=== PATIENT | male | born 1935 | race Caucasian/White ===

== ENCOUNTER → 2018-10-01 15:26 | Outpatient (CLI) | payer MEDICARE, SELFPAY ==
[2017-04-29 19:12] VITALS: BMI 32.2
== END ==
PROVIDERS: Family Provider Student in an Organized Health Care Education/Training Program; PCP Student in an Organized Health Care Education/Training Program; Referring Provider Otolaryngology; Visit Provider Otolaryngology
DX: J32.9 Chronic sinusitis, unspecified (principal)
CPT/HCPCS: 87070; 87205

== ENCOUNTER → 2019-01-21 | Outpatient (CLI) | payer MEDICARE, SELFPAY ==
[2018-12-16 14:39] VITALS: BMI 30.4
--- NOTE | 2019-01-21 14:47 | PFTCOMP_ITS ---
COMPLETE PULMONARY FUNCTION TEST INTERPRETATION Brief HPI: Patient is an 83 year old male, currently under the care of myself, who presents to [facility] for complete pulmonary function tests secondary to diagnosis of cough. Respiratory therapist reports good effort and reproducible results. Interpretation: Forced expiration spirometry shows no large airways obstructive ventilatory defect with an FEV1 of 94% predicted. There is some bronchodilator response, but this does not reach clinical significance by strict ATS criteria. Spirograms are of good quality and plateau normally. The respiratory flow volume loop shows a normal pattern. Lung volumes by body plethysmography show a normal total lung capacity at 4.98 L, 87% predicted. All other lung volumes are within normal limits. Diffusion capacity by carbon monoxide is normal at 82% predicted. The airway resistance is elevated. No previous pulmonary function tests were available for review. Impression: This point function tests are grossly within normal limits. Consider bronchop rovocation study if asthma is a consideration.
== END | disposition home or self-care (01) ==
LOC: PSN 09:50
PROVIDERS: Family Provider Student in an Organized Health Care Education/Training Program; PCP Student in an Organized Health Care Education/Training Program; Referring Provider Internal Medicine Critical Care Medicine; Visit Provider Internal Medicine Critical Care Medicine
DX: J30.2 Other seasonal allergic rhinitis (principal); R05 Cough
CPT/HCPCS: 94060; 94726; 94729

== ENCOUNTER 2019-02-19 12:14 | Day surgery (SDC) | payer MEDICARE, SELFPAY ==
[2019-02-02 10:51] VITALS: BMI 29.4
--- NOTE | 2019-02-18 12:53 | EKG12_ITS ---
Test Reason : PRE OP Blood Pressure : / mmHG Vent. Rate : 068 BPM Atrial Rate : 068 BPM P-R Int : 218 ms QRS Dur : 094 ms QT Int : 370 ms P-R-T Axes : 066 026 043 degrees QTc Int : 393 ms Sinus rhythm with sinus arrhythmia with 1st degree A-V block Otherwise normal ECG Confirmed by ORIANA SIMON, ALEJANDRA ([id number]), communications editor JOLLY BUNCH ([id number]) on 02/19/2019 8:15:16 AM Referred By: Saravanan Ribeiro Confirmed By:DAIN GASTELMU MD
[2019-02-18 13:28] LABS: Hemoglobin 11.7 g/dL (13.0-16.5); Mean Corp Hgb Conc 33.4 g/dL (32-36); Mean Corpuscular Hgb 33.2 pg (27.0-32.0); Mean Corpuscular Volume 99.4 fL (80-94); Mean Platelet Vol. 10.8 fl (6.2-12.0); RBC Distribution Width CV 14.2 % (11.6-14.6); RBC Distribution Width SD 51.5 fl (35.1-43.9); Red Blood Count 3.52 M/mm3 (4.6-6.2)
[2019-02-18 13:37] LABS: Platelet Count 101 K/mm3 (150-450)
[2019-02-18 13:38] LABS: Scan Indicated on CBC? Y/N NO
[2019-02-18 14:03] LABS: Anion Gap 8 (5-15); BUN 18 mg/dL (7-18); BUN/Creat Ratio 13.8 RATIO (10-20); Calcium,Total 8.7 mg/dL (8.5-10.1); Chloride 100 mmol/L (98-107); EST Glomerular Filtration Rate 56 mL/min (>60); Est Glom Filt Rate - Afr Amer 68 mL/min (>60); Glucose 224 mg/dL (74-106); Potassium 4.7 mmol/L (3.5-5.1); Sodium Level 135 mmol/L (136-145)
[2019-02-18 16:07] LABS: AST(SGOT) 29 U/L (15-37); Alanine Aminotransfer ALT/SGPT 39 U/L (16-61); Albumin, Serum 3.5 g/dL (3.2-5.0); Alkaline Phosphatase 100 U/L (45-117); Bilirubin, Direct 0.19 mg/dL (0.00-0.30); Globulin 2.9 g/dL (2.2-4.2); Protein, Total 6.4 g/dL (6.4-8.2)
[2019-02-18 16:20] LABS: Hemoglobin A1c 9.1 % (4.2-6.3)
[2019-02-19] VITALS (13 sets, daily range): BP systolic 95–154; BP diastolic 50–96; PULSE 66–82; RESP 16; TEMP 36.1–36.7; O2SAT 93–97; BMI 29.1
[2019-02-19] MEDS: Lactated Ringers 1,000 ML 75 ML IV (13:32)
[2019-02-19 13:37] LABS: Prothrombin Time (Protime)PT. 13.2 SECONDS (11.7-14.9)
[2019-02-19 13:38] LABS: Partial Thromboplast Time 25.5 Seconds (24.1-36.2)
[2019-02-19] MEDS: Cefazolin 2 GM in 0.9% Normal Saline 100 ML IV (14:01)
--- NOTE | 2019-02-19 14:10 | RAD_ITS ---
STUDY: X-RAY - LEFT ANKLE REASON FOR EXAM: Male, 83 years old. Reduction TECHNIQUE: 6 fluoroscopic images of the ankle. COMPARISON: None. FINDINGS: Fluoroscopic guidance was provided during reduction of a left ankle fracture. Correlation with the operative report is recommended. RAD/Ankle min 3 Views IMPRESSION: As above. Electronically Signed: Saravanan Navarrete, at 15:54 EDT Tel , Service support ,
[2019-02-19 14:41] LABS: Bedside Glucose 212 mg/dL (70-110)
--- NOTE | 2019-02-19 15:22 | PCM.OPRPT ---
Report of Operation Date of Procedure: 02/19/19 Pre-Operative Diagnosis: Trimalleolar ankle fracture, left Post-Operative Diagnosis: Trimalleolar ankle fracture, left Surgery/Procedure Performed:: Application multiplanar external fixator left lower extremity Description of Surgical Findings:: Stable fracture reduction equipment hire manager: Sotero Rodriguez Type of Anesthesia:: Spinal Anesthesiologist: Joshua Fabian Special Medications: 2 g Ancef Estimated Blood Loss (mL): 50 mL Fluids Replaced: Crystalloid Description of Procedure: On the date of the procedure patient's left lower extremity was marked in the preoperative area. Patient was brought back to the operating room with her transferred to the table in the supine position. Patient was set up for a spinal. After obtaining a spinal we placed him again in the supine position. Bump placed underneath the left hip. Blankets were placed underneath the left leg. Tourniquet was placed in left upper thigh. After patient was adequately sedated anesthesia assumed control C-spine airway and remained controlled throughout the remainder the procedure. All bony prominences were identified well-padded in the left lower external he was prepped in a sterile fashion. He did have a previous serous blister this was unroofed and no breaks in the skin were noted. After the patient was adequately prepped and the surgeon scrubbed for the left lower extremity was draped in a sterile fashion. Timeout was called and everyone agreed upon the side, the site, the procedure to be performed, patient identity and by skin. Initial skin incisions were marked out for the pin sites prison up the tibia. 3.5 mm drill bit was used to make 2 drill holes through the drill guide. 2 pins were placed these pins were 5 oh long threaded pins. Then got a lateral view to verify the length of the pins. Once we are happy with the length of our pins in depth of her pins we directed our attention to the calcaneus. A small incision was made medially over the calcaneal tuberosity. The calcaneal pin was placed medial to lateral. We then directed our attention to the foot. A 5.0 mm pin was placed at the base of the first meta tarsal. Once that was completed we placed the connectors in the bars in order to appropriately construct our multiplanar construct. Traction and varus reduction forces were placed on the ankle in order to adequately reduce the ankle. Once ankle was adequately reduced my library services assistant tightened all the bolts down. Traction was allowed off and the final x-rays were obtained verifying adequate alignment of the ankle fractures and ankle joint. These were obtained and AP, lateral and oblique views. Once was completed final tightening was done on the screws. Xeroform dressing was placed over the medial blister and pin sites. Sterile dressing was placed. Patient was awakened by anesthesia and transferred the PACU for recovery. Postoperative plan: Patient will take aspirin 325 mg daily until the ex-fix is removed. We will have the patient return to the office in 1 week to evaluate pin sites and obtain follow-up x-rays to make sure her fracture alignment is maintained. Based on maintenance of fracture alignment and soft tissues we will make adequate decisions for continued external fixator versus definitive internal fixation in the future. Grafts/Implants Used: Synthes external fixator - Complications No intraoperative complications - Admit VTE Documentation VTE Present on Admission: No VTE Mechan Device Prophylaxis: SCD's VTE Pharm Prophylaxis ordered?: Yes
--- NOTE | 2019-02-19 15:50 | RAD_ITS ---
STUDY: X-RAY - PELVIS AND RIGHT HIP REASON FOR EXAM: Male, 83 years old. Fall. Pain. TECHNIQUE: 3 views of the pelvis and right hip. COMPARISON: None. FINDINGS: There is a non-specific bowel gas pattern. Normal visualized soft tissue structures. Normal bilateral iliac wings, sacroiliac joints and visualized sacrum. Normal bilateral superior and inferior pubic rami. Normal pubic symphysis. Normal bilateral ischial tuberosities. Normal visualized femoral head. Normal acetabulum. There is mild articular joint space narrowing of the hip. RAD/HIP, UNI W/ Pelvis 2-3 Views IMPRESSION: No fracture or dislocation in the pelvis or right hip. Mild degenerative changes. Electronically Signed: Saravanan Navarrete, at 16:18 EDT Tel , Service support ,
[2019-02-19 17:01] LABS: Bedside Glucose 188 mg/dL (70-110)
== END 2019-02-19 20:28 | disposition home or self-care (01) ==
LOC: SDC 12:14 → AC 12:16
PROVIDERS: Family Provider Student in an Organized Health Care Education/Training Program; PCP Student in an Organized Health Care Education/Training Program; Referring Provider Specialist; Visit Provider Specialist
PROC: (CPT 20692; principal; 2019-02-19 13:50)
DX: S82.852A Displaced trimalleolar fracture of left lower leg, initial encounter for closed fracture (principal); E11.40 Type 2 diabetes mellitus with diabetic neuropathy, unspecified; M79.7 Fibromyalgia; M10.9 Gout, unspecified; J45.909 Unspecified asthma, uncomplicated; K21.9 Gastro-esophageal reflux disease without esophagitis; Z85.6 Personal history of leukemia; D69.6 Thrombocytopenia, unspecified; E78.00 Pure hypercholesterolemia, unspecified; Z79.84 Long term (current) use of oral hypoglycemic drugs; Z79.891 Long term (current) use of opiate analgesic; Z79.899 Other long term (current) drug therapy; X50.1XXA Overexertion from prolonged static or awkward postures, initial encounter; Y93.01 Activity, walking, marching and hiking; Y92.007 Garden or yard of unspecified non-institutional (private) residence as the place of occurrence of the external cause; Y99.8 Other external cause status
CPT/HCPCS: 20692; 36415; 73502; 73610; 76000; 80048; 80076; 82962; 83036; 85027; 85610; 85730; 93005; C1713; J7120

== ENCOUNTER → 2019-03-04 06:30 | Outpatient (CLI) | payer MEDICARE, SELFPAY ==
[2019-02-02 10:51] VITALS: BMI 29.4
[2019-02-19 13:15] VITALS: BMI 29.1
--- NOTE | 2019-03-04 12:11 | BRONCHALL_ITS ---
Bronchoprovocation Challenge - Bronchoprovocation Challenge Bronchoprovocation Challenge: BRONCHOPROVOCATION STUDY INTERPRETATION Brief HPI: Patient is an 83 year old male, currently under the care of myself, who presents to [facility] for a bronchoprovocation study secondary to diagnosis of cough. Respiratory therapist reports good effort and reproducible results. Interpretation: Initial spirometry showed no large airways obstructive ventilatory defect. The patient was then given increasingly concentrated doses of methacholine in a stepwise fashion, using a modified ATS protocol. The patient?s maximum reduction in FEV1 was 9 percent predicted. Impression: Negative Bronchoprovocation study. This is NOT consistent with the diagnosis of asthma.
== END ==
PROVIDERS: Family Provider Student in an Organized Health Care Education/Training Program; PCP Student in an Organized Health Care Education/Training Program; Referring Provider Internal Medicine Critical Care Medicine; Visit Provider Internal Medicine Critical Care Medicine
DX: R05 Cough (principal)
CPT/HCPCS: 94070; 95070; J3490; J7674

== ENCOUNTER 2019-11-24 09:36 | Observation (INO) | payer MEDICARE, SELFPAY ==
[2019-03-24 06:07] VITALS: BMI 29.1
[2019-11-24] VITALS (15 sets, daily range): BP systolic 106–177; BP diastolic 58–89; PULSE 63–70; RESP 18–23; TEMP 36.4–36.9; O2SAT 94–99; BMI 30.4; BMI 29.5
--- NOTE | 2019-11-24 09:45 | EKG12_ITS ---
Test Reason : CP Blood Pressure : / mmHG Vent. Rate : 069 BPM Atrial Rate : 069 BPM P-R Int : 196 ms QRS Dur : 098 ms QT Int : 374 ms P-R-T Axes : -02 020 030 degrees QTc Int : 400 ms Normal sinus rhythm Normal ECG Confirmed by INES MCGEE ([id number]), video effects editor JOLLY BUNCH ([id number]) on 11/29/2019 10:54:56 AM Referred By: Confirmed By:INES MCGEE
--- NOTE | 2019-11-24 09:46 | ED.VIS.GEN ---
History of Present Illness Chief Complaint: Chest Pain Informant: Patient Onset: Today Current Severity: Mild Maximum Severity: Mild Narrative: Patient presents secondary to chest pain. Upon awaking around 7 AM this morning he noted some left upper chest pain and dry throat. He does have some shortness of breath. He denies cough. Patient states pain goes into his back between his shoulder blades. Pain is worse with activity or with movement of his left arm. Pain improves with rest. He does have a history of aortic stenosis but denies any coronary artery disease. He has no cardiac stents. - Past Medical History (1) Hypertension Status: Chronic (2) BPH (benign prostatic hyperplasia) Status: Chronic (3) Chronic leukemia Status: Chronic (4) History of gout Status: Chronic (5) History of hyperlipidemia Status: Chronic (6) Diabetes Status: Chronic Past Medical History - Allergies and Home Meds Allergies/Adverse Reactions: Allergies Tgljbpg-Gph-Gwl Reductase Inhibitor Allergy (Verified 03/24/19 07:32) Pain in joints prednisone Adverse Reaction (Verified 03/24/19 07:32) Nausea/Vom/Diarrhea Prior records reviewed: Yes Lives: Spouse/ Significant Other Smoking Status: Never smoker - Family History Maternal Family History: Family History (Last Reviewed 11/24/19 @ 11:[address] Romeo Garcia DO) Mother Cancer Father Colon cancer Sister Cancer Brother Heart disease Family History: Reports: - Additional Family History: No heart disease Review of Systems General: Denies: Chills, Fever Eyes: Denies: Visual changes - bilaterally ENT: Denies: Bilateral ear pain Cardiovascular: Reports: Chest pain. Denies: Palpitations, Heart racing Respiratory: Reports: Dyspnea. Denies: Cough, Sputum Gastrointestinal: Denies: Abdominal pain, Nausea, Vomiting, Diarrhea Genitourinary: Denies: Dysuria Musculoskeletal: Reports: Swelling. Denies: Extremity Pain Skin: Denies: Rash Neurological: Denies: Headache Psych: Denies: Depression, Anxiety Hematologic: Denies: Easy bruising, Easy bleeding Allergy: Denies: Uticaria Physical Exam Vital Signs/Narrative: Vital Signs Temp Pulse Resp BP Pulse Ox 11/24/19 09:37 98.4 F 69 21 H 177/77 H 96 11/24/19 09:36 98.4 F 67 23 H 177/77 H 94 Inital Vital Signs reviewed: Yes General: Well nourished, Well developed Head: Normocephalic ENT: Moist mucous membranes Neck: Supple Cardiovascular: Regular rate, Regular rhythm, Murmur Respiratory: No distress, CTA bilaterally Abdomen: Soft, Nontender Extremities: - - 2-3+ left ankle edema secondary to prior fracture. Patient states chronic and unchanged. Skin: - - Old appearing ecchymosis of the left shoulder and left axilla. Neurological: Alert, Oriented x3 Psychological: Normal affect Diagnostic/Tx/Re-eval 11/24/19 10:00 Chest 1 View (Portable) [RAD] Stat Mild degree of increased markings at the right lung base with blunting of the right costophrenic angle. Laboratory Results 11/24/19 11/24/19 11/24/19 09:39 09:39 09:39 WBC 10.3 RBC 4.10 L Hgb 13.0 Hct 39.5 L MCV 96.3 H MCH 31.7 MCHC 32.9 RDW Std Deviation 57.6 H RDW Coeff of Samreen 16.7 H Plt Count 101 L MPV 10.6 Neut % (Auto) Not Reportable D-Dimer Quant (PE/DVT) 0.71 H* Sodium 137 Potassium 4.8 Chloride 104 Carbon Dioxide 28.0 Anion Gap 5 BUN 19 H Creatinine 1.19 Estim Creat Clear Calc 43.97 Est GFR (MDRD) Af Amer 75 Est GFR (MDRD) Non-Af 62 BUN/Creatinine Ratio 16.0 Glucose 157 H Calcium 9.1 Troponin I < 0.015 - EKG Initial EKG Interpretation: Sinus Rhythm - Sinus at 69 with no acute ischemia. - Medical Decision Making Patient was given aspirin on arrival. On repeat evaluation he is resting comfortably. Test results are discussed with patient. D-dimer is slightly elevated, however is normal when adjusted for age. I recommended observation for cycling of cardiac enzymes and possible stress test. PCP did advise me that patient has moderate aortic stenosis and EF was 68% in March 2019. Patient will be discussed with hospitalist. ED Disposition - Plan for ED Patient: Disposition: Acute Care [facility] Diagnosis: Chest pain
[2019-11-24] MEDS: Aspirin 81 MG TAB.CHEW 324 MG PO (09:52)
[2019-11-24 09:53] LABS: Hematocrit 39.5 % (40-54); Mean Corp Hgb Conc 32.9 g/dL (32-36); Mean Corpuscular Hgb 31.7 pg (27.0-32.0); Mean Corpuscular Volume 96.3 fL (80-94); Mean Platelet Vol. 10.6 fl (6.2-12.0); POSITIVE COUNT YES; POSITIVE MORPHOLOGY YES; Platelet Count 101 K/mm3 (150-450); RBC Distribution Width CV 16.7 % (11.6-14.6); RBC Distribution Width SD 57.6 fl (35.1-43.9); White Blood Count 10.3 K/mm3 (4.4-11.0)
[2019-11-24 09:56] LABS: Differential Indicated MANUAL DIFF
--- NOTE | 2019-11-24 10:00 | RAD_ITS ---
STUDY: X-RAY CHEST REASON FOR EXAM: Male, 84 years old. UPPER LEFT SIDE CHEST AND SHOULDER PAIN, RADIATES TO BACK, STARTED THIS MORNING TECHNIQUE: Single AP portable view of the chest. COMPARISON: Comparison is made with prior examination dated May 01, 2017. FINDINGS: EKG electrodes are seen. With again, there is evidence of an azygous lobe. There now is evidence of a mild degree of increased markings at the right lung base with blunting of the right costophrenic angle. This may represent atelectasis and/or early infiltrate. Normal size heart. Normal mediastinum and dianelys. Normal visualized pulmonary arteries. There is atherosclerotic calcification of the aortic arch with tortuosity. There are diffuse degenerative changes of the visualized thoracic spine. Normal visualized ribs, clavicles, and shoulders. There is no demonstrated abnormality of the visualized soft tissue structures of the upper abdomen. RAD/Chest 1 View (Portable) IMPRESSION: Mild degree of increased markings at the right lung base with blunting of the right costophrenic angle. Electronically Signed: Donnie Moreira, at 10:18 EDT , Service support ,
[2019-11-24 10:06] LABS: Anion Gap 5 (5-15); BUN 19 mg/dL (7-18); Calcium,Total 9.1 mg/dL (8.5-10.1); Chloride 104 mmol/L (98-107); Creatinine, Serum 1.19 mg/dL (0.70-1.30); EST Glomerular Filtration Rate 62 mL/min (>60); Est Glom Filt Rate - Afr Amer 75 mL/min (>60); Estimated Creatinine Clearance 43.97 ml/min; Glucose 157 mg/dL (74-106); Potassium 4.8 mmol/L (3.5-5.1); Sodium Level 137 mmol/L (136-145)
[2019-11-24 10:09] LABS: D-Dimer Quantitative (DVT/PE) 0.71 FEU/ug/m (0.27-0.49)
--- NOTE | 2019-11-24 10:55 | NURSING ---
DR FREEMAN FOR DR GRAY
--- NOTE | 2019-11-24 11:00 | NURSING ---
PCU OBS BETSY FREEMAN
--- NOTE | 2019-11-24 11:48 | HP.PCM_ITS ---
Problem List (1) Hypertension Status: Chronic (2) Diabetes Status: Chronic (3) Chest pain Status: Acute (4) Seasonal allergies Status: Chronic (5) Cough Status: Chronic (6) Radiculopathy of leg Status: Chronic Comment: Left d/t spinal stenosis (7) Spinal stenosis Status: Chronic (8) History of shingles Status: Chronic (9) History of hyperlipidemia Status: Chronic (10) History of gout Status: Chronic (11) BPH (benign prostatic hyperplasia) Status: Chronic (12) Chronic leukemia Status: Chronic Qualifiers: Leukemia Active/Remission status: without remission Qualified Code(s): C95.10 - Chronic leukemia of unspecified cell type not having achieved remission (13) History of non anemic vitamin B12 deficiency Status: Chronic History of Present Illness Date of Admission: 11/24/19 Chief Complaint: chest pain The patient is a 84 year old M who was in his normal state of health and then today had a left-sided chest pain went through to his back and down his left arm. Denied any other associated symptoms. Patient presented to the emergency room for evaluation. Work-up in the emergency room was unremarkable. The hospitalist service was contacted for admission. Patient denies ever having had chest pain like this previously. [] Past Medical History Past Medical History (Chronic Problems): Chronic Problems (Last Reviewed 03/24/19 @ 07:33 by Karen Adair) Hypertension (Chronic) Diabetes (Chronic) Seasonal allergies (Chronic) Cough (Chronic) Radiculopathy of leg (Chronic) Left d/t spinal stenosis Spinal stenosis (Chronic) History of shingles (Chronic) History of hyperlipidemia (Chronic) History of gout (Chronic) BPH (benign prostatic hyperplasia) (Chronic) Chronic leukemia (Chronic) History of non anemic vitamin B12 deficiency (Chronic) Medical History: Medical History (Last Reviewed 11/24/19 @ 11:[address] Romeo Garcia, DO) Elevated LFTs (Acute) R79.89 Severe sepsis (Acute) A41.9, R65.20 Radiculopathy of leg (Chronic) M54.10 Left d/t spinal stenosis Spinal stenosis (Chronic) M48.00 History of shingles (Chronic) Z86.19 History of hyperlipidemia (Chronic) Z86.39 History of gout (Chronic) Z87.39 BPH (benign prostatic hyperplasia) (Chronic) Chronic leukemia (Chronic) C95.10 History of non anemic vitamin B12 deficiency (Chronic) Z86.39 Allergies Gzlpmzp-Kdt-Dbh Reductase Inhibitor Allergy (Verified 03/24/19 07:32) Pain in joints prednisone Adverse Reaction (Verified 03/24/19 07:32) Nausea/Vom/Diarrhea Home Medications: Ambulatory Orders Medication Instructions Recorded Allopurinol [Zyloprim] 100 mg PO BID 04/29/17 B Complex W-C No.20/Folic Acid 1 mg PO DAILY 04/29/17 [Nephrocaps Softgel] Cholecalciferol (Vitamin D3) 5,000 unit PO DAILY 04/29/17 [Vitamin D3] Cyanocobalamin [Vitamin B12] 1,000 mcg IM Q30D 04/29/17 Duloxetine HCl 60 mg PO DAILY 04/29/17 Gabapentin [Neurontin] 600 mg PO TID 04/29/17 Gemfibrozil [Lopid] 600 mg PO QHS 04/29/17 Hydrocodone Bitart/Apap 5-325 1 tab PO DAILY PRN 04/29/17 [[place] 5/325] Ibuprofen 400 mg PO TID 04/29/17 Ketoconazole 120 ml TP DAILY 04/29/17 Metformin HCl 500 mg PO BID 04/29/17 Multivitamin [Daily Multiple 1 ea PO DAILY 04/29/17 Vitamin] Omeprazole [Prilosec] 20 mg PO QHS 04/29/17 cycloBENZAPRine HCl [Flexeril] 10 mg PO DAILY PRN 04/29/17 Dextran 70/Hypromellose/Pf 1 ea OP PRN PRN 02/18/19 [Artificial Tears Drops] Ibrutinib [Imbruvica] 420 mg PO LUNCH 02/18/19 Lives: Spouse/ Significant Other Smoking Status: Never smoker - *Family History Maternal Family History: Family History (Last Reviewed 11/24/19 @ 11:[address] Romeo Garcia, DO) Mother Cancer Father Colon cancer Sister Cancer Brother Heart disease History Items: - Review of Systems Constitutional: Denies: Anorexia, Fever, Night Sweats Eyes: Denies: Blurred vision, Double vision HEENT: Denies: Head Aches, Sinus Congestion, Sinus Drainage Cardiovascular: Reports: Chest Pain, Edema - Chronic swelling in left ankle due to ankle fracture no change currently.. Denies: Palpitations Respiratory: Denies: Cough, Shortness of breath at rest, Sputum production Gastrointestinal: Reports: Nausea. Denies: Abdominal Pain, Vomiting Genitourinary: Denies: Dysuria Musculoskeletal: Denies: Joint Pain, Joint Tenderness Skin: Denies: Dryness, Jaundice Hematologic/ Lymphatic: Denies: Easy Bruising, Easy Bleeding, Hx of blood clot Comment: All review of systems were negative except as mentioned above in the history of present illness and the other review of systems. VTE Information - Inpt Only VTE Present on Admission: No VTE Mechan Device Prophylaxis: None VTE Pharm Prophylaxis ordered?: No Reason prophylaxis not ordered:: Treatment Not Indicated Patient Problems: Active and Suspected Problems (Last Reviewed 03/24/19 @ 07:33 by Karen Adair) Chest pain (Acute) - Physical Exam Vitals/I&O's: Vital Signs Temp Pulse Resp BP Pulse Ox 36.9 C 63 18 154/74 H 99 11/24/19 11:24 11/24/19 11:24 11/24/19 11:24 11/24/19 11:24 11/24/19 11:24 Oxygen Delivery Method Room Air Weight: 85.4 kg Body Mass Index (BMI) 29.5 Finger Stick Blood Glucose 188 General: Alert, No apparent distress HEENT: Atraumatic, Normocephalic Oral: Moist Mucosa, No Gingival or Mucosal Lesions/ Ulcerations Neck: No Nodes, Trachea Midline Lungs: Clear to auscultation, Normal air movement, No rhonchi, No wheeze, No rales Cardiovascular: Regular rate, Regular Rhythm, Normal S1, Normal S2, No murmurs Abdomen: Bowel Sounds Present, Soft, Non Tender, Non-Distended, No Hepato- splenomegaly Extremities: No Calf Tenderness, Edema - Slight edema around the left ankle. Skin: No rashes, No breakdown, - Musculoskeletal: No Tenderness to Palpation of Joints or Extremities, No Muscle Wasting Psych/Mental Status: Normal Affect, Appropriate Laboratory Results 11/24/19 09:39: WBC 10.3, RBC 4.10 L, Hgb 13.0, Hct 39.5 L, MCV 96.3 H, MCH 31.7, MCHC 32.9, RDW Std Deviation 57.6 H, RDW Coeff of Samreen 16.7 H, Plt Count 101 L, MPV 10.6, Neut % (Auto) Not Reportable, Absolute Neuts (auto) Pending 11/24/19 09:39: D-Dimer Quant (PE/DVT) 0.71 H* 11/24/19 09:39: Sodium 137, Potassium 4.8, Chloride 104, Carbon Dioxide 28.0, Anion Gap 5, BUN 19 H, Creatinine 1.19, Estim Creat Clear Calc 43.97, Est GFR (MDRD) Af Amer 75, Est GFR (MDRD) Non-Af 62, BUN/Creatinine Ratio 16.0, Glucose 157 H, Calcium 9.1, Troponin I < 0.015 Current Medications Sodium Chloride () 500 mls @ 15 mls/hr IV PRN PRN PRN Reason: Blood Transfusion Sodium Chloride () 250 mls @ 15 mls/hr IV .[id number] PRN PRN Reason: Saline Flush Sodium Chloride () 250 mls @ 15 mls/hr IV .[id number] PRN PRN Reason: Additional IVPB Infusion Sodium Chloride () 10 - 40 ml IV UD PRN PRN Reason: SALINE FLUSH Assessment/Plan All Active Problems (Last Reviewed 03/24/19 @ 07:33 by Karen Adair) Chest pain (Acute) 1. Chest pain: Heart score of 4, AFSANEH score of 2. Patient received aspirin in the emergency room and will continue with. Patient has a history of ischemic ankle fracture and he does not feel that he could be able to walk at a very brisk pace so will order a chemical stress test. Patient will have a stress echocardiogram performed on the . EKG showed normal sinus rhythm and follow-up EKG showed no STEMI. 2. Diabetes mellitus type 2: Patient on metformin. Sliding scale insulin. The patient does need a left heart catheterization, would discontinue the metformin. 3. CLL: Chronic process. Complicates overall picture. Follow-up at the [facility]. 4. VTE prophylaxis: Low risk as he is observation status. 5. Advanced care planning: Patient wishes to be full CODE STATUS. OBSV E&M: [id number] Initial observation care L2
--- NOTE | 2019-11-24 11:53 | EKG12_ITS ---
Test Reason : CP Blood Pressure : / mmHG Vent. Rate : 068 BPM Atrial Rate : 068 BPM P-R Int : 238 ms QRS Dur : 100 ms QT Int : 384 ms P-R-T Axes : 005 032 058 degrees QTc Int : 408 ms Sinus rhythm with 1st degree A-V block Otherwise normal ECG When compared with ECG of 24-NOV-2019 11:29, MANUAL COMPARISON REQUIRED, DATA IS UNCONFIRMED Confirmed by ORIANA SIMON, ALEJANDRA ([id number]), editor publications JOLLY BUNCH ([id number]) on 11/29/2019 11:44:11 AM Referred By: PETE Confirmed By:DAIN GASTELUM MD
[2019-11-24 12:06] LABS: Basophil 1 % (0-1); Eosinophil 2 % (0-5); Lymphocyte 12 % (19-41); Metamyelocyte 1 % (0-1); Monocyte 7 % (0-10); Myelocyte 1 (0-0); Neutrophil-Segmented 72 % (47-70); Promyelocyte 4 (0-0); Total Cells Counted 100 (MANUAL DIFF)
[2019-11-24 12:07] LABS: Platelet Estimate SLT (ADEQ); Red Cell Morphology NORM C+C NORMAL (NORM C&C)
[2019-11-24 12:09] LABS: Absolute Neutrophil Count 7.4 X10^3/uL (2.0-7.7)
[2019-11-24] MEDS: Nitroglycerin (INPATIENT USE) 0.4 MG TAB.SUBL SUBLINGUAL ×5 (12:15→21:23)
[2019-11-24 12:36] LABS: Bedside Glucose 120 mg/dL (70-110)
--- NOTE | 2019-11-24 12:52 | NURSING ---
This RN called and updated the pt's , Becca.
[2019-11-24] MEDS: IBRUTINIB 140 MG CAPSULE 420 MG PO (14:42)
[2019-11-24] MEDS: Gabapentin 600 MG Tablet PO (16:51)
[2019-11-24] MEDS: Allopurinol 100 MG Tablet PO (16:51)
[2019-11-24] MEDS: metFORMIN HCl 500 MG Tablet PO (16:51)
[2019-11-24] MEDS: Insulin Lispro 100 UNIT/ML INSULN.PEN SC (16:57)
[2019-11-24 17:11] LABS: Bedside Glucose 185 mg/dL (70-110)
--- NOTE | 2019-11-24 20:15 | EKG12_ITS ---
Test Reason : CP Blood Pressure : / mmHG Vent. Rate : 065 BPM Atrial Rate : 065 BPM P-R Int : 256 ms QRS Dur : 104 ms QT Int : 390 ms P-R-T Axes : 073 046 043 degrees QTc Int : 405 ms Sinus rhythm with 1st degree A-V block Otherwise normal ECG When compared with ECG of 24-NOV-2019 11:27, MANUAL COMPARISON REQUIRED, DATA IS UNCONFIRMED Confirmed by ORIANA SIMON, ALEJANDRA ([id number]), news videotape editor JOLLY BUNCH ([id number]) on 11/29/2019 11:44:52 AM Referred By: NENA Confirmed By:DAIN GASTELUM MD
[2019-11-24] MEDS: Pantoprazole Sodium 20 MG Tablet PO (21:23)
[2019-11-24] MEDS: Gemfibrozil 600 MG Tablet PO (21:23)
[2019-11-25] VITALS (7 sets, daily range): BP systolic 146–150; BP diastolic 65–76; PULSE 69–74; RESP 16; TEMP 36.5–36.9; O2SAT 96–98
[2019-11-25] MEDS: Aspirin E.C. 81 MG Tablet PO (05:48)
--- NOTE | 2019-11-25 05:55 | EKG12_ITS ---
Test Reason : AM EKG Blood Pressure : / mmHG Vent. Rate : 069 BPM Atrial Rate : 069 BPM P-R Int : 248 ms QRS Dur : 098 ms QT Int : 384 ms P-R-T Axes : 046 041 031 degrees QTc Int : 411 ms Sinus rhythm with 1st degree A-V block Otherwise normal ECG When compared with ECG of 24-NOV-2019 20:41, MANUAL COMPARISON REQUIRED, DATA IS UNCONFIRMED Confirmed by ORIANA SIMON, ALEJANDRA ([id number]), editor managing director JOLLY BUNCH ([id number]) on 11/29/2019 11:42:56 AM Referred By: PETE Confirmed By:DAIN GASTELUM MD
[2019-11-25 06:16] LABS: Bedside Glucose 163 mg/dL (70-110)
[2019-11-25 06:40] LABS: Cholesterol 183 mg/dL (200); High Density Lipoprotein 35 mg/dL; Triglycerides 143 mg/dL; Very Low Density Lipoprotein 29 mg/dL (5-40)
[2019-11-25] MEDS: HYDROcodone Bitartrate/Apap 5/325 Tablet PO (07:11)
[2019-11-25] MEDS: Acetaminophen 325 MG Tablet 650 MG PO (07:11)
[2019-11-25 07:15] LABS: Bedside Glucose 145 mg/dL (70-110)
[2019-11-25 09:59] LABS: Pathologist Review Reviewed
[2019-11-25] MEDS: Insulin Lispro 100 UNIT/ML INSULN.PEN SC (11:11)
[2019-11-25] MEDS: Glycerin/Hypromellose/PEG400 15 ml Bottle 1 DRP EACH EYE (11:12)
[2019-11-25] MEDS: Gabapentin 600 MG Tablet PO (11:14)
[2019-11-25] MEDS: Allopurinol 100 MG Tablet PO (11:14)
[2019-11-25] MEDS: Multivitamins,Therapeutic Tablet 1 TABLET PO (11:14)
[2019-11-25] MEDS: DULoxetine Hcl 60 MG Capsule PO (11:14)
[2019-11-25] MEDS: Folic Acid/Vitamin B Comp W-C 1 Capsule 1 CAP PO (11:14)
[2019-11-25] MEDS: metFORMIN HCl 500 MG Tablet PO (11:14)
[2019-11-25] MEDS: IBRUTINIB 140 MG CAPSULE 420 MG PO (11:15)
[2019-11-25 12:10] LABS: Bedside Glucose 192 mg/dL (70-110)
--- NOTE | 2019-11-25 12:57 | STRESSREP ---
Stress Test Report Date: 11/25/2019 Procedure: Pharmacologic stress nuclear imaging study Indications: Chest pain Consent: Per the patient Procedure: The patient underwent pharmacologic (Regadenoson) evaluation with a peak heart rate of 85 beats per minute (62 %predicted maximal heart rate) and a peak blood pressure of 148/84 mmHg. The baseline ECG demonstrated normal sinus rhythm. EKG during lexiscan infusion revealed no significant ischemic changes. EKG post infusion revealed no significant ischemic changes [There were no cardiac dysrhythmias pretest, during pharmacologic infusion, or recovery]. [There was no complaint of chest discomfort during pharmacologic infusion or recovery]. The examination was discontinued secondary to completion of protocol. Impression: 1. Lexiscan stress test test is negative for Lexiscan infusion induced EKG changes of ischemia. 2. Lexiscan stress test test is negative for Lexiscan infusion induced chest pain. 3. Results of the nuclear portion of the test is as below Myocardial perfusion imaging study: Technique: The patient was injected with 12 millicuries of technetium 99m Cardiolite and subsequently rest SPECT Cardiolite nuclear imaging was obtained in the horizontal long, vertical long, and short axis views. The patient underwent pharmacologic (Regadenoson) evaluation. Please see above for details. The patient was injected with 36 millicuries of technetium 99m Cardiolite and subsequently stress SPECT Cardiolite nuclear imaging was obtained in the horizontal long, vertical long, and short axis views. A gated Cardiolite study at peak stress was obtained. Interpretation: Rest and stress SPECT Cardiolite nuclear imaging status post realignment, normalization, and attenuation correction demonstrate overall normal myocardial radioisotope uptake. Gated images reveal no significant regional wall motion abnormalities. The reported LVEF is greater than 70 %. Impression: 1. There is no evidence of significant ischemia or infarction. 2. Estimated ejection fraction is greater than 70%. This note was generated with [employer] software. It may contain incorrect words, spelling, and punctuation that were not noted in checking the note before signing.
--- NOTE | 2019-11-25 14:54 | PCM.DC ---
- Discharge Diagnoses Current Active Problems: Current Active and Chronic Problems (Last Reviewed 11/24/19 @ 11:[address] Romeo Garcia DO) Chest pain (Acute) You will use the following diet at home:: No restrictions Call your doctor if you observe: Fever of 101 or Higher, Shortness of breath Allergies/Adverse Reactions: Allergies Piihgry-Six-Bfy Reductase Inhibitor Allergy (Verified 03/24/19 07:32) Pain in joints prednisone Adverse Reaction (Verified 03/24/19 07:32) Nausea/Vom/Diarrhea Medications to take at Discharge Allopurinol [Zyloprim] 100 mg PO BID 04/29/17 B Complex W-C No.20/Folic Acid [Nephrocaps Softgel] 1 mg PO DAILY 04/29/17 Cholecalciferol (Vitamin D3) [Vitamin D3] 5,000 unit PO DAILY 04/29/17 Cyanocobalamin [Vitamin B12] 1,000 mcg IM Q30D 04/29/17 Duloxetine HCl 60 mg PO DAILY 04/29/17 Gabapentin [Neurontin] 600 mg PO TID 04/29/17 Gemfibrozil [Lopid] 600 mg PO QHS 04/29/17 Hydrocodone Bitart/Apap 5-325 [[place] 5/325] 1 tab PO DAILY PRN 04/29/17 Ibuprofen 400 mg PO TID 04/29/17 Metformin HCl 500 mg PO BID 04/29/17 Multivitamin [Daily Multiple Vitamin] 1 ea PO DAILY 04/29/17 Omeprazole [Prilosec] 20 mg PO QHS 04/29/17 cycloBENZAPRine HCl [Flexeril] 10 mg PO DAILY PRN 04/29/17 Dextran 70/Hypromellose/Pf [Artificial Tears Drops] 1 ea OP PRN PRN 02/18/19 Ibrutinib [Imbruvica] 420 mg PO LUNCH 02/18/19 Primary Care Physician: Daniel Camejo DO [Primary Care Provider] - Within 2 Weeks Test Results: Test results from this visit will be discussed in further detail at your follow-up appointment, if applicable. Please Follow Up With: Daniel Camejo DO Proposed Discharge Date: 11/25/19
--- NOTE | 2019-11-25 14:55 | PCM.DC.SUM ---
Discharge Date and Diagnosis - Problem List Patient Problems: Active and Suspected Problems (Last Reviewed 11/24/19 @ 11:[address] Romeo Garcia DO) Chest pain (Acute) Date of Admission: 11/24/19 Date of Discharge: 11/25/19 - Primary Discharge Diagnosis Acute Problems: Active Problems (Last Reviewed 11/24/19 @ 11:[address] Romeo Garcia DO) Chest pain (Acute) - Secondary Discharge Diagnosis Chronic Problems: Chronic Problems (Last Reviewed 11/24/19 @ 11:[address] 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 There is no evidence of significant ischemia or infarction. 2. Estimated ejection fraction is greater than 70%. Summary of Care Provided: The patient is a 84 year old M presents with left-sided chest pain. Chest pain was reproducible. Patient underwent a stress test that was negative for inducible ischemia. Chest pain is felt to be musculoskeletal. Patient be discharged home in stable condition. [] Patient Problems: Active and Suspected Problems (Last Reviewed 11/24/19 @ 11:[address] Romeo Garcia DO) Chest pain (Acute) - Physical Exam Vitals/I&O's: Vital Signs Temp Pulse Resp BP Pulse Ox 36.5 C L 71 16 147/65 H 98 11/25/19 11:07 11/25/19 14:44 11/25/19 11:07 11/25/19 11:07 11/25/19 11:07 Oxygen Flow Rate (L/min) 2 Oxygen Delivery Method Room Air Weight: 85.4 kg Body Mass Index (BMI) 29.5 Finger Stick Blood Glucose 188 Intake and Output for Last 24 Hours 11/23/19 11/24/19 11/25/19 23:59 23:59 23:59 Intake Total 540 / 540 Balance 540 / 540 General: Alert, No apparent distress HEENT: Atraumatic, Normocephalic Oral: Moist Mucosa, No Gingival or Mucosal Lesions/ Ulcerations Lungs: Clear to auscultation, Normal air movement, No rhonchi, No wheeze Musculoskeletal: - - reproducible Left upper chest and left upper back tenderness. Psych/Mental Status: Normal Affect, Agitated Laboratory Results 11/24/19 09:39: Diff Path Review Reviewed 11/24/19 16:10: Troponin I < 0.015 11/24/19 16:48: POC Glucose 185 H 11/24/19 21:29: POC Glucose 163 H 11/25/19 05:53: Triglycerides 143, Cholesterol 183, LDL Cholesterol 119, VLDL Cholesterol 29, HDL Cholesterol 35 L 11/25/19 06:36: POC Glucose 145 H 11/25/19 11:09: POC Glucose 192 H Current Medications Acetaminophen (Tylenol) 650 mg PO Q6H PRN PRN PRN Reason: Pain Score 1-10/Temp > 100.7 F Last Admin: 11/25/19 07:11 Dose: 650 mg Documented by: Hydrocodone Bitart/Acetaminophen (Edgar 5mg-325mg) 1 tablet PO DAILY PRN PRN Reason: Pain Score 1-10/10 Last Admin: 11/25/19 07:11 Dose: 1 tablet Documented by: [facility] Last Admin: 11/25/19 11:14 Dose: 100 mg Documented by: Aspirin (Ecotrin) 81 mg PO DAILY@0800 [facility] Last Admin: 11/25/19 05:48 Dose: 81 mg Documented by: Cholecalciferol (Vitamin D (25mcg)) [facility] Last Admin: 11/25/19 11:14 Dose: 5,000 unit Documented by: Cyanocobalamin (Vitamin B12) 1,000 mcg IM Q30D [facility] Cyclobenzaprine HCl (Flexeril) 10 mg PO DAILY PRN PRN Reason: Pain Score 1-10/10 Dextrose (D50w Syringe) 0 gm IV X1 PRN; Protocol PRN Reason: Hypoglycemia Duloxetine HCl (Cymbalta) 60 mg PO DAILY [facility] Last Admin: 11/25/19 11:14 Dose: 60 mg Documented by: Gabapentin (Neurontin) 600 mg PO TIDCM [facility] Last Admin: 11/25/19 12:10 Dose: Not Given Documented by: Gemfibrozil (Lopid) 600 mg PO QHS [facility] Last Admin: 11/24/19 21:23 Dose: 600 mg Documented by: Glucagon () 1 mg IM .X1 PRN PRN Reason: Hypoglycemia Insulin Human Lispro (Humalog Kwikpen (Bkc)) [facility]; Protocol Last Admin: 11/25/19 11:11 Dose: 2 unit Documented by: Metformin HCl (Glucophage) [facility] Last Admin: 11/25/19 11:14 Dose: 500 mg Documented by: Multivit/Ca Carb/B Cmplx/FA/Prenat (Nephrocaps, Renaphro) [facility] capsule [facility] Last Admin: 11/25/19 11:14 Dose: 1 capsule Documented by: Multivitamins (Multivitamin) 1 tablet PO DAILY@0800 [facility] Last Admin: 11/25/19 11:14 Dose: 1 tablet Documented by: Nitroglycerin (Nitrostat) 0.4 mg SUBLINGUAL Q5M PRN PRN Reason: CHEST PAIN Last Admin: 11/24/19 21:23 Dose: 0.4 mg Documented by: Ondansetron HCl (Zofran) 4 mg IV Q8H PRN PRN PRN Reason: NAUSEA/VOMITING Pantoprazole Sodium (Protonix) 20 mg PO QHS [facility] Last Admin: 11/24/19 21:23 Dose: 20 mg Documented by: Discharge Diet: No Restrictions Call your doctor if you observe: Fever of 101 or Higher, Shortness of breath Home Medications: Medications to take at Discharge Allopurinol [Zyloprim] 100 mg PO BID 04/29/17 B Complex W-C No.20/Folic Acid [Nephrocaps Softgel] 1 mg PO DAILY 04/29/17 Cholecalciferol (Vitamin D3) [Vitamin D3] 5,000 unit PO DAILY 04/29/17 Cyanocobalamin [Vitamin B12] 1,000 mcg IM Q30D 04/29/17 Duloxetine HCl 60 mg PO DAILY 04/29/17 Gabapentin [Neurontin] 600 mg PO TID 04/29/17 Gemfibrozil [Lopid] 600 mg PO QHS 04/29/17 Hydrocodone Bitart/Apap 5-325 [[place] 5/325] 1 tab PO DAILY PRN 04/29/17 Ibuprofen 400 mg PO TID 04/29/17 Metformin HCl 500 mg PO BID 04/29/17 Multivitamin [Daily Multiple Vitamin] 1 ea PO DAILY 04/29/17 Omeprazole [Prilosec] 20 mg PO QHS 04/29/17 cycloBENZAPRine HCl [Flexeril] 10 mg PO DAILY PRN 04/29/17 Dextran 70/Hypromellose/Pf [Artificial Tears Drops] 1 ea OP PRN PRN 02/18/19 Ibrutinib [Imbruvica] 420 mg PO LUNCH 02/18/19 Primary Care Physician: Daniel Camejo DO [Primary Care Provider] - Within 2 Weeks Please Follow Up With: Daniel Camejo DO Minutes spent on discharge:: 25 Patient Condition:: Good Medical Necessity - Tobacco Use Smoking Status: Never smoker Meaningful Use Info Meaningful Use Diagnoses (Choose all that apply): None applicable OBSV E&M: 53298 Observation care discharge
--- NOTE | 2019-11-25 15:13 | CASEMGMT ---
This RN MICHELLE to room with HERRERA form at this time, explanation done-pt voices understanding, and signs HERRERA form at this time. Original to chart and copy to pt at this time. Pt voices no further questions/concerns/needs at this time. SStaten RAH MARTINEZ
== END 2019-11-25 14:54 | disposition home or self-care (01) ==
LOC: ED 10:51 → PCU 11-25 06:52
PROVIDERS: Emergency Provider Emergency Medicine; PCP Student in an Organized Health Care Education/Training Program
DX: R07.89 Other chest pain (principal); R06.02 Shortness of breath; I10 Essential (primary) hypertension; E78.5 Hyperlipidemia, unspecified; N40.0 Benign prostatic hyperplasia without lower urinary tract symptoms; C95.90 Leukemia, unspecified not having achieved remission; E11.9 Type 2 diabetes mellitus without complications; Z79.899 Other long term (current) drug therapy; Z79.84 Long term (current) use of oral hypoglycemic drugs
CPT/HCPCS: 36415; 71045; 78452; 80048; 80061; 82962; 84484; 85025; 85379; 93005; 93017; 99218; 99284; A9500; A4216; G0378; J2785

== ENCOUNTER 2019-12-07 11:54 | Emergency (ER) | payer MEDICARE, OTHER, SELFPAY ==
[2019-11-24 11:39] VITALS: BMI 29.5
[2019-12-07 11:55] VITALS: BP 130/79; PULSE 69; RESP 18; TEMP 36.9; O2SAT 95; BMI 30.5
--- NOTE | 2019-12-07 12:17 | RAD_ITS ---
STUDY: X-RAY CHEST REASON FOR EXAM: Male, 84 years old. Cough and shortness of breath. TECHNIQUE: Single AP portable view of the chest. COMPARISON: Comparison is made with prior examination of November 24, 2019. FINDINGS: EKG electrodes are seen. Azygos lobe. Since prior study, there has been progressive increased markings at the lung bases more prominent on the right side. Follow-up is recommended. There is no demonstrated pleural abnormality. Normal size heart. Normal mediastinum and dianelys. Normal visualized pulmonary arteries. There is atherosclerotic calcification of the aortic arch with tortuosity. There are diffuse degenerative changes of the visualized thoracic spine. Normal visualized ribs, clavicles, and shoulders. There is no demonstrated abnormality of the visualized soft tissue structures of the upper abdomen. RAD/Chest 1 View (Portable) IMPRESSION: Progressive increased markings at the lung bases suggestive of progressive infiltrates. Follow-up is recommended. Electronically Signed: Donnie Moreira, at 13:05 EDT , Service support ,
--- NOTE | 2019-12-07 12:17 | EKG12_ITS ---
Test Reason : SOB Blood Pressure : / mmHG Vent. Rate : 071 BPM Atrial Rate : 070 BPM P-R Int : 000 ms QRS Dur : 094 ms QT Int : 370 ms P-R-T Axes : 000 022 044 degrees QTc Int : 402 ms NSR with PAC's Confirmed by INES MCGEE ([id number]), associate editor MEGAN ARGUETA ([id number]) on 12/09/2019 7:38:42 AM Referred By: GENEVA Confirmed By:INES MCGEE
[2019-12-07 12:46] VITALS: PULSE 71; RESP 16
[2019-12-07 12:55] LABS: Hematocrit 35.3 % (40-54); Hemoglobin 11.7 g/dL (13.0-16.5); Mean Corp Hgb Conc 33.1 g/dL (32-36); Mean Corpuscular Hgb 32.2 pg (27.0-32.0); Mean Corpuscular Volume 97.2 fL (80-94); Mean Platelet Vol. 10.7 fl (6.2-12.0); POSITIVE COUNT YES; POSITIVE MORPHOLOGY YES; Platelet Count 142 K/mm3 (150-450); RBC Distribution Width CV 16.7 % (11.6-14.6); RBC Distribution Width SD 58.7 fl (35.1-43.9); Red Blood Count 3.63 M/mm3 (4.6-6.2); White Blood Count 9.5 K/mm3 (4.4-11.0)
[2019-12-07 12:56] LABS: Differential Indicated MANUAL DIFF
[2019-12-07 13:09] LABS: D-Dimer Quantitative (DVT/PE) 0.71 FEU/ug/m (0.27-0.49)
--- NOTE | 2019-12-07 13:09 | ED.RN ---
D-DIMER OF 0.[address] IRAHETA. VERBALIZES UNDERSTANDING
[2019-12-07 13:15] LABS: Anion Gap 7 (5-15); BUN 19 mg/dL (7-18); BUN/Creat Ratio 15.3 RATIO (10-20); Calcium,Total 9.4 mg/dL (8.5-10.1); Chloride 99 mmol/L (98-107); Creatinine, Serum 1.24 mg/dL (0.70-1.30); EST Glomerular Filtration Rate 59 mL/min (>60); Est Glom Filt Rate - Afr Amer 72 mL/min (>60); Glucose 141 mg/dL (74-106); Potassium 4.7 mmol/L (3.5-5.1); Sodium Level 134 mmol/L (136-145)
[2019-12-07 13:18] LABS: Eosinophil 6 % (0-5); Lymphocyte 16 % (19-41); Metamyelocyte 7 % (0-1); Monocyte 4 % (0-10); Neutrophil-Band 2 % (0-5); Neutrophil-Segmented 65 % (47-70); Total Cells Counted 100 (MANUAL DIFF)
[2019-12-07 13:19] LABS: Platelet Estimate ADEQUATE (ADEQ); Red Cell Morphology NORM C+C NORMAL (NORM C&C)
[2019-12-07 13:20] LABS: Absolute Lymphocyte Count 1.52 X10^3/uL (0.83-4.51); Absolute Neutrophil Count 6.4 X10^3/uL (2.0-7.7); Lymphocyte # 1.52 X10^3/ul (4.0); Neutrophil # 6.39 X10^3/uL (2.7-7.7)
[2019-12-07 13:31] LABS: BNP,B-Type NATRIURETIC PEPTIDE 16.2 pg/mL (0-100)
--- NOTE | 2019-12-07 14:15 | ED.DEP ---
ED Disposition - Plan for ED Patient: Instructions: Pneumonia Prescriptions: Levofloxacin [Levaquin] 750 mg PO DAILY #7 tab Transmission Status: Pending to [facility] Referrals: Daniel Camejo DO [Primary Care Provider] - 3-5 Days
--- NOTE | 2019-12-07 14:16 | ED.DCSUM_ITS ---
- ER Visit Summary Date of Service: 12/07/19 Chief Complaint: [Cough and shortness of breath] History of Present Illness: The patient is a 84 M [presents to the emergency department complaint of cough and shortness of breath that he started with 2 weeks ago. Patient denies any fevers. He denies any chest pain. He complains of orthopnea at night and had a hard time sleeping last night unless he was sitting up. He has no known COVID-19 exposures. Patient has history of diabetes, hypertension, high cholesterol.] Physical Examination: [HEENT-PERRLA, EOMI. Cranial nerves II through XII grossly intact. TMs clear. Mucous membranes moist. No adenopathy. Cardiovascular-regular rate and rhythm without murmur or ectopy Lungs-clear to auscultation, chest wall stable without crepitus or subcu emphysema Abdomen-normoactive bowel sounds, soft, nontender, no rebound or rigidity, no peritoneal signs. Extremities-intact ?4, normal range of motion, normal pulses, atraumatic] Test Results: [CBC with differential obtained showed a white count of 9.5, hemog lobin 11.7, hematocrit 35, plates 142. Chemistries unremarkable. Troponin is less than 0.15. D-dimer was normal when corrected for age 8.71. BNP was 16. Chest x-ray showed bibasilar increased markings cannot rule out infiltrates. COVID-19 test ordered and pending.] Emergency Department Course and Treatment: [] Patient was started on Levaquin p.o. Treatment Plan: [Patient will be treated with Levaquin and albuterol MDI. We will let the patient know his COVID-19 results. Advised to quarantine.] Disposition: [Discharged to home in stable condition. Patient advised to return if increasing shortness of breath or condition should worsen anyway.] Impression: [Pneumonia] This note was generated with [employer] dictation software. It may contain incorrect words, spelling, and punctuation that were not noted in review of the chart prior to signing ED Disposition - Plan for ED Patient: Instructions: Pneumonia Prescriptions: Levofloxacin [Levaquin] 750 mg PO DAILY #7 tab Transmission Status: Pending to [facility] Referrals: Daniel Camejo DO [Primary Care Provider] - 3-5 Days
[2019-12-07] MEDS: levoFLOXacin 750 MG Tablet PO (14:34)
[2019-12-07 14:35] VITALS: BP 120/64; PULSE 71; RESP 14; O2SAT 96
[2019-12-08 11:34] LABS: Pathologist Review Reviewed
== END 2019-12-07 14:39 | disposition home or self-care (01) ==
LOC: ED 13:48
PROVIDERS: Emergency Provider Emergency Medicine; PCP Student in an Organized Health Care Education/Training Program
DX: J18.9 Pneumonia, unspecified organism (principal); R06.02 Shortness of breath; E78.00 Pure hypercholesterolemia, unspecified; I10 Essential (primary) hypertension; E11.9 Type 2 diabetes mellitus without complications
CPT/HCPCS: 71045; 80048; 83880; 84484; 85025; 85379; 87040; 87635; 93005; 94640; 99285; G2023; U0003

== ENCOUNTER → 2020-02-22 | Outpatient (CLI) | payer MEDICARE, SELFPAY | END | disposition home or self-care (01) | LOC: MTDU 17:37 | PROVIDERS: PCP Student in an Organized Health Care Education/Training Program | DX: Z20.828 Contact with and (suspected) exposure to other viral communicable diseases (principal) | CPT/HCPCS: 87635; 94799; U0003 ==

== ENCOUNTER 2020-04-14 10:14 | Emergency (ER) | payer OTHER, MEDICARE, SELFPAY ==
--- NOTE | 2020-04-14 10:17 | EKG12_ITS ---
Test Reason : CP Blood Pressure : / mmHG Vent. Rate : 077 BPM Atrial Rate : 071 BPM P-R Int : 000 ms QRS Dur : 098 ms QT Int : 362 ms P-R-T Axes : 000 048 037 degrees QTc Int : 409 ms Sinus Rhythm Nonspecific ST abnormality Abnormal ECG Confirmed by ORIANA SIMON, ALEJANDRA ([id number]), avid editor MEGAN ARGUETA ([id number]) on 04/27/2020 9:41:43 A M Referred By: NAVARRO Confirmed By:DAIN GASTELUM MD
--- NOTE | 2020-04-14 10:17 | RAD_ITS ---
STUDY: X-RAY CHEST REASON FOR EXAM: Male, 84 years old. CHEST PAIN TECHNIQUE: Single AP portable view of the chest. COMPARISON: Comparison is made with prior study 12/07/2019. FINDINGS: EKG electrodes are seen. Hyperinflation. The lungs are clear. Azygos lobe. This is a normal variant. There is no demonstrated pleural abnormality. Normal size heart. Normal mediastinum and dianelys. Normal visualized pulmonary arteries. There is atherosclerotic calcification of the aortic arch with tortuosity. There are diffuse degenerative changes of the visualized thoracic spine. Normal visualized ribs, clavicles, and shoulders. There is no demonstrated abnormality of the visualized soft tissue structures of the upper abdomen. RAD/Chest 1 View (Portable) IMPRESSION: Hyperinflation. The lungs are clear. Electronically Signed: Donnie Moreira, at 11:28 EDT , Service support ,
[2020-04-14 10:20] VITALS: BP 178/72; PULSE 83; RESP 16; TEMP 36.4; O2SAT 96; BMI 29.0
[2020-04-14 10:38] VITALS: O2SAT 98
[2020-04-14 10:41] LABS: Absolute Lymphocyte Count 1.08 X10^3/uL (0.83-4.51); Absolute Neutrophil Count 9.6 X10^3/uL (2.0-7.7); Basophil# 0.08 X10^3/uL; Basophil% 0.7 % (0-1); Eosinophil# 0.39 X10^3/uL; Eosinophils% 3.3 % (0-5); Hematocrit 35.7 % (40-54); Hemoglobin 11.9 g/dL (13.0-16.5); Lymphocyte # 1.08 X10^3/ul (4.0); Lymphocyte % 9.2 % (19-41); Mean Corp Hgb Conc 33.3 g/dL (32-36); Mean Corpuscular Hgb 32.3 pg (27.0-32.0); Mean Platelet Vol. 10.1 fl (6.2-12.0); Monocyte# 0.51 X10^3/uL; Monocyte% 4.3 % (0-10); NRBC Flagged by Analyzer 0 % (0-5); Neutrophil # 9.56 X10^3/uL (2.7-7.7); Platelet Count 116 K/mm3 (150-450); RBC Distribution Width CV 15.5 % (11.6-14.6); RBC Distribution Width SD 54.4 fl (35.1-43.9); Red Blood Count 3.68 M/mm3 (4.6-6.2); White Blood Count 11.8 K/mm3 (4.4-11.0)
[2020-04-14] MEDS: Aspirin 81 MG TAB.CHEW 324 MG PO (10:47)
[2020-04-14 11:01] LABS: Anion Gap 6 (5-15); BUN 16 mg/dL (7-18); BUN/Creat Ratio 12.1 RATIO (10-20); Calcium,Total 8.5 mg/dL (8.5-10.1); Chloride 99 mmol/L (98-107); Creatinine, Serum 1.32 mg/dL (0.70-1.30); EST Glomerular Filtration Rate 55 mL/min (>60); Est Glom Filt Rate - Afr Amer 67 mL/min (>60); Estimated Creatinine Clearance 39.64 ml/min; Glucose 291 mg/dL (74-106); Potassium 4.9 mmol/L (3.5-5.1); Sodium Level 131 mmol/L (136-145)
--- NOTE | 2020-04-14 11:11 | ED.VISSUMM ---
- ER Visit Summary Date of Service: 04/14/20 Chief Complaint: Chest pain History of Present Illness: The patient is a 84 M who goes to the [facility]. He has a history of chronic leukemia. He is not sure of the type. He reports it is the good one. Reports that 2 days ago he was out digging up a fence post and had the onset of pain in the left side of his chest. He is left-hand dominant. He reports is continuous sharp pain that is reproduced by movement of his left arm or digging. It 7-10 at worst and 6 out of 10 currently. It is relieved by bending his left arm. He denies any associated nausea, vomiting, diaphoresis, shortness of breath. He denies any other injuries or complaints. Physical Examination: Vitals: Stable. Afebrile. General: Well-nourished and well-developed. Head: Normocephalic atraumatic. Neck: Supple, no lymphadenopathy. No JVD. Nontender. Cardiovascular: Regular rate and rhythm. 2 out of 6 systolic murmur. Respiratory: No respiratory distress. Clear to auscultation bilaterally. Moderate tenderness to palpation just medial to the left greater trochanter that does reproduce his pain. Abdominal: Soft, nontender, nondistended, normal bowel sounds. No guarding, rebound, or peritoneal signs. Back: Nontender. Extremities: Nontender, no edema. Skin: Normal color, no rash. Neurologic: Alert and oriented ?3. Cranial nerves II through XII are intact. Normal strength and sensation. Psych: Normal affect. Test Results: EKG is sinus at 77 with artifact and nonspecific ST changes. Troponin is negative despite 2 days of constant pain. Chem-7 shows a sodium 131, creatinine 1.32, glucose of 291. CBC shows a white count 11.8 with 8170 neutrophils, 9 lymphocytes, and 1.5% immature granulocytes. H&H is 11.9 and 35.7. Platelets are 116. Chest x-ray shows no acute disease. Emergency Department Course and Treatment: Patient refused pain medications. He was given an aspirin. I reviewed the patient's chart. He had a stress test in October that was negative. His pain is very atypical and is reproducible with movement and palpation. I do not feel that any further cardiac evaluation is warranted today. Treatment Plan: Patient will be discharged instructions to use moist heat to the area. He is already on pain medications at home. Follow-up with primary care physician in 3 to 5 days if not improving. Return to the emergency department for any worsening symptoms. Disposition: To home in improved and stable condition. Impression: 1. Musculoskeletal chest pain. This note was generated with [employer] dictation software. It may contain incorrect words, spelling, and punctuation that were not noted in review of the chart prior to signing ED Disposition - Plan for ED Patient: Instructions: ED Strain Chest Wall Referrals: Daniel Camejo, [Primary Care Provider] - 3-5 Days if not improving
[2020-04-14 11:32] VITALS: BP 136/63; PULSE 72; RESP 20; O2SAT 96
[2020-04-14 12:11] VITALS: BP 138/61; PULSE 70; RESP 18; O2SAT 95
== END 2020-04-14 12:12 | disposition home or self-care (01) ==
PROVIDERS: Emergency Provider Emergency Medicine; PCP Student in an Organized Health Care Education/Training Program
DX: R07.89 Other chest pain (principal); I10 Essential (primary) hypertension; Z79.899 Other long term (current) drug therapy
CPT/HCPCS: 71045; 80048; 84484; 85025; 93005; 94760; 99285; A4216

== ENCOUNTER → 2020-06-14 10:40 | Outpatient (CLI) | payer OTHER, MEDICARE, SELFPAY ==
--- NOTE | 2020-06-14 10:47 | CT_ITS ---
STUDY: CT CHEST WITHOUT CONTRAST REASON FOR EXAM: Male, 84 years old. F/U NODULES RADIATION DOSAGE (If Supplied By Facility): CTDIvol = ( 14.67 ) mGy, DLP = ( 494.09 ) mGycm TECHNIQUE: Transaxial imaging was performed without the administration of intravenous contrast material. Multiplanar coronal and sagittal images were reformatted. Individualized dose optimization techniques were used for this CT. COMPARISON: Comparison is made with prior study dated 04/29/2017. FINDINGS: Azygos lobe. Stable linear scarring at the lung bases slightly more prominent at the right lung base. Since prior study, the previously seen bibasilar infiltrates have resolved. There is no demonstrated pleural abnormality. There are calcifications of the coronary arteries. Calcification of the mitral valve annulus. There are multiple small lymph nodes within the mediastinum, which are normal in size and morphology most compatible with reactive lymph hyperplasia. Normal hilar regions. Normal unenhanced pulmonary arteries. There is atherosclerotic calcification of the aortic arch with tortuosity and elongation of the aortic arch and descending thoracic aorta. Normal osseous structures. Small gallstones. CT/Chest without Contrast IMPRESSION: Findings suggest a mild scarring at the lung bases. The previously seen bibasilar infiltrates have resolved. Electronically Signed: Donnie Moreira, at 13:50 EST , Service support ,
== END ==
PROVIDERS: PCP Student in an Organized Health Care Education/Training Program
DX: R91.1 Solitary pulmonary nodule (principal)
CPT/HCPCS: 71250

== ENCOUNTER 2020-12-11 11:22 | Emergency (ER) | payer OTHER, MEDICARE, SELFPAY ==
[2020-12-11 11:24] VITALS: BP 154/74; PULSE 64; RESP 20; TEMP 36.6; O2SAT 97; BMI 28.1
[2020-12-11 11:34] VITALS: O2SAT 93
--- NOTE | 2020-12-11 11:43 | RAD_ITS ---
STUDY: X-RAY CHEST REASON FOR EXAM: Male, 85 years old. Cough TECHNIQUE: Single AP portable view of the chest. COMPARISON: Comparison is made with prior study dated 04/14/2020. FINDINGS: EKG electrodes are seen. Increased markings at the right lung base with blunting of the right costophrenic angle. Early right basilar infiltration. Ruled out. Normal size heart. Normal mediastinum and dianelys. Normal visualized pulmonary arteries. There is atherosclerotic calcification of the aortic arch with tortuosity. There are diffuse degenerative changes of the visualized thoracic spine. Normal visualized ribs, clavicles, and shoulders. There is no demonstrated abnormality of the visualized soft tissue structures of the upper abdomen. RAD/Chest 1 View (Portable) IMPRESSION: Findings suggestive of a focal right basilar infiltrate with blunting of the right costophrenic angle. Electronically Signed: Donnie Moreira MD at 12:55 EDT , Service support ,
--- NOTE | 2020-12-11 11:44 | EX.ED.DYSGE1 ---
HPI History of Present Illness Chief Complaint: Shortness of Breath Informant: patient and spouse/S.O. Narrative Narrative: 85-year-old male tells me he came to the emergency department because he did not get any sleep last night because nothing was working right. He tells me that he could not get his air conditioner to be consistent from room to room. He is a very poor historian. When asked specifically if there was a medical reason for coming to the emergency department and not an HVAC issue he states yes and then does not tell me. He tells me that last week he had a pain in his left inguinal region. He went to an urgent care and he tells me they did a chest x-ray and told me of the start of pneumonia and placed him on the medications he brought in a bag. Those apparently are azithromycin and amoxicillin. I asked him if he was having any respiratory issues or how they got from a pain in his left inguinal region to pneumonia and he says I do not know. His then tells me that he is cough is better than what it was last but is still present and is still bringing up mucus. She tells me that he gets this almost every September and usually ends up being hospitalized for 3 or 4 days. This year however he did not get it in September he got it in November. [facility] Medical History (Updated 12/11/20 @ 13:[address] Presley Washburn, ) BPH (benign prostatic hyperplasia) Chronic leukemia History of gout History of hyperlipidemia History of non anemic vitamin B12 deficiency History of shingles Radiculopathy of leg Spinal stenosis Home Medications B complex with C 20-folic acid 1 mg PO DAILY 04/29/17 [History Last Taken 04/29/17] allopurinol 100 mg PO BID 04/29/17 [History Last Taken 04/29/17] cholecalciferol (vitamin D3) 5,000 unit PO DAILY 04/29/17 [History Last Taken 04/29/17] cyanocobalamin (vitamin B-12) 1,000 mcg IM Q30D 04/29/17 [History Last Taken Unknown] gabapentin 600 mg PO TID 04/29/17 [History Last Taken 04/29/17] gemfibrozil 600 mg PO QHS 04/29/17 [History Last Taken 04/29/17] hydrocodone-acetaminophen 1 tab PO DAILY PRN 10/31/17 [History Last Taken Unknown] ibuprofen 400 mg PO TID 04/29/17 [History Last Taken Unknown] metformin 500 mg PO BID 04/29/17 [History Last Taken 04/29/17] multivitamin 1 ea PO DAILY 04/29/17 [History Last Taken 04/29/17] omeprazole 20 mg PO QHS 04/29/17 [History Last Taken 04/29/17] dextran 70-hypromellose (PF) 1 ea OP PRN PRN 02/18/19 [History Last Taken Unknown] ibrutinib 420 mg PO LUNCH 02/18/19 [History Last Taken Unknown] montelukast 10 mg PO QHS 04/14/20 [History Last Taken Unknown] albuterol sulfate [Ventolin HFA] 2 puff INHALATION Q4H PRN PRN #1 inhaler 12/11/20 [Rx Last Taken Unknown] levofloxacin 750 mg PO DAILY #5 tab 12/11/20 [Rx Last Taken Unknown] Allergy/AdvReac Type Severity Reaction Status Date / Time Gnmjlfl-Yba-Wss Reductase Allergy Pain in Verified 12/11/20 11:26 Inhibitor joints prednisone AdvReac Nausea/Vom/ Verified 12/11/20 11:26 Diarrhea Family History Mother Cancer skin Father Colon cancer Sister Cancer Brother Heart disease Social History Smoking Status: Never smoker ROS ROS ED Constitutional Constitutional ED: Denies chills or weight loss Eyes Eyes: Denies change in vision or diplopia ENT ENT ED: Denies ear pain, rhinorrhea or sore throat Cardiovascular Cardiovascular: Denies chest pain, orthopnea, palpitations or racing heartbeat Respiratory/Chest Respiratory/Chest: Reports cough, dyspnea and sputum; Denies orthopnea Gastrointestinal Gastrointestinal: Denies abdominal pain, diarrhea, nausea or vomiting Genitourinary Genitourinary ED: Denies dysuria, hematuria or urinary frequency Musculoskeletal Musculoskeletal: Denies arthralgias or myalgias Integumentary Denies abscess or rash Neurologic Neurologic: Denies headache(s) or weakness Psychiatric Psychiatric: Denies anxiety, depression, suicidal ideation or suicidal thoughts Endocrine Endocrinology: Denies polydipsia, polyphagia or polyuria Allergic/Immunologic Allergic/Immunologic ED: Denies mouth swelling, tongue swelling or urticaria EXAM Physical Exam Const Vital Signs: 12/11/20 11:24 12/11/20 11:51 12/11/20 12:17 Temperature 98 F Temperature Source Temporal Pulse Rate 64 66 Respiratory Rate 20 H 17 Respiratory Effort Normal Respiratory Depth Normal Respiratory Pattern Normal Normal Blood Pressure 154/74 H Blood Pressure Mean 100 Pulse Ox 97 Oxygen Delivery Method Room Air Positive well nourished and well developed General Appearance ED: well developed HEENT Reports normocephalic, head/scalp atraumatic and moist mucous membranes Eyes PERRL and EOMs intact bilaterally Neck no lymphadenopathy, supple and no JVD Resp normal respiratory effort and clear to auscultation bilaterally Cardio regular rate, regular rhythm and no murmurs GI normal to inspection, nondistended, normoactive bowel sounds and non-tender Palpation: soft Back/Spine no CVA tenderness and normal ROM Extremity normal to inspection General Extremety ED: Negative for edema General Extremity: Negative for edema Neuro oriented x3 and CN's II-XII intact bilaterally Sensorium / Orientation: alert Motor Exam: strength 5/5 throughout Psych mental status grossly normal Mood & Affect: Negative for depressed or tearful Skin no rashes or lesions noted and no wounds MDM MDM MDM Narrative Medical decision making narrative: My interpretation of the chest x-ray is right lower lobe infiltrate. He does not have a fever. His vital signs are normal. His white count is 10.6. I do not believe the patient requires admission. I think we need to change his antibiotics to Levaquin which she is done past. I will also write for albuterol MDI. He reports side effects of prednisone and does not wish to have those. Patient to monitor himself at home return if worsening Lab Data Attestation: I reviewed the patient's lab results. Labs: Laboratory Results - last 24 hr 12/11/20 12/11/20 13:30 13:30 WBC 10.6 RBC 4.19 L Hgb 13.3 Hct 39.8 L MCV 95.0 H MCH 31.7 MCHC 33.4 RDW Std Deviation 54.5 H RDW Coeff of Samreen 15.8 H Plt Count 223 MPV 10.1 Neut % (Auto) Not Reportable Sodium 132 L Potassium 4.6 Chloride 98 Carbon Dioxide 24.0 Anion Gap 10 BUN 13 Creatinine 1.10 Estim Creat Clear Calc 46.74 Est GFR (MDRD) Af Amer 82 Est GFR (MDRD) Non-Af 68 BUN/Creatinine Ratio 11.8 Glucose 168 H Calcium 9.4 Radiography Diagnostic Testing: Radiology Impression Chest X-Ray 12/11/20 11:43 IMPRESSION: Findings suggestive of a focal right basilar infiltrate with blunting of the right costophrenic angle. Electronically Signed: Donnie Moreira MD at 12:55 EDT , Service support , Discharge Plan Triage Chief Complaint: Shortness of Breath ED Provider: Presley Washburn Dx/Rx/DC Orders Clinical Impression: Pneumonia Instructions: ED Pneumonia (Adult) Prescriptions: New levofloxacin 750 mg tablet 750 mg PO DAILY Qty: 5 RF: 0 albuterol sulfate [Ventolin HFA] 1 INHALER inhaler 2 puff inhalation Q4H PRN PRN (Reason: Wheezing) Qty: 1 RF: 0 No Action multivitamin 1 EACH tablet 1 ea PO DAILY RF: 0 metformin 500 MG tablet 500 mg PO BID RF: 0 hydrocodone-acetaminophen 1 TABLET tablet 1 tab PO DAILY PRN (Reason: Pain) RF: 0 allopurinol 100 MG tablet 100 mg PO BID RF: 0 cyanocobalamin (vitamin B-12) 1,000 MCG/ML solution 1,000 mcg IM Q30D RF: 0 ibuprofen 400 MG tablet 400 mg PO TID RF: 0 gabapentin 300 MG capsule 600 mg PO TID RF: 0 omeprazole 20 MG capsule 20 mg PO QHS RF: 0 B complex with C 20-folic acid 1 MG capsule 1 mg PO DAILY RF: 0 cholecalciferol (vitamin D3) 5,000 UNIT capsule 5,000 unit PO DAILY RF: 0 gemfibrozil 600 MG tablet 600 mg PO QHS RF: 0 dextran 70-hypromellose (PF) 1 EACH dropperette 1 ea OP PRN PRN (Reason: Dry Eye) RF: 0 ibrutinib 140 MG capsule 420 mg PO LUNCH RF: 0 montelukast 10 MG tablet 10 mg PO QHS RF: 0 Primary Care Provider: Daniel Camejo Referrals: Daniel Camejo DO [Primary Care Provider] - Disposition Disposition: Home, self care
[2020-12-11] MEDS: Ipratropium/Albuterol Sulfate 3 ML AMPUL.NEB INHALATION (11:48)
[2020-12-11 11:51] VITALS: PULSE 66; RESP 17
[2020-12-11 13:43] LABS: Hematocrit 39.8 % (40-54); Hemoglobin 13.3 g/dL (13.0-16.5); Mean Corp Hgb Conc 33.4 g/dL (32-36); Mean Corpuscular Hgb 31.7 pg (27.0-32.0); Mean Platelet Vol. 10.1 fl (6.2-12.0); POSITIVE COUNT YES; POSITIVE MORPHOLOGY YES; Platelet Count 223 K/mm3 (150-450); RBC Distribution Width CV 15.8 % (11.6-14.6); RBC Distribution Width SD 54.5 fl (35.1-43.9); Red Blood Count 4.19 M/mm3 (4.6-6.2); White Blood Count 10.6 K/mm3 (4.4-11.0)
[2020-12-11 13:44] LABS: Differential Indicated MANUAL DIFF
[2020-12-11 13:53] LABS: Anion Gap 10 (5-15); BUN 13 mg/dL (7-18); BUN/Creat Ratio 11.8 RATIO (10-20); Calcium,Total 9.4 mg/dL (8.5-10.1); Chloride 98 mmol/L (98-107); EST Glomerular Filtration Rate 68 mL/min (>60); Est Glom Filt Rate - Afr Amer 82 mL/min (>60); Estimated Creatinine Clearance 46.74 ml/min; Glucose 168 mg/dL (74-106); Potassium 4.6 mmol/L (3.5-5.1); Sodium Level 132 mmol/L (136-145)
[2020-12-11 14:08] VITALS: BP 136/76; PULSE 73; RESP 18; O2SAT 95
[2020-12-11 14:20] LABS: Eosinophil 1 % (0-5); Lymphocyte 15 % (19-41); Metamyelocyte 1 % (0-1); Monocyte 2 % (0-10); Myelocyte 1 % (0-0); Neutrophil-Band 4 % (0-5); Neutrophil-Segmented 76 % (47-70); Total Cells Counted 100 (MANUAL DIFF)
[2020-12-11 14:21] LABS: Platelet Estimate ADEQUATE (ADEQ); Red Cell Morphology NORM C+C NORMAL (NORM C&C)
[2020-12-11 15:38] LABS: Absolute Lymphocyte Count 1.59 X10^3/uL (0.83-4.51); Absolute Neutrophil Count 8.5 X10^3/uL (2.0-7.7)
[2020-12-12 12:51] LABS: Pathologist Review Reviewed
== END 2020-12-11 14:09 | disposition home or self-care (01) ==
PROVIDERS: Emergency Provider Emergency Medicine; PCP Student in an Organized Health Care Education/Training Program
DX: J18.9 Pneumonia, unspecified organism (principal); C95.10 Chronic leukemia of unspecified cell type not having achieved remission; E78.5 Hyperlipidemia, unspecified; Z79.899 Other long term (current) drug therapy
CPT/HCPCS: 71045; 80048; 85025; 94640; 99283; A4216

== ENCOUNTER 2021-06-17 09:50 | Inpatient (IN) | payer MEDICARE, SELFPAY ==
[2021-06-17] VITALS (17 sets, daily range): BP systolic 100–161; BP diastolic 56–80; PULSE 75–96; RESP 16–28; TEMP 36–37.2; O2SAT 90–97; BMI 26.6; BMI 27.7
--- NOTE | 2021-06-17 10:10 | EKG12_ITS ---
Test Reason : SOB Blood Pressure : / mmHG Vent. Rate : 081 BPM Atrial Rate : 081 BPM P-R Int : 200 ms QRS Dur : 094 ms QT Int : 380 ms P-R-T Axes : 119 025 018 degrees QTc Int : 441 ms Normal sinus rhythm Normal ECG Confirmed by ARY SIMON, JUNE ([id number]), communications editor MEGAN ARGUETA ([id number]) on 06/18/2021 11:25:47 AM Referred By: LASHAY Confirmed By:JUNE MCALLISTER MD
--- NOTE | 2021-06-17 10:10 | RAD_ITS ---
STUDY: X-RAY CHEST REASON FOR EXAM: Male, 85 years old. Worsening shortness of breath TECHNIQUE: Single AP portable view of the chest. COMPARISON: 12/11/2020 FINDINGS: EKG leads overlie the chest. Incidental note again made of a right azygos fissure Lungs are expanded with development of opacification in the right lower lobe suggesting early infiltrate or atelectasis. No demonstrated effusion. Follow-up recommended to ensure resolution. Normal size heart. Normal mediastinum and dianelys. Normal visualized pulmonary arteries. There is atherosclerotic calcification of the aortic arch with tortuosity. There are diffuse degenerative changes of the visualized thoracic spine. Normal visualized ribs, clavicles, and shoulders. There is no demonstrated abnormality of the visualized soft tissue structures of the upper abdomen. RAD/Chest 1 View (Portable) IMPRESSION: Subtle opacification in the right lower lobe likely early infiltrate or atelectasis. Follow-up recommended to ensure resolution Electronically Signed: En Trevino MD at 11:00 EST , Service support ,
--- NOTE | 2021-06-17 10:11 | ED.VIS.DYS ---
HPI History of Present Illness Chief Complaint: Shortness of Breath Detail of Chief Complaint: Shortness of breath Informant: patient Narrative Narrative: Patient presents to the emergency department with complaint of dyspnea that really has gotten worse since yesterday. Patient states that he has been feeling bad for about a week. He is not sure if he has Covid although he is a poor historian and his who brought him in and was not allowed to come back with him. He does complain of a cough that is productive of sputum at times. He feels tight in his chest. He is not on home oxygen. He does have history of high cholesterol as well as gout and history of leukemia. Patient denies recent travel or surgery. Patient has had his Covid vaccine and booster. [facility] Medical History (Updated 06/17/21 @ 12:[address] Alex Tejeda, ) BPH (benign prostatic hyperplasia) Chronic leukemia History of gout History of hyperlipidemia History of non anemic vitamin B12 deficiency History of shingles Radiculopathy of leg Spinal stenosis Home Medications B complex with C 20-folic acid 1 mg PO DAILY 04/29/17 [History Last Taken 04/29/17] allopurinol 100 mg PO BID 04/29/17 [History Last Taken 04/29/17] cholecalciferol (vitamin D3) 5,000 unit PO DAILY 04/29/17 [History Last Taken 04/29/17] cyanocobalamin (vitamin B-12) 1,000 mcg IM Q30D 04/29/17 [History Last Taken Unknown] gabapentin 600 mg PO TID 04/29/17 [History Last Taken 04/29/17] gemfibrozil 600 mg PO QHS 04/29/17 [History Last Taken 04/29/17] hydrocodone-acetaminophen 1 tab PO DAILY PRN 04/29/17 [History Last Taken Unknown] ibuprofen 400 mg PO TID 04/29/17 [History Last Taken Unknown] metformin 500 mg PO BID 04/29/17 [History Last Taken 04/29/17] multivitamin 1 ea PO DAILY 04/29/17 [History Last Taken 04/29/17] omeprazole 20 mg PO QHS 04/29/17 [History Last Taken 04/29/17] dextran 70-hypromellose (PF) 1 ea OP PRN PRN 02/18/19 [History Last Taken Unknown] ibrutinib 420 mg PO LUNCH 02/18/19 [History Last Taken Unknown] montelukast 10 mg PO QHS 04/14/20 [History Last Taken Unknown] albuterol sulfate [Ventolin HFA] 2 puff INHALATION Q4H PRN PRN #1 inhaler 12/11/20 [Rx Last Taken Unknown] levofloxacin 750 mg PO DAILY #5 tab 12/11/20 [Rx Last Taken Unknown] Allergy/AdvReac Type Severity Reaction Status Date / Time Hbngtdp-NJM-WnJ Reductase Allergy Pain in Verified 06/17/21 10:04 Inhibitor joints [Guaekwv-Iwn-Shi Reductase Inhibitor] prednisone AdvReac Nausea/Vom/ Verified 06/17/21 10:04 Diarrhea Family History Mother Cancer skin Father Colon cancer Sister Cancer Brother Heart disease Social History Smoking Status: Never smoker ROS ROS ED Constitutional Constitutional ED: Reports systems reviewed and no addt'l complaints, except as documented; Denies body ache(s), change in weight or chills Eyes Eyes: Denies acute decrease in peripheral vision, change in vision, double vision or loss of vision ENT ENT ED: Reports none; Denies ear pain, lip swelling, loss taste/smell, neck pain, otalgia or sore throat Cardiovascular Cardiovascular: Reports none; Denies abdominal pain, chest pain with activity, leg edema, lightheadedness, palpitations, rapid heart rate or syncope Respiratory/Chest Respiratory/Chest: Reports none, cough, dyspnea and sputum; Denies change in mental status, dry cough, hemoptysis, shortness of breath at rest or shortness of breath with exertion Gastrointestinal Gastrointestinal: Reports none; Denies abdominal pain, change in stool character, diarrhea, hematemesis, hematochezia, melena, rectal bleeding or vomiting Genitourinary Genitourinary ED: Reports none; Denies abdominal discomfort, anuria, dysuria, genital pain or polyuria Musculoskeletal Musculoskeletal: Reports none; Denies arthralgias, back pain, difficulty walking, extremity pain, muscle weakness or myalgias Integumentary Reports none; Denies abscess or rash Neurologic Neurologic: Reports none; Denies abnormal gait, confusion, focal weakness, frequent falls, headache(s), loss of vision, numbness, paresthesias, radicular pain, vertigo or weakness Psychiatric Psychiatric: Reports systems reviewed and no addt'l complaints, except as documented and none; Denies behavioral changes, confusion, difficulty concentrating, hallucinations, suicidal ideation, tactile hallucinations or visual hallucinations Endocrine Endocrinology: Denies none, cold intolerance, excessive sweating, fatigue or heat intolerance Hematologic/Lymphatic Hematologic/Lymphatic: Reports none; Denies anemia, easy bleeding or easy bruising Allergic/Immunologic Allergic/Immunologic ED: Denies as per HPI, none, lip swelling, mouth swelling, throat swelling, tongue swelling or hives EXAM Physical Exam Const Vital Signs: 06/17/21 09:52 06/17/21 10:02 06/17/21 10:04 Temperature 98.8 F Temperature Source Temporal Pulse Rate 80 75 Respiratory Rate 26 H 28 H Respiratory Effort Short of Breath Respiratory Depth Shallow Respiratory Pattern Tachypnea Blood Pressure 160/68 H 161/66 H Blood Pressure Mean 98 97 Pulse Ox 91 93 Oxygen Delivery Method Room Air Nasal Cannula Nasal Cannula Oxygen Flow Rate (L/min) 2 2 06/17/21 10:41 06/17/21 11:21 06/17/21 11:50 Temperature 98.9 F Temperature Source Oral Pulse Rate 86 96 96 Respiratory Rate 21 H 23 H 24 H Respiratory Effort Respiratory Depth Respiratory Pattern Tachypnea Blood Pressure 121/58 H 127/63 H Blood Pressure Mean 79 84 Pulse Ox 92 95 Oxygen Delivery Method Nasal Cannula Nasal Cannula Oxygen Flow Rate (L/min) 2 Positive well nourished and well developed General Appearance ED: well developed and NAD HEENT Reports TM's clear and moist mucous membranes normocephalic and atraumatic; Negative for trauma or tenderness Tympanic Membrane ED: Yes TM's clear Eyes PERRL and EOMs intact bilaterally General Eye ED: Negative for pale conjunctiva or scleral icterus Neck no lymphadenopathy, supple and no JVD General: Negative for tenderness Chest Wall inspection of chest normal and palpation of chest normal Chest: Negative for tenderness Resp normal respiratory effort Resp Narrative: Mild tachypnea, no accessory muscle use or retractions Effort and Inspection: Negative for respiratory distress or pain with movement Auscultation: rhonchi and wheezes; Negative for diminished lung sounds Cardio regular rate, regular rhythm, S1 normal heart sound, S2 normal heart sound and no murmurs Peripheral Pulses: pulses 2+ throughout GI normal to inspection, nondistended, normoactive bowel sounds, soft to palpation, non-tender, non-distended and no masses Back/Spine no CVA tenderness and no thoracic nor lumbar tenderness Extremity normal to inspection General Extremety ED: Negative for edema General Extremity: Negative for edema Neuro oriented x3, CN's II-XII intact bilaterally, no sensory deficits noted and gait normal Sensorium / Orientation: awake, alert, oriented to person, oriented to place and oriented to time Motor Exam: strength 5/5 throughout and strength abnormal Psych mental status grossly normal Skin no rashes or lesions noted and no wounds MDM MDM MDM Narrative Medical decision making narrative: IV line established on arrival. Patient was given albuterol inhaler. Patient was hypoxic with an O2 sat of 87%. He required DuoNeb aerosol as his dyspnea worsened. CTA was negative for PE but did show bilateral infiltrates consistent with Covid. Case will be discussed with hospitalist evaluate patient for admission. Patient was started on dexamethasone. Lab Data Attestation: I reviewed the patient's lab results. Labs: Laboratory Results - last 24 hr 06/17/21 06/17/21 06/17/21 10:15 10:15 10:15 WBC 6.2 RBC 3.79 L Hgb 11.8 L Hct 34.9 L MCV 92.1 MCH 31.1 MCHC 33.8 RDW Std Deviation 53.0 H RDW Coeff of Samreen 15.6 H Plt Count 87 L MPV 10.1 Immature Gran % (Auto) 3.400 H Neut % (Auto) 76.9 H Lymph % (Auto) 8.9 L Elmore % (Auto) 9.2 Eos % (Auto) 0.8 Baso % (Auto) 0.8 Absolute Neuts (auto) 4.7 Absolute Lymphs (auto) 0.55 L Nucleated RBC % 0 Platelet Estimate MOD DEC D-Dimer Quant (PE/DVT) 1.59 H* Sodium 131 L Potassium 3.9 Chloride 97 L Carbon Dioxide 24.0 Anion Gap 10 BUN 14 Creatinine 1.13 Estim Creat Clear Calc 45.50 Est GFR (MDRD) Af Amer 79 Est GFR (MDRD) Non-Af 66 BUN/Creatinine Ratio 12.4 Glucose 170 H Lactic Acid Calcium 8.6 Troponin I High Sens 9 06/17/21 10:15 WBC RBC Hgb Hct MCV MCH MCHC RDW Std Deviation RDW Coeff of Samreen Plt Count MPV Immature Gran % (Auto) Neut % (Auto) Lymph % (Auto) Elmore % (Auto) Eos % (Auto) Baso % (Auto) Absolute Neuts (auto) Absolute Lymphs (auto) Nucleated RBC % Platelet Estimate D-Dimer Quant (PE/DVT) Sodium Potassium Chloride Carbon Dioxide Anion Gap BUN Creatinine Estim Creat Clear Calc Est GFR (MDRD) Af Amer Est GFR (MDRD) Non-Af BUN/Creatinine Ratio Glucose Lactic Acid 1.0 Calcium Troponin I High Sens Radiography Diagnostic Testing: Clinical Impression(s) from Imaging Studies Chest X-Ray 06/17/21 10:10 IMPRESSION: Subtle opacification in the right lower lobe likely early infiltrate or atelectasis. Follow-up recommended to ensure resolution Electronically Signed: En Trevino MD at 11:00 EST , Service support , Chest CTA 06/17/21 10:36 IMPRESSION: No demonstrated PE, or thoracic aortic aneurysm or dissection Diffuse interstitial and airspace opacifications in the inferior halves of both lung cruz with small effusions. Follow-up recommended to assure resolution. Chronic bronchitis Calcified coronary vessels Degenerative bony changes Electronically Signed: En Trevino MD at 11:45 EST , Service support , 1 view chest x-ray obtained interpreted by myself as right lower lobe infiltrate. Radiology in agreement. EKG Initial EKG: Attestation: I personally reviewed and interpreted this EKG as follows: Comments: Sinus rhythm with a ventricular rate of 81 bpm with no acute ST segment changes Discharge Plan Triage Chief Complaint: Shortness of Breath ED Provider: Alex Tejeda Dx/Rx/DC Orders Clinical Impression: COVID-19, Hypoxemia, Reactive airway disease Prescriptions: No Action multivitamin 1 EACH tablet 1 ea PO DAILY RF: 0 metformin 500 MG tablet 500 mg PO BID RF: 0 hydrocodone-acetaminophen 1 TABLET tablet 1 tab PO DAILY PRN (Reason: Pain) RF: 0 allopurinol 100 MG tablet 100 mg PO BID RF: 0 cyanocobalamin (vitamin B-12) 1,000 MCG/ML solution 1,000 mcg IM Q30D RF: 0 ibuprofen 400 MG tablet 400 mg PO TID RF: 0 gabapentin 300 MG capsule 600 mg PO TID RF: 0 omeprazole 20 MG capsule 20 mg PO QHS RF: 0 B complex with C 20-folic acid 1 MG capsule 1 mg PO DAILY RF: 0 cholecalciferol (vitamin D3) 5,000 UNIT capsule 5,000 unit PO DAILY RF: 0 gemfibrozil 600 MG tablet 600 mg PO QHS RF: 0 dextran 70-hypromellose (PF) 1 EACH dropperette 1 ea OP PRN PRN (Reason: Dry Eye) RF: 0 ibrutinib 140 MG capsule 420 mg PO LUNCH RF: 0 montelukast 10 MG tablet 10 mg PO QHS RF: 0 levofloxacin 750 mg tablet 750 mg PO DAILY Qty: 5 RF: 0 albuterol sulfate [Ventolin HFA] 1 INHALER inhaler 2 puff inhalation Q4H PRN PRN (Reason: Wheezing) Qty: 1 RF: 0 Primary Care Provider: Daniel Camejo Referrals: Daniel Camejo DO [Primary Care Provider] - Disposition Disposition: Acute Care Hospital [facility]
[2021-06-17 10:25] LABS: Absolute Lymphocyte Count 0.55 X10^3/uL (0.83-4.51); Absolute Neutrophil Count 4.7 X10^3/uL (2.0-7.7); Basophil# 0.05 X10^3/uL; Basophil% 0.8 % (0-1); Eosinophil# 0.05 X10^3/uL; Eosinophils% 0.8 % (0-5); Hematocrit 34.9 % (40-54); Hemoglobin 11.8 g/dL (13.0-16.5); Lymphocyte # 0.55 X10^3/ul (0.83-4.51); Lymphocyte % 8.9 % (19-41); Mean Corp Hgb Conc 33.8 g/dL (32-36); Mean Corpuscular Hgb 31.1 pg (27.0-32.0); Mean Corpuscular Volume 92.1 fL (80-94); Mean Platelet Vol. 10.1 fl (6.2-12.0); Monocyte# 0.57 X10^3/uL; Monocyte% 9.2 % (0-10); NRBC Flagged by Analyzer 0 % (0-5); Neutrophil # 4.74 X10^3/uL (2.7-7.7); Neutrophil % 76.9 % (47-70); POSITIVE COUNT YES; POSITIVE DIFFERENTIAL YES; Platelet Count 87 K/mm3 (150-450); RBC Distribution Width CV 15.6 % (11.6-14.6); Red Blood Count 3.79 M/mm3 (4.6-6.2); White Blood Count 6.2 K/mm3 (4.4-11.0)
[2021-06-17 10:26] LABS: Differential Indicated SCAN CRITERIA MET
--- NOTE | 2021-06-17 10:31 | ED.RN ---
called to clarify covid testing. pt has + covid test at [facility] friday
[2021-06-17 10:34] LABS: D-Dimer Quantitative (DVT/PE) 1.59 FEU/ug/m (0.27-0.49)
--- NOTE | 2021-06-17 10:36 | CT_ITS ---
STUDY: CTA CHEST REASON FOR EXAM: Male, 85 years old. Elevated d-dimer, chest pain RADIATION DOSAGE (If Supplied By Facility): CTDIvol = ( 10.86 ) mGy, DLP = ( 400.46 ) mGycm TECHNIQUE: The examination was performed with the intravenous administration of IV 100mL Isovue-370. Post-processing of the angiographic images was performed, with multiplanar reformation and 3D reconstruction. Individualized dose optimization techniques were used for this CT. COMPARISON: 06/14/2020 FINDINGS: Normal enhancement of the main pulmonary artery and right and left pulmonary arteries. Normal enhancement of the bilateral peripheral pulmonary arteries. There is no demonstrated pulmonary embolism. There is atherosclerotic calcification of the aortic arch with tortuosity. There is no demonstrated aortic dissection. Normal heart and pericardium. There are calcifications of the coronary arteries. Normal mediastinum. Normal hilar regions. There is peribronchial thickening. The lungs are well expanded. Incidental note is made of an azygos fissure, there are scattered interstitial and airspace opacifications throughout both lower lung cruz with small pleural effusions. This pattern of opacification likely represents Covid pneumonia. Normal chest wall structures. There are degenerative changes of thoracic spine. Normal visualized upper abdomen. CT/CTA Chest W/WO Contrast IMPRESSION: No demonstrated PE, or thoracic aortic aneurysm or dissection Diffuse interstitial and airspace opacifications in the inferior halves of both lung cruz with small effusions. Follow-up recommended to assure resolution. Chronic bronchitis Calcified coronary vessels Degenerative bony changes Electronically Signed: En Trevino MD at 11:45 EST , Service support ,
[2021-06-17] MEDS: 0.9% Normal Saline 1,000 ML 150 ML IV (10:39)
[2021-06-17 10:41] LABS: Anion Gap 10 (5-15); BUN 14 mg/dL (7-18); BUN/Creat Ratio 12.4 RATIO (10-20); Calcium,Total 8.6 mg/dL (8.5-10.1); Chloride 97 mmol/L (98-107); Creatinine, Serum 1.13 mg/dL (0.70-1.30); EST Glomerular Filtration Rate 66 mL/min (>60); Est Glom Filt Rate - Afr Amer 79 mL/min (>60); Glucose 170 mg/dL (74-106); Potassium 3.9 mmol/L (3.5-5.1); Sodium Level 131 mmol/L (136-145); Troponin-I HS 9 pg/mL (3.0-78.0)
[2021-06-17] MEDS: dexAMETHasone 4 MG Tablet 6 MG PO (10:41)
--- NOTE | 2021-06-17 11:10 | CPS ---
Pt. refused MDI spacer
[2021-06-17] MEDS: Ipratropium/Albuterol Sulfate 3 ML AMPUL.NEB INHALATION (11:21)
[2021-06-17 11:29] LABS: Platelet Estimate MOD DEC (ADEQ)
--- NOTE | 2021-06-17 12:46 | HP.PCM.HOS_ITS ---
HPI - General General Date of Admission: 06/17/21 Date of Service: 06/17/21 Chief Complaint: Shortness of breath HPI Narrative ELENA GANDARA, is a 85 M with past medical history significant for CLL currently on ibrutinib, who is fully vaccinated including receiving the booster in March 2021 presented with shortness of breath. Patient symptoms started on 06/14/2021 and tested positive for Covid on 06/15/2021. Presented to the emergency department with increasing shortness of breath as well as wheezing. Patient also did complain of decreased appetite as well as increasing fatigue. CTA of the chest obtained as a result of elevated D-dimer demonstrated diffuse interstitial and airspace opacification in the inferior half of both lungs with small effusions. Patient was admitted to regular nursing floor after he was placed on supplemental oxygen. [facility] Medical History BPH (benign prostatic hyperplasia) Chronic leukemia History of gout History of hyperlipidemia History of non anemic vitamin B12 deficiency History of shingles Radiculopathy of leg Spinal stenosis Home Medications allopurinol 100 mg PO BID 04/29/17 [History Last Taken 04/29/17] cholecalciferol (vitamin D3) 5,000 unit PO DAILY 04/29/17 [History Last Taken 04/29/17] cyanocobalamin (vitamin B-12) 1,000 mcg IM Q30D 04/29/17 [History Last Taken Unknown] gabapentin 300 mg PO TID 04/29/17 [History Last Taken 04/29/17] gemfibrozil 600 mg PO QHS 04/29/17 [History Last Taken 04/29/17] metformin 1,000 mg PO BID 04/29/17 [History Last Taken 04/29/17] omeprazole 20 mg PO QHS 04/29/17 [History Last Taken 04/29/17] dextran 70-hypromellose (PF) 1 ea OP PRN PRN 02/18/19 [History Last Taken Unknown] ibrutinib 420 mg PO LUNCH 02/18/19 [History Last Taken Unknown] montelukast 10 mg PO QHS 04/14/20 [History Last Taken Unknown] albuterol sulfate [Ventolin HFA] 2 puff INHALATION Q4H PRN PRN #1 inhaler 12/11/20 [Rx Last Taken Unknown] B complex with C 20-folic acid [Renal Caps] 1 cap PO DAILY 06/17/21 [History Last Taken Unknown] B complex-vitamin C-folic acid [Renal Multivit Formula Forte] 1 tab PO DAILY 06/17/21 [History Last Taken Unknown] cyclosporine [Restasis] 1 drp EACH EYE Q12H 06/17/21 [History Last Taken Unknown] duloxetine 60 mg PO DAILY 06/17/21 [History Last Taken Unknown] hydroxyzine HCl 25 mg PO TID PRN 06/17/21 [History Last Taken Unknown] multivitamin 1 tab PO DAILY 06/17/21 [History Last Taken Unknown] oxycodone-acetaminophen 1 tab PO BID PRN 06/17/21 [History Last Taken Unknown] terazosin 1 mg PO DAILY 06/17/21 [History Last Taken Unknown] Allergy/AdvReac Type Severity Reaction Status Date / Time Qdrtndt-MHH-JrK Reductase Allergy Pain in Verified 06/17/21 10:04 Inhibitor joints [Lqfxbci-Cgj-Blw Reductase Inhibitor] prednisone AdvReac Nausea/Vom/ Verified 06/17/21 10:04 Diarrhea Family History Mother Cancer skin Father Colon cancer Sister Cancer Brother Heart disease Social History Smoking Status: Never smoker ROS ROS Narrative GENERAL: anorexia HEENT: denies headache, sinus congestion RESPIRATORY: cough, shortness of breath, CARDIAC: denies chest pain, palpitations, GASTROINTESTINAL: denies abdominal pain, GENITOURINARY: denies dysuria, urgency, EXTREMITY: denies swelling MUSCULOSKELETAL: denies current joint pain NEUROLOGIC: denies focal numbness, HEMATOLOGIC: denies easy bruising INTEGUMENT: denies rashes PSYCHIATRIC: denies suicidal or homicidal ideation Vital Signs Vital Signs Vital Signs: 06/17/21 09:52 06/17/21 10:02 06/17/21 10:04 Temperature 98.8 F Temperature Source Temporal Pulse Rate 80 75 Respiratory Rate 26 H 28 H Respiratory Effort Short of Breath Respiratory Depth Shallow Respiratory Pattern Tachypnea Blood Pressure 160/68 H 161/66 H Blood Pressure Mean 98 97 Pulse Ox 91 93 Oxygen Delivery Method Room Air Nasal Cannula Nasal Cannula Oxygen Flow Rate (L/min) 2 2 06/17/21 10:41 06/17/21 11:21 06/17/21 11:50 Temperature 98.9 F Temperature Source Oral Pulse Rate 86 96 96 Respiratory Rate 21 H 23 H 24 H Respiratory Effort Respiratory Depth Respiratory Pattern Tachypnea Blood Pressure 121/58 H 127/63 H Blood Pressure Mean 79 84 Pulse Ox 92 95 Oxygen Delivery Method Nasal Cannula Nasal Cannula Oxygen Flow Rate (L/min) 2 06/17/21 12:14 06/17/21 12:22 Temperature 96.8 F L Temperature Source Oral Pulse Rate 96 90 Respiratory Rate 16 22 H Respiratory Effort Respiratory Depth Respiratory Pattern Blood Pressure 100/80 119/56 L Blood Pressure Mean 86 77 Pulse Ox 97 95 Oxygen Delivery Method Room Air Nasal Cannula Oxygen Flow Rate (L/min) Weight Weight: 77.111 kg Body Mass Index (BMI) 26.6 Physical Exam Narrative GENERAL: cooperative HEENT: Atraumatic; EYES; Anicteric, Normal Conjunctiva NECK; supple, normal thyroid, RESPIRATORY: Diminished to auscultation CARDIOVASCULAR: Regular S1 S2, GI: soft, normoactive bowel sounds, : No Renal angle tenderness; EXTREMITIES: No edema, no clubbing, MUSCULOSKELETAL: no muscle waisting NEURO: Awake; no lateralizing signs. SKIN: No Rash PSYCH; Flat affect Results Lab / Micro Data Result Diagrams: 06/17/21 10:15 06/17/21 10:15 Labs: Laboratory Results - last 24 hr 06/17/21 10:15: WBC 6.2, RBC 3.79 L, Hgb 11.8 L, Hct 34.9 L, MCV 92.1, MCH 31.1, MCHC 33.8, RDW Std Deviation 53.0 H, RDW Coeff of Samreen 15.6 H, Plt Count 87 L, MPV 10.1, Immature Gran % (Auto) 3.400 H, Neut % (Auto) 76.9 H, Lymph % (Auto) 8.9 L, [place] % (Auto) 9.2, Eos % (Auto) 0.8, Baso % (Auto) 0.8, Absolute Neuts (auto) 4.7, Absolute Lymphs (auto) 0.55 L, Nucleated RBC % 0, Platelet Estimate MOD DEC 06/17/21 10:15: D-Dimer Quant (PE/DVT) 1.59 H* 06/17/21 10:15: Sodium 131 L, Potassium 3.9, Chloride 97 L, Carbon Dioxide 24.0, Anion Gap 10, BUN 14, Creatinine 1.13, Estim Creat Clear Calc 45.50, Est GFR (MDRD) Af Amer 79, Est GFR (MDRD) Non-Af 66, BUN/Creatinine Ratio 12.4, Glucose 170 H, Calcium 8.6, Troponin I High Sens 9 06/17/21 10:15: Lactic Acid 1.0 Radiology Impression Chest X-Ray 06/17/21 10:10 IMPRESSION: Subtle opacification in the right lower lobe likely early infiltrate or atelectasis. Follow-up recommended to ensure resolution Electronically Signed: En Trevino MD at 11:00 EST , Service support , Chest CTA 06/17/21 10:36 IMPRESSION: No demonstrated PE, or thoracic aortic aneurysm or dissection Diffuse interstitial and airspace opacifications in the inferior halves of both lung cruz with small effusions. Follow-up recommended to assure resolution. Chronic bronchitis Calcified coronary vessels Degenerative bony changes Electronically Signed: En Trevino MD at 11:45 EST , Service support , Assessment & Plan Assessment/Plan (1) COVID-19: (2) Hypoxemia: PLAN: Patient is an 85-year-old gentleman presented with shortness of breath 1. Acute hypoxic respiratory failure ?Patient admitted to regular nursing floor started on Decadron as well as remd esivir in addition to supplemental oxygen. 2. CLL ?Patient is ibrutinib recommended continue 3. Diabetes mellitus type II -patient's oral hypoglycemics held. Placed on long acting insulin, Accu-Cheks a.c. and at bedtime and covered with sliding scale insulin 4. GERD ?Patient is on PPI did continue 5. Hypertension - Blood pressure controlled, home medications continued with dose adjustment as needed 6. Dyslipidemia ?Patient is on gemfibrozil this was held on admission 7. Chronic pain syndrome ?Patient is on gabapentin duloxetine as well as oxycodone/acetaminophen did continue with home regimen 8. Gout ?On allopurinol did continue 9. 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 Requested for urine electrolytes and serum osmolality 10. DVT prophylaxis ?Lovenox 40 mg SC twice daily Advance planning; did discuss with the patient and family regarding advanced directives as well as CODE STATUS. Did explain the various scenarios involved ( FULL CODE, DNR CCA, DNR CCA with no intubation, and DNR CC and what each meant) patient elected to full code with CPR and intubation if needed. Order was placed. Time spent on discussion 18 minutes. Charges/Coding Visit Charges Inpatient E&M: 70520 Init Hosp L3 Procedures Hospitalists Procedures: 32534 Advncd Care Plan 30 Min
[2021-06-17] MEDS: Enoxaparin 40 MG/0.4 ML Syringe SC ×2 (15:31→21:30)
[2021-06-17] MEDS: Cholecalciferol (VIT D3) 25 MCG TABLET (1,000 UNITS) 125 MCG PO (15:32)
[2021-06-17] MEDS: Gabapentin 300 MG Capsule PO ×3 (15:32→21:30)
[2021-06-17] MEDS: DULoxetine Hcl 60 MG Capsule PO (15:32)
[2021-06-17] MEDS: Folic Acid/Vitamin B Comp W-C 1 Capsule 1 CAP PO (15:32)
[2021-06-17] MEDS: Allopurinol 100 MG Tablet PO ×2 (15:32→21:30)
[2021-06-17] MEDS: Multivitamins,Therapeutic Tablet 1 TABLET PO (15:32)
--- NOTE | 2021-06-17 16:01 | NURSING ---
While ambulating to bathroom
--- NOTE | 2021-06-17 16:07 | NURSING ---
Pt's , Ebony called with update. Pt is unsure of dates of his COVID vaccines & booster. aware & is going to look for paperwork & call back if she finds the info.
--- NOTE | 2021-06-17 16:15 | NURSING ---
Pt called back in with vaccine dates
--- NOTE | 2021-06-17 16:18 | NURSING ---
Pt received COVID vaccines on Jul 27 & Aug 17, 2020 & received COVID booster 03/19/21 - per
[2021-06-17] MEDS: Insulin Lispro 100 UNIT/ML INSULN.PEN SC ×2 (16:41→21:28)
[2021-06-17 16:51] LABS: Bedside Glucose 272 mg/dL (70-110)
--- NOTE | 2021-06-17 17:09 | NURSING ---
DR CHRISTENSEN MADE AWARE OF PT WITH RHONCHI/WHEEZES, MOIST COUGH. RT NOTIFIED FOR AEROSOL TX.
[2021-06-17] MEDS: Albuterol 2.5 MG/3 ML VIAL.NEB. INHALATION (17:12)
[2021-06-17] MEDS: 0.9% Saline Lock 10 ML Syringe IV (17:21)
[2021-06-17] MEDS: Furosemide 100 MG/10 ML Vial 60 MG IV (17:21)
[2021-06-17] MEDS: IBRUTINIB 140 MG CAPSULE 420 MG PO (17:22)
[2021-06-17] MEDS: Pantoprazole Sodium 20 MG Tablet PO (21:30)
[2021-06-17] MEDS: Montelukast 10 MG Tablet PO (21:31)
[2021-06-17 21:55] LABS: Bedside Glucose 378 mg/dL (70-110)
[2021-06-18] VITALS (7 sets, daily range): BP systolic 106–151; BP diastolic 57–85; PULSE 65–71; RESP 16–24; TEMP 36.3–36.7; O2SAT 95–97
[2021-06-18 06:51] LABS: Absolute Lymphocyte Count 0.59 X10^3/uL (0.83-4.51); Absolute Neutrophil Count 5.7 X10^3/uL (2.0-7.7); Basophil# 0.04 X10^3/uL; Basophil% 0.6 % (0-1); Hematocrit 33.3 % (40-54); Hemoglobin 11.8 g/dL (13.0-16.5); Lymphocyte # 0.59 X10^3/ul (0.83-4.51); Lymphocyte % 8.5 % (19-41); Mean Corp Hgb Conc 35.4 g/dL (32-36); Mean Corpuscular Hgb 31.9 pg (27.0-32.0); Mean Platelet Vol. 10.7 fl (6.2-12.0); Monocyte# 0.37 X10^3/uL; Monocyte% 5.4 % (0-10); NRBC Flagged by Analyzer 0 % (0-5); Neutrophil # 5.65 X10^3/uL (2.7-7.7); Neutrophil % 81.7 % (47-70); POSITIVE COUNT YES; POSITIVE DIFFERENTIAL YES; Platelet Count 98 K/mm3 (150-450); RBC Distribution Width CV 15.4 % (11.6-14.6); White Blood Count 6.9 K/mm3 (4.4-11.0)
[2021-06-18] MEDS: Insulin Lispro 100 UNIT/ML INSULN.PEN SC ×4 (06:52→22:38)
[2021-06-18 07:10] LABS: ALB/GLOB Ratio 0.7 RATIO (0.9-2.4); AST(SGOT) 26 U/L (15-37); Alanine Aminotransfer ALT/SGPT 19 U/L (16-61); Albumin, Serum 2.6 g/dL (3.2-5.0); Alkaline Phosphatase 125 U/L (45-117); Anion Gap 11 (5-15); BUN 18 mg/dL (7-18); BUN/Creat Ratio 14.8 RATIO (10-20); Calcium,Total 8.2 mg/dL (8.5-10.1); Chloride 98 mmol/L (98-107); Creatinine, Serum 1.22 mg/dL (0.70-1.30); EST Glomerular Filtration Rate 60 mL/min (>60); Est Glom Filt Rate - Afr Amer 73 mL/min (>60); Estimated Creatinine Clearance 42.14 ml/min; Globulin 3.6 g/dL (2.2-4.2); Glucose 155 mg/dL (74-106); Magnesium 1.4 mg/dL (1.6-2.6); Potassium 3.9 mmol/L (3.5-5.1); Protein, Total 6.2 g/dL (6.4-8.2); Sodium Level 132 mmol/L (136-145)
[2021-06-18 07:18] LABS: Differential Indicated SCAN CRITERIA MET
--- NOTE | 2021-06-18 10:24 | PCM.CONS.GEN ---
HPI Consult Data Date of Consult: 06/18/21 HPI Narrative HPI Narrative: ELENA GANDARA, is a 85 M who presents generalized malaise and chest congestion. Patient was found to be COVID-19 positive prior to coming to the hospital on 15 June. Patient does have underlying CLL on a biological agent. Patient is currently on 2 L nasal cannula. Patient started on low-dose dexamethasone as well as remdesivir and DVT prophylaxis. Chest film and CT scan of the chest I personally reviewed. Chest x-ray shows a patchy right base infiltrate. Patient has been vaccinated as well as booster of COVID-19 vaccination. [facility], [facility] Medical History (Updated 06/17/21 @ 13:51 by Ayana Ulloa) Ankle fracture, left BPH (benign prostatic hyperplasia) Bronchitis Chronic leukemia Diabetes GERD (gastroesophageal reflux disease) History of gout History of hyperlipidemia History of non anemic vitamin B12 deficiency History of shingles Radiculopathy of leg Spinal stenosis Home Medications allopurinol 100 mg PO BID 04/29/17 [History Last Taken 06/16/21] cholecalciferol (vitamin D3) 5,000 unit PO DAILY 04/29/17 [History Last Taken 04/29/17] cyanocobalamin (vitamin B-12) 1,000 mcg IM Q30D 04/29/17 [History Last Taken Unknown] gabapentin 300 mg PO TID 04/29/17 [History Last Taken 04/29/17] gemfibrozil 600 mg PO QHS 04/29/17 [History Last Taken 04/29/17] metformin 1,000 mg PO BID 04/29/17 [History Last Taken 04/29/17] omeprazole 20 mg PO QHS 04/29/17 [History Last Taken 04/29/17] ibrutinib 420 mg PO LUNCH 02/18/19 [History Last Taken 06/16/21] montelukast 10 mg PO QHS 04/14/20 [History Last Taken Unknown] albuterol sulfate [Ventolin HFA] 2 puff INHALATION Q4H PRN PRN #1 inhaler 12/11/20 [Rx Last Taken Unknown] B complex with C 20-folic acid [Renal Caps] 1 cap PO DAILY 06/17/21 [History Last Taken Unknown] B complex-vitamin C-folic acid [Renal Multivit Formula Forte] 1 tab PO DAILY 06/17/21 [History Last Taken Unknown] alogliptin [Nesina] 12.5 mg PO DAILY 06/17/21 [History Last Taken 06/16/21] cyclosporine [Restasis] 1 drp EACH EYE Q12H 06/17/21 [History Last Taken Unknown] duloxetine 60 mg PO DAILY 06/17/21 [History Last Taken Unknown] hydroxyzine HCl 25 mg PO TID PRN 06/17/21 [History Last Taken Unknown] multivitamin 1 tab PO DAILY 06/17/21 [History Last Taken Unknown] oxycodone-acetaminophen 1 tab PO BID PRN 06/17/21 [History Last Taken Unknown] terazosin 1 mg PO DAILY 06/17/21 [History Last Taken Unknown] Allergy/AdvReac Type Severity Reaction Status Date / Time Hcinjwm-KKF-HlI Reductase Allergy Pain in Verified 06/17/21 10:04 Inhibitor joints [Yqifuun-Dgs-Lga Reductase Inhibitor] prednisone AdvReac Nausea/Vom/ Verified 06/17/21 10:04 Diarrhea Family History Mother Cancer skin Father Colon cancer Sister Cancer Brother Heart disease Social History Smoking Status: Never smoker Lab / Micro Data Result Diagrams: 06/18/21 05:26 06/18/21 05:26 Labs: Laboratory Results - last 24 hr 06/17/21 10:15: WBC 6.2, RBC 3.79 L, Hgb 11.8 L, Hct 34.9 L, MCV 92.1, MCH 31.1, MCHC 33.8, RDW Std Deviation 53.0 H, RDW Coeff of Samreen 15.6 H, Plt Count 87 L, MPV 10.1, Immature Gran % (Auto) 3.400 H, Neut % (Auto) 76.9 H, Lymph % (Auto) 8.9 L, [place] % (Auto) 9.2, Eos % (Auto) 0.8, Baso % (Auto) 0.8, Absolute Neuts (auto) 4.7, Absolute Lymphs (auto) 0.55 L, Nucleated RBC % 0, Platelet Estimate MOD DEC 06/17/21 10:15: D-Dimer Quant (PE/DVT) 1.59 H* 06/17/21 10:15: Sodium 131 L, Potassium 3.9, Chloride 97 L, Carbon Dioxide 24.0, Anion Gap 10, BUN 14, Creatinine 1.13, Estim Creat Clear Calc 45.50, Est GFR (MDRD) Af Amer 79, Est GFR (MDRD) Non-Af 66, BUN/Creatinine Ratio 12.4, Glucose 170 H, Calcium 8.6, Troponin I High Sens 9 06/17/21 10:15: Lactic Acid 1.0 06/17/21 16:34: POC Glucose 272 H 06/17/21 21:26: POC Glucose 378 H 06/18/21 05:26: WBC 6.9, RBC 3.70 L, Hgb 11.8 L, Hct 33.3 L, MCV 90.0, MCH 31.9, MCHC 35.4, RDW Std Deviation 50.0 H, RDW Coeff of Samreen 15.4 H, Plt Count 98 L, MPV 10.7, Immature Gran % (Auto) 3.800 H, Neut % (Auto) 81.7 H, Lymph % (Auto) 8.5 L, [place] % (Auto) 5.4, Eos % (Auto) 0.0, Baso % (Auto) 0.6, Absolute Neuts (auto) 5.7, Absolute Lymphs (auto) 0.59 L, Nucleated RBC % 0, Differential Comment COMMENT 06/18/21 05:26: Sodium 132 L, Potassium 3.9, Chloride 98, Carbon Dioxide 23.0, Anion Gap 11, BUN 18, Creatinine 1.22, Estim Creat Clear Calc 42.14, Est GFR (MDRD) Af Amer 73, Est GFR (MDRD) Non-Af 60, BUN/Creatinine Ratio 14.8, Glucose 155 H, Calcium 8.2 L, Magnesium 1.4 L, Total Bilirubin 0.50, AST 26, ALT 19, Alkaline Phosphatase 125 H, Total Protein 6.2 L, Albumin 2.6 L, Globulin 3.6, Albumin/Globulin Ratio 0.7 L Radiology Impression Chest X-Ray 06/17/21 10:10 IMPRESSION: Subtle opacification in the right lower lobe likely early infiltrate or atelectasis. Follow-up recommended to ensure resolution Electronically Signed: En Trevino MD at 11:00 EST , Service support , Chest CTA 06/17/21 10:36 IMPRESSION: No demonstrated PE, or thoracic aortic aneurysm or dissection Diffuse interstitial and airspace opacifications in the inferior halves of both lung cruz with small effusions. Follow-up recommended to assure resolution. Chronic bronchitis Calcified coronary vessels Degenerative bony changes Electronically Signed: En Trevino MD at 11:45 EST , Service support , COVID-19 pneumonia in elderly man with underlying CLL. I agree with current treatment of low-dose dexamethasone plus remdesivir along with DVT prophylaxis. Continue supportive care.
[2021-06-18] MEDS: Enoxaparin 40 MG/0.4 ML Syringe SC ×2 (10:54→22:39)
[2021-06-18] MEDS: Doxazosin 1 MG Tablet PO (10:55)
[2021-06-18] MEDS: DULoxetine Hcl 60 MG Capsule PO (10:55)
[2021-06-18] MEDS: dexAMETHasone 4 MG Tablet 6 MG PO (10:55)
[2021-06-18] MEDS: Folic Acid/Vitamin B Comp W-C 1 Capsule 1 CAP PO (10:56)
[2021-06-18] MEDS: Multivitamins,Therapeutic Tablet 1 TABLET PO (10:56)
[2021-06-18] MEDS: Cholecalciferol (VIT D3) 25 MCG TABLET (1,000 UNITS) 125 MCG PO (10:57)
[2021-06-18] MEDS: Allopurinol 100 MG Tablet PO ×2 (10:57→22:36)
[2021-06-18] MEDS: IBRUTINIB 140 MG CAPSULE 420 MG PO (11:03)
[2021-06-18] MEDS: Gabapentin 300 MG Capsule PO ×2 (11:05→16:29)
[2021-06-18 11:15] LABS: Bedside Glucose 267 mg/dL (70-110)
--- NOTE | 2021-06-18 12:08 | CASEMGMT ---
RAH MARTINEZ Assessment: Face to Face with pt for initial transition planning/care coordination assessment. RAH MARTINEZ introduced self and role at [facility], pt voices understanding and consents to assessment. Pt is A/O x4 and answers all questions appropriately at this time. Pt lying in bed with O2 on in no distress. Care providers, pharmacy, and demographics verified/updated. Admitting Dx: COVID 19 PCP:Bashir Specialists:Pt has physician at [facility], states the provider changes frequently. Pt has a hand ii thermal cutter and oncologist at [facility]. Preferred Pharmacy: [facility] Retail Insurance: [employer] Prescription Benefit: yes, pt states he gets most of his meds from the [place]. LW/HPOA: Pt has a LW/DPOA on file at [facility]. Pt DPOA is Ebony Everett. LNOK: Ebony Everett, ; Shannon Gilletteley, dtr Living Arrangements: Pt lives with and dtr in a story and a half house with 1 step to enter. Pt reports he is I in ADL's and denies concerns at home. Transportation: Pt transports him to medical appts or he uses the [place] van for [facility] appts. DME/HHC/SNF: Pt has a BGM with sufficient supplies at home. He gets these supplies from the [place]. He tests his blood sugar twice daily. Pt also has a cane and grab bars in the home. Pt denies having any HHC or SNF stays. Pt was first tested for COVID at [facility]. Pt has family who can provide him with groceries and supplies. He is able to quarantine from his and dtr by using separate bedrooms and bathrooms. Discussed local in network DME companies should pt need home O2, pt has no preference. Pt states no concerns with going home at time of dc. Pt states no further concerns/needs. CM to follow. Advised pt to ask CM if any further question/concerns/needs arise, voices understanding. Pt Goal: Home Plan: Home
[2021-06-18 12:36] LABS: Bedside Glucose 155 mg/dL (70-110)
[2021-06-18] MEDS: 0.9% Saline Lock 10 ML Syringe IV (13:52)
--- NOTE | 2021-06-18 16:17 | PN.HOSP_ITS ---
Subjective Subjective Follow-up on acute hypoxic respiratory failure/acute COVID-19 pneumonia: Patient was seen and examined. Remains on 2 L of oxygen. Denies any new complaints. Objective Data Objective Data Vital Signs: Vital Signs Temp Pulse Resp BP Pulse Ox 97.8 F 71 16 136/62 H 97 06/18/21 10:42 06/18/21 10:42 06/18/21 10:42 06/18/21 10:42 06/18/21 14:20 Oxygen Flow Rate (L/min) 2 Oxygen Delivery Method Nasal Cannula Weight: 80.314 kg Body Mass Index (BMI) 27.7 Intake & Output: Intake and Output for Last 24 Hours 06/16/21 06/17/21 06/18/21 23:59 23:59 23:59 Intake Total 2027.5 / 2027.5 354 / 354 Output Total 1375 / 1375 550 / 550 Balance 652.5 / 652.5 -196 / -196 Lab / Micro Data Result Diagrams: 06/18/21 05:26 06/18/21 05:26 Labs: Laboratory Results - last 24 hr 06/17/21 16:34: POC Glucose 272 H 06/17/21 21:26: POC Glucose 378 H 06/18/21 05:26: WBC 6.9, RBC 3.70 L, Hgb 11.8 L, Hct 33.3 L, MCV 90.0, MCH 31.9, MCHC 35.4, RDW Std Deviation 50.0 H, RDW Coeff of Samreen 15.4 H, Plt Count 98 L, MPV 10.7, Immature Gran % (Auto) 3.800 H, Neut % (Auto) 81.7 H, Lymph % (Auto) 8.5 L, [place] % (Auto) 5.4, Eos % (Auto) 0.0, Baso % (Auto) 0.6, Absolute Neuts (auto) 5.7, Absolute Lymphs (auto) 0.59 L, Nucleated RBC % 0, Differential Comment COMMENT 06/18/21 05:26: Sodium 132 L, Potassium 3.9, Chloride 98, Carbon Dioxide 23.0, Anion Gap 11, BUN 18, Creatinine 1.22, Estim Creat Clear Calc 42.14, Est GFR (MDRD) Af Amer 73, Est GFR (MDRD) Non-Af 60, BUN/Creatinine Ratio 14.8, Glucose 155 H, Calcium 8.2 L, Magnesium 1.4 L, Total Bilirubin 0.50, AST 26, ALT 19, Alkaline Phosphatase 125 H, Total Protein 6.2 L, Albumin 2.6 L, Globulin 3.6, Albumin/Globulin Ratio 0.7 L 06/18/21 06:49: POC Glucose 155 H 06/18/21 10:41: POC Glucose 267 H Physical Exam Narrative Physical exam: General: Alert, Oriented x3, Cooperative, No apparent distress, Well developed, on 2 L oxygen HEENT: Atraumatic Oral: Moist Mucosa Neck: Supple Lungs: Diminished to auscultation Cardiovascular: HS I+II, regular, no murmurs Abdomen: Bowel Sounds Present, Soft, Non Tender Extremities: No edema Assessment & Plan Assessment/Plan (1) COVID-19: (2) Hypoxemia: PLAN: 1. Acute hypoxic respiratory failure secondary to acute COVID-19 pneumonia Chest x-ray shows opacification in right lower lobe likely early infiltrate or atelectasis CTA of the chest shows diffuse interstitial and airspace opacities seen in both lungs Patient is immunocompromised Continue on dexamethasone and remdesivir ID consulted 2. Hypomagnesemia, replaced, recheck in a.m. 3. Type II DM, blood sugars fairly uncontrolled Home Metformin on hold Increase Lantus to 15 units nightly, insulin sliding scale 4. Rest of his chronic medical conditions including hypertension, GERD, CLL, chronic pain syndrome, gout remained stable Rest of his home meds reviewed Charges/Coding Visit Charges Inpatient E&M: 50343 Subs Hosp L2
[2021-06-18 17:16] LABS: Bedside Glucose 194 mg/dL (70-110)
[2021-06-18] MEDS: Pantoprazole Sodium 20 MG Tablet PO (22:36)
[2021-06-18] MEDS: Magnesium Chloride 64 MG Delay Rel.Tablet 128 MG PO (22:36)
[2021-06-18] MEDS: Montelukast 10 MG Tablet PO (22:37)
[2021-06-18 22:50] LABS: Bedside Glucose 229 mg/dL (70-110)
[2021-06-19 04:50] VITALS: BP 157/85; PULSE 61; RESP 16; TEMP 36.4; O2SAT 94
[2021-06-19] MEDS: Insulin Lispro 100 UNIT/ML INSULN.PEN SC ×2 (05:58→11:31)
[2021-06-19 06:35] LABS: Bedside Glucose 154 mg/dL (70-110)
[2021-06-19 06:51] LABS: Absolute Lymphocyte Count 0.52 X10^3/uL (0.83-4.51); Absolute Neutrophil Count 6.2 X10^3/uL (2.0-7.7); Basophil# 0.09 X10^3/uL; Basophil% 1.2 % (0-1); Hematocrit 33.8 % (40-54); Hemoglobin 11.5 g/dL (13.0-16.5); Lymphocyte # 0.52 X10^3/ul (0.83-4.51); Lymphocyte % 6.9 % (19-41); Mean Corpuscular Hgb 30.9 pg (27.0-32.0); Mean Corpuscular Volume 90.9 fL (80-94); Mean Platelet Vol. 10.6 fl (6.2-12.0); Monocyte# 0.44 X10^3/uL; Monocyte% 5.8 % (0-10); NRBC Flagged by Analyzer 0 % (0-5); Neutrophil # 6.18 X10^3/uL (2.7-7.7); Neutrophil % 81.6 % (47-70); POSITIVE COUNT YES; POSITIVE DIFFERENTIAL YES; Platelet Count 98 K/mm3 (150-450); RBC Distribution Width CV 15.2 % (11.6-14.6); RBC Distribution Width SD 50.4 fl (35.1-43.9); Red Blood Count 3.72 M/mm3 (4.6-6.2); White Blood Count 7.6 K/mm3 (4.4-11.0)
[2021-06-19 06:54] LABS: Differential Indicated SCAN CRITERIA MET
[2021-06-19 07:13] LABS: Differential Comment SCANNED; Platelet Estimate SLT DEC (ADEQ)
[2021-06-19 07:31] LABS: ALB/GLOB Ratio 0.8 RATIO (0.9-2.4); AST(SGOT) 27 U/L (15-37); Alanine Aminotransfer ALT/SGPT 23 U/L (16-61); Albumin, Serum 2.5 g/dL (3.2-5.0); Alkaline Phosphatase 110 U/L (45-117); Anion Gap 10 (5-15); BUN 20 mg/dL (7-18); BUN/Creat Ratio 20.1 RATIO (10-20); Calcium,Total 8.1 mg/dL (8.5-10.1); Chloride 97 mmol/L (98-107); EST Glomerular Filtration Rate 76 mL/min (>60); Est Glom Filt Rate - Afr Amer 92 mL/min (>60); Estimated Creatinine Clearance 51.41 ml/min; Globulin 3.2 g/dL (2.2-4.2); Glucose 146 mg/dL (74-106); Magnesium 1.8 mg/dL (1.6-2.6); Protein, Total 5.7 g/dL (6.4-8.2); Sodium Level 130 mmol/L (136-145)
[2021-06-19 10:00] VITALS: O2SAT 94
[2021-06-19 10:14] VITALS: BP 118/67; PULSE 74; RESP 18; TEMP 36.6; O2SAT 93
[2021-06-19] MEDS: 0.9% Saline Lock 10 ML Syringe IV (10:15)
[2021-06-19] MEDS: Doxazosin 1 MG Tablet PO (10:16)
[2021-06-19] MEDS: Magnesium Chloride 64 MG Delay Rel.Tablet 128 MG PO (10:16)
[2021-06-19] MEDS: Enoxaparin 40 MG/0.4 ML Syringe SC (10:16)
[2021-06-19] MEDS: Gabapentin 300 MG Capsule PO ×2 (10:16→11:34)
[2021-06-19] MEDS: dexAMETHasone 4 MG Tablet 6 MG PO (10:16)
[2021-06-19] MEDS: Cholecalciferol (VIT D3) 25 MCG TABLET (1,000 UNITS) 125 MCG PO (10:16)
[2021-06-19] MEDS: Multivitamins,Therapeutic Tablet 1 TABLET PO (10:16)
[2021-06-19] MEDS: DULoxetine Hcl 60 MG Capsule PO (10:16)
[2021-06-19] MEDS: Folic Acid/Vitamin B Comp W-C 1 Capsule 1 CAP PO (10:16)
[2021-06-19] MEDS: Allopurinol 100 MG Tablet PO (10:16)
[2021-06-19] MEDS: IBRUTINIB 140 MG CAPSULE 420 MG PO (11:31)
[2021-06-19 11:46] LABS: Bedside Glucose 288 mg/dL (70-110)
[2021-06-19 12:00] VITALS: O2SAT 90; O2SAT 94
--- NOTE | 2021-06-19 12:04 | CASEMGMT ---
Patient did not qualify for home oxygen per walking SpO2 qualification test.
--- NOTE | 2021-06-19 12:25 | DS.PCM_ITS ---
Providers Date of Admission: 06/17/21 Date of Discharge: 06/19/21 Primary Care Physician: Dr. Daniel Camejo DO Consultations 06/17/21 12:25 Consult: Infectious Disease Routine Consulting Provider: Kurtis Rivero Reason for Consult: Covid-19 EMERGENT Consult: No MD Notified: Yes Date Notified: 06/18/21 Time Notified: 09:16 Method of Notification: office Reason For Visit: COVID-19 Diagnosis Discharge Diagnosis (1) COVID-19: Status: Acute Code(s): U07.1 - COVID-19 (2) Hypoxemia: Status: Acute Code(s): R09.02 - Hypoxemia Medications at Discharge Home Medications allopurinol 100 mg PO BID 04/29/17 cholecalciferol (vitamin D3) 5,000 unit PO DAILY 04/29/17 cyanocobalamin (vitamin B-12) 1,000 mcg IM Q30D 04/29/17 gabapentin 300 mg PO TID 04/29/17 gemfibrozil 600 mg PO QHS 04/29/17 metformin 1,000 mg PO BID 04/29/17 omeprazole 20 mg PO QHS 04/29/17 ibrutinib 420 mg PO LUNCH 02/18/19 montelukast 10 mg PO QHS 04/14/20 albuterol sulfate [Ventolin HFA] 2 puff INHALATION Q4H PRN PRN #1 inhaler 12/11/20 B complex-vitamin C-folic acid 1 tab PO DAILY 06/17/21 Renal Caps 1 cap PO DAILY 06/17/21 Restasis 1 drp EACH EYE Q12H 06/17/21 alogliptin [Nesina] 12.5 mg PO DAILY 06/17/21 duloxetine 60 mg PO DAILY 06/17/21 hydroxyzine HCl 25 mg PO TID PRN 06/17/21 multivitamin 1 tab PO DAILY 06/17/21 oxycodone-acetaminophen 1 tab PO BID PRN 06/17/21 terazosin 1 mg PO DAILY 06/17/21 aspirin [Aspirin Childrens] 81 mg PO DAILY 30 Days #30 tab 06/19/21 dexamethasone 6 mg PO DAILY 7 Days #11 tab 06/19/21 glimepiride [Amaryl] 4 mg PO DAILY 30 Days #60 tab 06/19/21 Hospital Course Operations None Procedures None Summary of Care Provided Minutes Spent on Discharge: 45 Hospital Course: 85-year-old male with past medical history of CLL, on ibrutinib, who is fully vaccinated, comes in with progressive shortness of breath and tested positive for acute COVID-19 infection on 06/15/21. Patient presented to the emergency room with progressive shortness of breath and wheezing. CT of the chest was negative for acute PE. CT of the chest demonstrated diffuse interstitial and airspace of extrication inferior half of both lungs with small effusion. Patient was admitted to the [facility] floor and managed on dexamethasone and remdesivir. He was seen by infectious disease. He continued to have improvement in his oxygen requirements. He did not require oxygen at discharge. He was discharged to complete 10 days of dexamethasone. He was also discharged on aspirin 81 mg daily. Patient was encouraged to use his incentive spirometer. He will follow-up with his primary care doctor within 1 to 2 weeks. Physical Exam Narrative Physical exam: General: Alert, Oriented x3, Cooperative, No apparent distress, Well developed, on 2 L oxygen HEENT: Atraumatic Oral: Moist Mucosa Neck: Supple Lungs: Diminished to auscultation Cardiovascular: HS I+II, regular, no murmurs Abdomen: Bowel Sounds Present, Soft, Non Tender Extremities: No edema Weight / BMI Weight Weight: 80.314 kg Body Mass Index (BMI) 27.7 ABG / Lab / Microbiology Data Result Diagrams: 06/19/21 05:44 06/19/21 05:47 Laboratory: Laboratory Results - last 24 hr 06/18/21 06:49: POC Glucose 155 H 06/18/21 16:32: POC Glucose 194 H 06/18/21 22:35: POC Glucose 229 H 06/19/21 05:44: WBC 7.6, RBC 3.72 L, Hgb 11.5 L, Hct 33.8 L, MCV 90.9, MCH 30.9, MCHC 34.0, RDW Std Deviation 50.4 H, RDW Coeff of Samreen 15.2 H, Plt Count 98 L, MPV 10.6, Immature Gran % (Auto) 4.500 H, Neut % (Auto) 81.6 H, Lymph % (Auto) 6.9 L, [place] % (Auto) 5.8, Eos % (Auto) 0.0, Baso % (Auto) 1.2 H, Absolute Neuts (auto) 6.2, Absolute Lymphs (auto) 0.52 L, Nucleated RBC % 0, Differential Comment SCANNED, Platelet Estimate [facility] 06/19/21 05:47: Sodium 130 L, Potassium 4.0, Chloride 97 L, Carbon Dioxide 23.0, Anion Gap 10, BUN 20 H, Creatinine 1.00, Estim Creat Clear Calc 51.41, Est GFR (MDRD) Af Amer 92, Est GFR (MDRD) Non-Af 76, BUN/Creatinine Ratio 20.1 H, Glucose 146 H, Calcium 8.1 L, Magnesium 1.8, Total Bilirubin 0.50, AST 27, ALT 23, Alkaline Phosphatase 110, Total Protein 5.7 L, Albumin 2.5 L, Globulin 3.2, Albumin/Globulin Ratio 0.8 L 06/19/21 05:57: POC Glucose 154 H 06/19/21 11:30: POC Glucose 288 H Microbiology: Microbiology 06/17/21 11:50 Blood Culture (Wb) - Left Hand Blood Culture - Preliminary No growth in 48 hours. D/C Instructions Discharge Diet: No restrictions Meaningful Use Info Meaningful Use Diagnoses (Choose all that apply): None applicable Discharge Plan Admission Admit Date/Time: 06/17/21 12:16 Primary Reason for Your Visit: Acute COVID-19 pneumonia Attending Provider: Fany Mckeon Primary Care Provider: Daniel Camejo Consulting Providers: uKrtis Rivero Instructions Additional Instructions / Restrictions: Continue to use your incentive spirometer. Continue to remain active and eat healthy. Let your doctor know if you develop fever >101.3F or have progressive worsening shortness of breath. Follow-up with your primary care doctor. Complete your Decadron as prescribed. Continue to use your inhaler as needed for shortness of breath. Continue to quarantine for 20 days total from the start of your symptoms. Your blood sugars are elevated because of the dexamethasone. Continue to measure blood sugars 3 times a day. Let your primary care doctor know if your blood sugars remain elevated for adjustment in your medications. Follow-up with your primary care doctor in 1-2 week and you will need repeat blood work. Discharge Orders/Prescriptions Prescriptions: New dexamethasone 4 mg Tablet 6 mg PO DAILY 7 Days Qty: 11 RF: 0 glimepiride [Amaryl] 4 mg tablet 4 mg PO DAILY 30 Days Qty: 60 RF: 0 aspirin [Aspirin Childrens] 81 mg tablet,chewable 81 mg PO DAILY 30 Days Qty: 30 RF: 0 Continued metformin 500 MG tablet 1,000 mg PO BID RF: 0 allopurinol 100 MG tablet 100 mg PO BID RF: 0 cyanocobalamin (vitamin B-12) 1,000 MCG/ML solution 1,000 mcg IM Q30D RF: 0 gabapentin 300 MG capsule 300 mg PO TID RF: 0 omeprazole 20 MG capsule 20 mg PO QHS RF: 0 cholecalciferol (vitamin D3) 5,000 UNIT capsule 5,000 unit PO DAILY RF: 0 gemfibrozil 600 MG tablet 600 mg PO QHS RF: 0 ibrutinib 140 MG capsule 420 mg PO LUNCH RF: 0 montelukast 10 MG tablet 10 mg PO QHS RF: 0 albuterol sulfate [Ventolin HFA] 1 INHALER inhaler 2 puff inhalation Q4H PRN PRN (Reason: Wheezing) Qty: 1 RF: 0 multivitamin Tablet 1 tab PO DAILY RF: 0 oxycodone-acetaminophen 5-325 mg Tablet 1 tab PO BID PRN (Reason: Pain) RF: 0 B complex-vitamin C-folic acid 1 mg Tablet 1 tab PO DAILY RF: 0 terazosin 1 mg Tablet 1 mg PO DAILY RF: 0 hydroxyzine HCl 25 mg Tablet 25 mg PO TID PRN (Reason: Anxiety) RF: 0 Renal Caps 1 mg Capsule 1 cap PO DAILY RF: 0 Restasis 0.05 % Dropperette 1 drp EACH EYE Q12H RF: 0 duloxetine 60 mg Capsule,Delayed Release(Dr/Ec) 60 mg PO DAILY RF: 0 alogliptin [Nesina] 12.5 mg Tablet 12.5 mg PO DAILY RF: 0 Referrals / Follow Up: Daniel Camejo DO [Primary Care Provider] - Within 2 Weeks Disposition Disposition (needs filled in before D/C Order can be placed): Home, Self Care Charges/Coding Visit Charges Inpatient E&M: 62259 Disch Hosp
[2021-06-19 14:31] VITALS: BP 138/74; PULSE 80; RESP 20; TEMP 36.6; O2SAT 94
== END 2021-06-19 15:17 | disposition home or self-care (01) | DRG 177 ==
LOC: ED 12:09 → MS3 12:37
PROVIDERS: Admitting Provider Internal Medicine; Emergency Provider Emergency Medicine; PCP Student in an Organized Health Care Education/Training Program; Visit Provider Internal Medicine
DX: U07.1 COVID-19 (principal); J12.82 Pneumonia due to coronavirus disease 2019; J96.01 Acute respiratory failure with hypoxia; C91.10 Chronic lymphocytic leukemia of B-cell type not having achieved remission; E87.1 Hypo-osmolality and hyponatremia; E83.42 Hypomagnesemia; E11.65 Type 2 diabetes mellitus with hyperglycemia; T38.0X5A Adverse effect of glucocorticoids and synthetic analogues, initial encounter; E78.00 Pure hypercholesterolemia, unspecified; K21.9 Gastro-esophageal reflux disease without esophagitis; M10.9 Gout, unspecified; G89.4 Chronic pain syndrome; Z79.84 Long term (current) use of oral hypoglycemic drugs; Z79.899 Other long term (current) drug therapy
CPT/HCPCS: 36415; 71045; 71275; 80048; 80053; 82962; 83605; 83735; 84484; 85025; 85379; 87040; 93005; 94640; 94762; 99251; 99285; J7030; J7050; Q9967; A4216; G0463; J1940

== ENCOUNTER 2021-06-21 12:07 | Emergency (ER) | payer MEDICARE, SELFPAY ==
[2021-06-21] VITALS (11 sets, daily range): BP systolic 121–182; BP diastolic 53–101; PULSE 58–97; RESP 16–25; TEMP 36.9; O2SAT 86–98; BMI 26.2
--- NOTE | 2021-06-21 12:39 | EKG12_ITS ---
Test Reason : SOB Blood Pressure : / mmHG Vent. Rate : 086 BPM Atrial Rate : 086 BPM P-R Int : 158 ms QRS Dur : 098 ms QT Int : 358 ms P-R-T Axes : 042 041 047 degrees QTc Int : 428 ms Sinus rhythm with frequent Premature ventricular complexes Otherwise normal ECG Confirmed by ARY SIMON, JUNE ([id number]), avid editor MEGAN ARGUETA ([id number]) on 06/26/2021 9:30:37 AM Referred By: JENSEN/JANNIE Confirmed By:JUNE MCALLISTER MD
[2021-06-21] MEDS: 0.9% Normal Saline 1,000 ML 125 ML IV (12:40)
--- NOTE | 2021-06-21 12:40 | EDS_ITS ---
HPI History of Present Illness Chief Complaint: Shortness of Breath Informant: patient Onset/Context/Timing Onset: Yesterday Context: gradual Timing: Continuous Quality: Positive for Dyspnea on exertion Current Severity: Mild Maximum Severity: Severe Worsened by: Exertion Relieved by: Oxygen Associated Symptoms cough Chest Pain: Positive for Intermittent and Dull; Negative for Pleuritic Narrative Narrative: Patient has Covid, he was diagnosed 6 days ago and started having symptoms 2 or 3 days prior to that. He was recently discharged from the hospital after being an inpatient for same, he is finishing up his dexamethasone at home and was given remdesivir as an inpatient. Yesterday he started feeling more dyspneic and weak. Although he initially was hypoxic, he was not sent home on any oxygen since he subsequently did not require it. [facility] Medical History Ankle fracture, left BPH (benign prostatic hyperplasia) Bronchitis Chronic leukemia Diabetes GERD (gastroesophageal reflux disease) History of gout History of hyperlipidemia History of non anemic vitamin B12 deficiency History of shingles Radiculopathy of leg Spinal stenosis Home Medications allopurinol 100 mg PO DAILY 04/29/17 [History Last Taken 06/21/21] cholecalciferol (vitamin D3) 5,000 unit PO DAILY 04/29/17 [History Last Taken 06/20/21] cyanocobalamin (vitamin B-12) 1,000 mcg IM Q30D 04/29/17 [History Last Taken Unknown] gabapentin 300 mg PO TID 04/29/17 [History Last Taken 06/21/21] metformin 1,000 mg PO BID 04/29/17 [History Last Taken 06/21/21] omeprazole 20 mg PO DAILY 04/29/17 [History Last Taken 06/21/21] ibrutinib 420 mg PO LUNCH 02/18/19 [History Last Taken 06/20/21] montelukast 10 mg PO QHS 04/14/20 [History Last Taken 06/20/21] albuterol sulfate [Ventolin HFA] 2 puff INHALATION Q4H PRN PRN #1 inhaler 12/11/20 [Rx Last Taken Unknown] Renal Caps 1 cap PO DAILY 06/17/21 [History Last Taken 06/20/21] Restasis 1 drp EACH EYE Q12H 06/17/21 [History Last Taken Unknown] alogliptin [Nesina] 12.5 mg PO DAILY 06/17/21 [History Last Taken 06/21/21] duloxetine 60 mg PO DAILY 06/17/21 [History Last Taken 06/21/21] hydroxyzine HCl 25 mg PO TID PRN 06/17/21 [History Last Taken Unknown] multivitamin 1 tab PO DAILY 06/17/21 [History Last Taken 06/20/21] oxycodone-acetaminophen 1 tab PO BID PRN 06/17/21 [History Last Taken Unknown] aspirin [Aspirin Childrens] 81 mg PO DAILY 30 Days #30 tab 06/19/21 [Rx Last Taken Unknown] glimepiride [Amaryl] 4 mg PO DAILY 30 Days #60 tab 06/19/21 [Rx Last Taken Unknown] dexamethasone 6 mg PO DAILY 06/21/21 [History Last Taken 06/21/21] terazosin 1 mg PO QHS 06/21/21 [History Last Taken 06/20/21] Allergy/AdvReac Type Severity Reaction Status Date / Time Lsuygnv-EIX-ZvO Reductase Allergy Pain in Verified 06/21/21 12:09 Inhibitor joints [Nwrcngv-Pyj-Lbj Reductase Inhibitor] prednisone AdvReac Nausea/Vom/ Verified 06/21/21 12:09 Diarrhea Family History Mother Cancer skin Father Colon cancer Sister Cancer Brother Heart disease Social History Smoking Status: Never smoker ROS ROS ED Constitutional Constitutional ED: Reports body ache(s), chills, fatigue, fever(s), headache(s) and malaise Eyes Eyes: Denies change in vision or diplopia ENT ENT ED: Denies rhinorrhea or sore throat Cardiovascular Cardiovascular: Reports pedal edema; Denies chest pain or palpitations Respiratory/Chest Respiratory/Chest: Reports cough, dyspnea and dyspnea on exertion Gastrointestinal Gastrointestinal: Denies abdominal pain, diarrhea, nausea or vomiting Genitourinary Genitourinary ED: Denies dysuria or hematuria Musculoskeletal Musculoskeletal: Denies back pain or neck pain Integumentary Denies abscess or rash Neurologic Neurologic: Reports headache(s); Denies paresthesias or weakness Psychiatric Psychiatric: Denies anxiety or suicidal thoughts EXAM Physical Exam Const Vital Signs: 06/21/21 12:08 06/21/21 12:09 06/21/21 12:47 Temperature 98.5 F 98.5 F Temperature Source Oral Oral Pulse Rate 89 89 Respiratory Rate 23 H 23 H Blood Pressure 153/53 H 153/53 H Blood Pressure Mean 86 86 Pulse Ox 86 93 95 Pulse Ox [AMBULATING on Room Air] Pulse Ox [AMBULATING with Oxygen #1] Pulse Ox [At REST with Oxygen] Oxygen Delivery Method Nasal Cannula Nasal Cannula Nasal Cannula Oxygen Flow Rate (L/min) 2 4 4 Oxygen Flow Rate (L/min) [AMBULATING with Oxygen #1] Oxygen Flow Rate (L/min) [At REST with Oxygen] 06/21/21 13:11 06/21/21 14:23 06/21/21 15:29 Temperature Temperature Source Pulse Rate 87 58 L 89 Respiratory Rate 19 H 16 22 H Blood Pressure 121/94 H 127/101 H 138/74 H Blood Pressure Mean 103 109 95 Pulse Ox 92 98 94 Pulse Ox [AMBULATING on Room Air] Pulse Ox [AMBULATING with Oxygen #1] Pulse Ox [At REST with Oxygen] Oxygen Delivery Method Nasal Cannula Room Air Nasal Cannula Oxygen Flow Rate (L/min) 4 4 Oxygen Flow Rate (L/min) [AMBULATING with Oxygen #1] Oxygen Flow Rate (L/min) [At REST with Oxygen] 06/21/21 16:24 06/21/21 17:08 06/21/21 17:35 Temperature Temperature Source Pulse Rate 97 88 Respiratory Rate 25 H 16 Blood Pressure 182/78 H 159/70 H Blood Pressure Mean 112 99 Pulse Ox 97 98 Pulse Ox [AMBULATING on Room Air] 89 Pulse Ox [AMBULATING with Oxygen #1] 95 Pulse Ox [At REST with Oxygen] 88 Oxygen Delivery Method Room Air Room Air Oxygen Flow Rate (L/min) Oxygen Flow Rate (L/min) [AMBULATING with Oxygen #1] 4 Oxygen Flow Rate (L/min) [At REST with Oxygen] 5 Positive well nourished and well developed Constitutional Narrative: Malaised-appearing, mild resp distress General Appearance ED: well developed and NAD HEENT Reports moist mucous membranes normocephalic and atraumatic Eyes PERRL and EOMs intact bilaterally Neck full ROM and supple Resp normal respiratory effort and clear to auscultation bilaterally Cardio regular rate, regular rhythm and no murmurs Rate: Negative for tachycardic GI non-tender and non-distended Auscultation: normoactive bowel sounds Palpation: soft Back/Spine no CVA tenderness General Back: other FROM Extremity normal to inspection and no calf tenderness General Extremety ED: Yes edema; Negative for pulses abnormal or tenderness General Extremity: edema bilateral lower extremity Details: moderate (chronic and unchanged per pt); Negative for pulses abnormal Neuro oriented x3, CN's II-XII intact bilaterally and no sensory deficits noted Sensorium / Orientation: awake and alert Motor Exam: strength 5/5 throughout Skin no rashes or lesions noted and no wounds MDM MDM MDM Narrative Medical decision making narrative: Chest x-ray showing worsening Covid pneumonitis. I think this explains his worsening symptoms. He recently had PE ruled out, so I do not think he requires a repeat exposure to contrast right now. He is stable on nasal cannula, however he is at 4 L and 90-93% with worsening symptoms. I fear he may continue to worsen and quickly return if we discharged him home, so I asked hospitalist to admit the patient but they refused due to not advancing any medical therapy since the patient already received remdesivir, dexamethasone, and that we can provide oxygen for him to go home with. I discussed all this with the patient, we tried albuterol via MDI several puffs, inhaled, he initially had trouble but then we used a spacer and have him try to get he needed it better, this did help his breathing and oxygenation, he was 97-98% on 3-4 L. I discussed that we will likely not be doing any more in the hospital according to the hospitalists compared with what he will be doing outside of the hospital at this time, since he does not have respiratory failure and he is getting around okay, he is cautiously amenable to that at this time. We discussed reasons to return. We are sending him home with the MDI and oxygen. Upon further evaluation of his chart, he has never had a positive Covid test here recently, nor has he had a negative one. It appears that he was clinically diagnosed with Covid based on radiography, and treated with remdesivir accordingly without being tested for it. We ran a rapid Covid based on this, because it was required in order to get him oxygen; it is positive. On reevaluation, patient took off his oxygen, got dressed on his own, and was sitting in a chair when he was reevaluated after his Covid test returned, 94% on room air, breathing well. Lab Data Attestation: I reviewed the patient's lab results. Labs: Laboratory Results - last 24 hr 06/21/21 06/21/21 06/21/21 12:10 12:10 12:10 WBC 11.0 RBC 4.40 L Hgb 13.7 Hct 39.8 L MCV 90.5 MCH 31.1 MCHC 34.4 RDW Std Deviation 50.7 H RDW Coeff of Samreen 15.3 H Plt Count 151 MPV 10.3 Neut % (Auto) Not Reportable Absolute Neuts (auto) 8.7 H Absolute Lymphs (auto) 0.66 L Total Counted 100 Neutrophils % (Manual) 59 Band Neutrophils % 20 H Lymphocytes % (Manual) 6 L Monocytes % (Manual) 9 Metamyelocytes % 3 H Myelocytes % 3 H Diff Path Review May foll Platelet Estimate ADEQUATE RBC Morphology NORM C+C Sodium 130 L Potassium 3.7 Chloride 95 L Carbon Dioxide 26.0 Anion Gap 9 BUN 20 H Creatinine 1.08 Estim Creat Clear Calc 52.57 Est GFR (MDRD) Af Amer 84 Est GFR (MDRD) Non-Af 69 BUN/Creatinine Ratio 18.5 Glucose 202 H Lactic Acid 1.9 Calcium 8.8 Total Bilirubin 1.00 AST 32 ALT 46 Alkaline Phosphatase 132 H Troponin I High Sens 10 Total Protein 6.7 Albumin 3.1 L Globulin 3.6 Albumin/Globulin Ratio 0.9 Procalcitonin 06/21/21 12:10 WBC RBC Hgb Hct MCV MCH MCHC RDW Std Deviation RDW Coeff of Samreen Plt Count MPV Neut % (Auto) Absolute Neuts (auto) Absolute Lymphs (auto) Total Counted Neutrophils % (Manual) Band Neutrophils % Lymphocytes % (Manual) Monocytes % (Manual) Metamyelocytes % Myelocytes % Diff Path Review Platelet Estimate RBC Morphology Sodium Potassium Chloride Carbon Dioxide Anion Gap BUN Creatinine Estim Creat Clear Calc Est GFR (MDRD) Af Amer Est GFR (MDRD) Non-Af BUN/Creatinine Ratio Glucose Lactic Acid Calcium Total Bilirubin AST ALT Alkaline Phosphatase Troponin I High Sens Total Protein Albumin Globulin Albumin/Globulin Ratio Procalcitonin 0.08 Radiography Diagnostic Testing: Clinical Impression(s) from Imaging Studies Chest X-Ray 06/21/21 13:00 IMPRESSION: Progressive bibasilar patchy infiltrates. Electronically Signed: Donnie Moreira MD at 13:34 EST , Service support , Rhythm Strip Rhythm Strip: Sinus Rhythm Rate: 83 Ectopy: PVC(s) EKG Initial EKG: Attestation: I personally reviewed and interpreted this EKG as follows: Interpretation: Sinus Rhythm and No Acute Injury Pattern Comments: freq PVCs Discharge Plan Triage Chief Complaint: Shortness of Breath ED Provider: Kael Woodward Dx/Rx/DC Orders Clinical Impression: Pneumonia due to COVID-19 virus, Hypoxemia, Reactive airway disease Instructions: Coronavirus Disease 2019 (COVID-19): Caring for Yourself or Others Prescriptions: No Action metformin 500 MG tablet 1,000 mg PO BID RF: 0 allopurinol 100 MG tablet 100 mg PO DAILY RF: 0 cyanocobalamin (vitamin B-12) 1,000 MCG/ML solution 1,000 mcg IM Q30D RF: 0 gabapentin 300 MG capsule 300 mg PO TID RF: 0 omeprazole 20 MG capsule 20 mg PO DAILY RF: 0 cholecalciferol (vitamin D3) 5,000 UNIT capsule 5,000 unit PO DAILY RF: 0 ibrutinib 140 MG capsule 420 mg PO LUNCH RF: 0 montelukast 10 MG tablet 10 mg PO QHS RF: 0 albuterol sulfate [Ventolin HFA] 1 INHALER inhaler 2 puff inhalation Q4H PRN PRN (Reason: Wheezing) Qty: 1 RF: 0 multivitamin Tablet 1 tab PO DAILY RF: 0 oxycodone-acetaminophen 5-325 mg Tablet 1 tab PO BID PRN (Reason: Pain) RF: 0 hydroxyzine HCl 25 mg Tablet 25 mg PO TID PRN (Reason: Anxiety) RF: 0 Renal Caps 1 mg Capsule 1 cap PO DAILY RF: 0 Restasis 0.05 % Dropperette 1 drp EACH EYE Q12H RF: 0 duloxetine 60 mg Capsule,Delayed Release(Dr/Ec) 60 mg PO DAILY RF: 0 alogliptin [Nesina] 12.5 mg Tablet 12.5 mg PO DAILY RF: 0 glimepiride [Amaryl] 4 mg tablet 4 mg PO DAILY 30 Days Qty: 60 RF: 0 aspirin [Aspirin Childrens] 81 mg tablet,chewable 81 mg PO DAILY 30 Days Qty: 30 RF: 0 dexamethasone 6 mg tablet 6 mg PO DAILY RF: 0 terazosin 1 mg Tablet 1 mg PO QHS RF: 0 Primary Care Provider: Daniel Camejo Referrals: Daniel Camejo DO [Primary Care Provider] - As Needed Activity Restrictions/Additional Instructions: Try to get a home portable pulse oximeter and closely watch your oxygen levels periodically. If you stay below 90% for more than a minute or so, and/or you are feeling like your breathing is getting worse, return to the emergency department for further evaluation. For wheezing/shortness of breath, use the inhaler you were given, 2-3 puffs inhaled separately, every 4 hours or so as needed. Disposition Disposition: Home, Self Care
[2021-06-21 12:51] LABS: Hematocrit 39.8 % (40-54); Hemoglobin 13.7 g/dL (13.0-16.5); Mean Corp Hgb Conc 34.4 g/dL (32-36); Mean Corpuscular Hgb 31.1 pg (27.0-32.0); Mean Corpuscular Volume 90.5 fL (80-94); Mean Platelet Vol. 10.3 fl (6.2-12.0); POSITIVE COUNT YES; POSITIVE DIFFERENTIAL YES; POSITIVE MORPHOLOGY YES; Platelet Count 151 K/mm3 (150-450); RBC Distribution Width CV 15.3 % (11.6-14.6); RBC Distribution Width SD 50.7 fl (35.1-43.9)
[2021-06-21 12:54] LABS: Differential Indicated MANUAL DIFF
--- NOTE | 2021-06-21 13:00 | RAD_ITS ---
STUDY: X-RAY CHEST REASON FOR EXAM: Male, 85 years old. Cough worsening sob, covid TECHNIQUE: Single AP portable view of the chest. COMPARISON: Comparison is made with prior study dated 06/17/2021. FINDINGS: EKG electrodes are seen. Progressive bibasilar pulmonary infiltrates since prior study. Azygous lobe. This is a normal variant. There is no demonstrated pleural abnormality. Normal size heart. Normal mediastinum and dianelys. Normal visualized pulmonary arteries. There is atherosclerotic calcification of the aortic arch with tortuosity. There are diffuse degenerative changes of the visualized thoracic spine. Normal visualized ribs, clavicles, and shoulders. There is no demonstrated abnormality of the visualized soft tissue structures of the upper abdomen. RAD/Chest 1 View (Portable) IMPRESSION: Progressive bibasilar patchy infiltrates. Electronically Signed: Donnie Moreira MD at 13:34 EST , Service support ,
[2021-06-21 13:02] LABS: ALB/GLOB Ratio 0.9 RATIO (0.9-2.4); AST(SGOT) 32 U/L (15-37); Alanine Aminotransfer ALT/SGPT 46 U/L (16-61); Albumin, Serum 3.1 g/dL (3.2-5.0); Alkaline Phosphatase 132 U/L (45-117); Anion Gap 9 (5-15); BUN 20 mg/dL (7-18); BUN/Creat Ratio 18.5 RATIO (10-20); Calcium,Total 8.8 mg/dL (8.5-10.1); Chloride 95 mmol/L (98-107); Creatinine, Serum 1.08 mg/dL (0.70-1.30); EST Glomerular Filtration Rate 69 mL/min (>60); Est Glom Filt Rate - Afr Amer 84 mL/min (>60); Estimated Creatinine Clearance 52.57 ml/min; Globulin 3.6 g/dL (2.2-4.2); Glucose 202 mg/dL (74-106); Potassium 3.7 mmol/L (3.5-5.1); Protein, Total 6.7 g/dL (6.4-8.2); Sodium Level 130 mmol/L (136-145); Troponin-I HS 10 pg/mL (3.0-78.0)
[2021-06-21 13:04] LABS: Lactic Acid 1.9 mmol/L (0.4-1.9)
[2021-06-21 13:05] LABS: Procalcitonin 0.08 ng/mL (0.00-0.09)
[2021-06-21 13:29] LABS: Lymphocyte 6 % (19-41); Metamyelocyte 3 % (0-1); Monocyte 9 % (0-10); Myelocyte 3 % (0-0); Neutrophil-Band 20 % (0-5); Neutrophil-Segmented 59 % (47-70); Total Cells Counted 100 (MANUAL DIFF)
[2021-06-21 13:30] LABS: Platelet Estimate ADEQUATE (ADEQ); Red Cell Morphology NORM C+C NORMAL (NORM C&C)
[2021-06-21 13:31] LABS: Absolute Lymphocyte Count 0.66 X10^3/uL (0.83-4.51); Absolute Neutrophil Count 8.7 X10^3/uL (2.0-7.7)
[2021-06-21] MEDS: Albuterol Sulfate 8 gm Inhaler (60 puffs) 4 PUFF INHALATION (15:37)
[2021-06-21] MEDS: INHALER, ASSIST DEVICES 1 EACH SPACER INHALATION (19:00)
--- NOTE | 2021-06-21 19:50 | ED.RN ---
wheelchair at dc
--- NOTE | 2021-06-25 14:28 | CASEMGMT ---
Addendum entered by Lita Patel 06/25/21 14:54: Mrs Everett states dtr set up pill container and pt has been taking Decadron as prescribed. Addendum entered by Lita Patel 06/25/21 14:48: Received TC back from Mrs Everett. She states pt is still having chest congestion but sats are maintaining 89% w/activity and 91% @ rest w/O2 in place. She states he has poor appetite but was able to get him to eat banana and cereal for breakfast and a little bit of mashed potatoes and fruit for lunch. She is encouraging fluids-he has drank 3 glasses of OJ today and some water. She states they are considering trying to get pt in for Monoclonal infusion and will discuss this further w/her daughter when she returns. She plans to call PCP's office today as well. Original Note: [facility] MARTINE[facility] ED O2 Follow-Up Phone Call. Discharge Date from ED on O2: 06/21/21 Attempted f/u phone call. No answer. Non-identifying VM received. Non-descript VM left requesting return call if there are any questions or concerns. Phone number provided. [place] JOHNSON RN, CM
[2021-06-26 10:32] LABS: Pathologist Review Reviewed
--- NOTE | 2021-06-26 13:50 | CASEMGMT ---
CM ED O2 Follow-Up Phone Call: RA[facility] MARTINEZ completed follow-up call at this time. RN CM spoke with patient's . states that patient is still weak and resting. Eating a little more today. Patient's SPO2 is around 88-89 on 4lpm. RN CM advised to turn oxygen up to 5lpm. RN CM instructed to continue to monitor oxygen levels and if patient remains under 90% on 5lpm to return to [facility] ED. voiced understanding. had no further questions or concerns at this time.
--- NOTE | 2021-06-28 17:52 | CASEMGMT ---
RN CM ED COVID Home O2 Follow-up: This RN CM contacted pt for home O2 follow-up. Pt's answered the phone and stated pt was available but unable to talk on the phone. Pt's reports pt to be wearing O2 at 5l/min with PO 89-93%. States the 89% occurs when the nasal prongs move and are only in one nostril or with activity. Pt is SOB when ambulating to the bathroom but not at rest. Pt's states they have been in contact with Dr. Camejo's office and his inhalers have been changed to nebulizers. They also have a follow-up appointment Friday or Friday with Dr. Camejo. Pt's passed the phone to their daughter Neo who expressed concerns about pt's mental status including the patient not understanding to let someone know he had to go to the bathroom but instead pulled out his penis and then peed in his chair. Pt also had an extensive conversation/argument with family about [place] and getting through border patrol. Pt's granddaughter Nathan states pt's legs are more swollen then usual and described pitting edema bilat with the side where he had previously fractured his ankle to be worse. They had him reclined in his chair today and noted the edema to have decreased. Pt's granddaughter reports to check pt's temperature routinely and denies any fevers. Also reports pt to be getting weaker. Discussed repeat evaluation in the ED and documentation that pt has received all possible COVID treatments but if pt is continuing to decline and not improve a repeat evaluation would be appropriate. Pt's granddaughter states she will relay this to her mother and grandmother with the intention of bringing pt back to the ED. This RN CM notified PRINCESS Michael RN CM
--- NOTE | 2021-06-28 18:04 | CM.ED ---
SW Note SW received phone call from Sales Agent Fire Insurance Director, Ekta Roy. She received a phone call from the family of Igor Everett. Igor was in the ED on 06/21/21. The family reports the followin) Patient is doing worse 2) Patient is not getting better 3) Patient continues to be hypoxic. He was on 4 L when he left the ED but now is at 5L but continues to destat to 89-93% 4) Patient is confused 5) Patient does not make sense 6) Patient is restless at night 7)Patient's legs are more swollen then normal with pitting edema 8) Patient was with to her MD's appointment yesterday and was wearing an attends but went to the bathroom on the seat in the MD's office. Family is concerned that patient may have pneumonia. They are planning to bring him to the ED for evaluation. Plan: To be determined Fernanda ONEAL
== END 2021-06-21 19:50 | disposition home or self-care (01) ==
PROVIDERS: Emergency Provider Emergency Medicine; PCP Student in an Organized Health Care Education/Training Program
DX: U07.1 COVID-19 (principal); J12.82 Pneumonia due to coronavirus disease 2019; J45.909 Unspecified asthma, uncomplicated; R09.02 Hypoxemia; C95.10 Chronic leukemia of unspecified cell type not having achieved remission; E78.5 Hyperlipidemia, unspecified; E11.9 Type 2 diabetes mellitus without complications; K21.9 Gastro-esophageal reflux disease without esophagitis; Z79.84 Long term (current) use of oral hypoglycemic drugs; Z79.82 Long term (current) use of aspirin; Z79.899 Other long term (current) drug therapy
CPT/HCPCS: 71045; 80053; 83605; 84145; 84484; 85025; 87426; 93005; 99285; A4216

== ENCOUNTER 2021-06-28 18:47 | Inpatient (IN) | payer MEDICARE, SELFPAY ==
[2021-06-28 18:47] VITALS: BP 133/67; PULSE 80; RESP 24; TEMP 36.6; O2SAT 87; BMI 26.8
[2021-06-28 18:52] VITALS: BP 133/67; PULSE 80; RESP 24; TEMP 36.6; O2SAT 89
[2021-06-28 19:09] LABS: Mucous, Urine 0 SEEN /hpf (<or=2+); Red Blood Cells-Urine 0 SEEN /hpf (0-5); Squamous Epithelial Cells - UA 0 SEEN /hpf (0-5); White Blood Cells 0 SEEN /hpf (0-5)
[2021-06-28 19:12] LABS: Absolute Lymphocyte Count 0.78 X10^3/uL (0.83-4.51); Absolute Neutrophil Count 19.5 X10^3/uL (2.0-7.7); Basophil% 0.5 % (0-1); Hematocrit 35.4 % (40-54); Hemoglobin 12.7 g/dL (13.0-16.5); Lymphocyte # 0.78 X10^3/ul (0.83-4.51); Lymphocyte % 3.6 % (19-41); Mean Corp Hgb Conc 35.9 g/dL (32-36); Mean Corpuscular Hgb 31.8 pg (27.0-32.0); Mean Corpuscular Volume 88.5 fL (80-94); Mean Platelet Vol. 9.8 fl (6.2-12.0); Monocyte# 0.46 X10^3/uL; Monocyte% 2.1 % (0-10); NRBC Flagged by Analyzer 0 % (0-5); Neutrophil # 19.54 X10^3/uL (2.7-7.7); Neutrophil % 90.4 % (47-70); Platelet Count 131 K/mm3 (150-450); RBC Distribution Width CV 15.1 % (11.6-14.6); RBC Distribution Width SD 48.4 fl (35.1-43.9); White Blood Count 21.6 K/mm3 (4.4-11.0)
--- NOTE | 2021-06-28 19:12 | RAD_ITS ---
INDICATION: SOB EXAMINATION/TECHNIQUE: X-RAY - XR Chest 1 View COMPARISON: 06/21/2021. FINDINGS: Increased bibasilar patchy opacities. The cardiomediastinal silhouette is stable. No pleural effusion or pneumothorax. The osseous structures are unchanged. RAD/Chest 1 View (Portable) IMPRESSION: Increased bibasilar patchy opacities concerning for worsening pneumonia. Electronically Signed: Keith Ernst MD at 19:49 EST Tel , Service support ,
[2021-06-28 19:14] LABS: Color, Urine Yellow (Yellow); Glucose, Dipstick 1000 mg/dl (Normal); Ketone-Dipstick Negative (Negative); Leukocyte Esterase-Dipstick Negative /ul (Negative); Nitrite-Dipstick Negative (Negative); Occult Blood-Urine Negative /ul (Negative); Protein-Dipstick 15 mg/dl (Negative); Urine Bilirubin Dipstick Negative (Negative); Urine Clarity Clear (Clear); Urine Urobilinogen Normal (Normal)
[2021-06-28 19:20] LABS: Bacteria RARE /hpf (None Seen)
--- NOTE | 2021-06-28 19:32 | EDS_ITS ---
HPI History of Present Illness Chief Complaint: Shortness of Breath Narrative Narrative: 85-year-old male presenting with confusion and shortness of breath. Patient had been initially hospitalized with diagnosed with COVID-19 and already done antiviral therapy and dexamethasone. Patient had a return visit to the ER for evaluation due to hypoxia and eventually was discharged home. Today he returns via EMS hypoxic and requiring 4 L of oxygen to maintain O2 saturations of 92%. Patient is alert and awake but disoriented to time. Family did call into the emergency room to state that they could not care for him anymore and that he was very confused. [facility] Medical History Ankle fracture, left BPH (benign prostatic hyperplasia) Bronchitis Chronic leukemia Diabetes GERD (gastroesophageal reflux disease) History of gout History of hyperlipidemia History of non anemic vitamin B12 deficiency History of shingles Radiculopathy of leg Spinal stenosis Home Medications allopurinol 100 mg PO DAILY 04/29/17 [History Last Taken 06/21/21] cholecalciferol (vitamin D3) 5,000 unit PO DAILY 04/29/17 [History Last Taken 06/20/21] cyanocobalamin (vitamin B-12) 1,000 mcg IM Q30D 04/29/17 [History Last Taken Unknown] gabapentin 300 mg PO TID 04/29/17 [History Last Taken 06/21/21] metformin 1,000 mg PO BID 04/29/17 [History Last Taken 06/21/21] omeprazole 20 mg PO DAILY 04/29/17 [History Last Taken 06/21/21] ibrutinib 420 mg PO LUNCH 02/18/19 [History Last Taken 06/20/21] montelukast 10 mg PO QHS 04/14/20 [History Last Taken 06/20/21] albuterol sulfate [Ventolin HFA] 2 puff INHALATION Q4H PRN PRN #1 inhaler 12/11/20 [Rx Last Taken Unknown] Renal Caps 1 cap PO DAILY 06/17/21 [History Last Taken 06/20/21] Restasis 1 drp EACH EYE Q12H 06/17/21 [History Last Taken Unknown] alogliptin [Nesina] 12.5 mg PO DAILY 06/17/21 [History Last Taken 06/21/21] duloxetine 60 mg PO DAILY 06/17/21 [History Last Taken 06/21/21] hydroxyzine HCl 25 mg PO TID PRN 06/17/21 [History Last Taken Unknown] multivitamin 1 tab PO DAILY 06/17/21 [History Last Taken 06/20/21] oxycodone-acetaminophen 1 tab PO BID PRN 06/17/21 [History Last Taken Unknown] aspirin [Aspirin Childrens] 81 mg PO DAILY 30 Days #30 tab 06/19/21 [Rx Last Taken Unknown] glimepiride [Amaryl] 4 mg PO DAILY 30 Days #60 tab 06/19/21 [Rx Last Taken Unknown] dexamethasone 6 mg PO DAILY 06/21/21 [History Last Taken 06/21/21] terazosin 1 mg PO QHS 06/21/21 [History Last Taken 06/20/21] Allergy/AdvReac Type Severity Reaction Status Date / Time Apcwlkr-XZZ-ClC Reductase Allergy Pain in Verified 06/21/21 12:09 Inhibitor joints [Axbuocm-Gxx-Vit Reductase Inhibitor] prednisone AdvReac Nausea/Vom/ Verified 06/21/21 12:09 Diarrhea Family History Mother Cancer skin Father Colon cancer Sister Cancer Brother Heart disease Social History Smoking Status: Never smoker ROS ROS ED Review of Systems ROS Unobtainable: due to mental status EXAM Physical Exam Const Vital Signs: 06/28/21 18:47 06/28/21 18:52 06/28/21 20:41 Temperature 97.8 F 97.8 F 97.8 F Temperature Source Temporal Temporal Temporal Pulse Rate 80 80 74 Respiratory Rate 24 H 24 H 23 H Blood Pressure 133/67 H 133/67 H 146/73 H Blood Pressure Mean 89 89 97 Pulse Ox 87 89 93 Oxygen Delivery Method Nasal Cannula Nasal Cannula Nasal Cannula Oxygen Flow Rate (L/min) 4 5 5 Positive unkempt Constitutional Narrative: Noted to be on 5 L nasal cannula. Patient satting 93% on my evaluation. General Appearance ED: unkempt; Negative for pallor HEENT Reports dry mucous membranes atraumatic Mouth ED: Yes dry mucous membranes Mouth: dry mucous membranes Eyes PERRL and EOMs intact bilaterally Neck no lymphadenopathy and supple Resp Auscultation: diminished lung sounds Cardio regular rate and regular rhythm GI non-tender Palpation: soft Neuro CN's II-XII intact bilaterally Sensorium / Orientation: alert and confused; Negative for oriented to time Psych Psych Narrative: Confused Appearance: unkempt Skin General Skin Exam: Negative for jaundice or pallor MDM MDM MDM Narrative Medical decision making narrative: Patient resenting with confusion and shortness of breath. He is currently on 5 L of oxygen maintaining a sat of 93%. Sepsis work-up ordered. Patient EKG which shows a sinus rhythm at 75 bpm without sign of ischemic change on my interpretation. There is a first-degree AV block. Chest x-ray my interpretation is bilateral pneumonia which is worse than previously. Patient has a leukocytosis of 21.6 thousand. There is a left shift. At this point patient was given vancomycin and Zosyn patient already pancultured. Urinalysis and urine culture are pending as well. Creatinine is normal at 1.06. The patient has a new finding of hyponatremia at 118. Lactic acid was elevated at 2.2. Urinalysis shows rare bacteria without any contamination. There is no elevated leukocyte Estrace. Patient is already treated with vancomycin and Zosyn. Will wait for culture. BNP is normal at 87.6. Given patient's worsening presentation I believe he is bacterial pneumonia and he is septic from this. Patient admitted to hospitalist. Impression: 1. Hypoxic respiratory failure 2. Hospital-acquired pneumonia 3. Leukocytosis 4. Hyponatremia 5. Sepsis Lab Data Attestation: I reviewed the patient's lab results. Labs: Laboratory Results - last 24 hr 06/28/21 06/28/21 06/28/21 19:01 19:02 19:02 WBC 21.6 H RBC 4.00 L Hgb 12.7 L Hct 35.4 L MCV 88.5 MCH 31.8 MCHC 35.9 RDW Std Deviation 48.4 H RDW Coeff of Samreen 15.1 H Plt Count 131 L MPV 9.8 Immature Gran % (Auto) 3.400 H Neut % (Auto) 90.4 H Lymph % (Auto) 3.6 L Coffee % (Auto) 2.1 Eos % (Auto) 0.0 Baso % (Auto) 0.5 Absolute Neuts (auto) 19.5 H Absolute Lymphs (auto) 0.78 L Nucleated RBC % 0 PT INR Sodium 118 L* Potassium 5.0 Chloride 83 L Carbon Dioxide 23.0 Anion Gap 12 BUN 20 H Creatinine 1.06 Estim Creat Clear Calc 50.19 Est GFR (MDRD) Af Amer 86 Est GFR (MDRD) Non-Af 71 BUN/Creatinine Ratio 18.9 Glucose 393 H Lactic Acid Calcium 9.0 Total Bilirubin 0.90 AST 16 ALT 29 Alkaline Phosphatase 112 Troponin I High Sens 10 B-Natriuretic Peptide Total Protein 6.0 L Albumin 2.3 L Globulin 3.7 Albumin/Globulin Ratio 0.6 L Urine Color Yellow Urine Clarity Clear Urine pH 7.0 Ur Specific [place] 1.010 Urine Protein 15 H Urine Glucose (UA) 1000 H Urine Ketones Negative Urine Occult Blood Negative Urine Nitrite Negative Urine Bilirubin Negative Urine Urobilinogen Normal Ur Leukocyte Esterase Negative Urine RBC 0 SEEN Urine WBC 0 SEEN Ur Squamous Epith Cells 0 SEEN Urine Bacteria RARE Urine Mucus 0 SEEN 06/28/21 06/28/21 06/28/21 19:02 19:02 20:00 WBC RBC Hgb Hct MCV MCH MCHC RDW Std Deviation RDW Coeff of Samreen Plt Count MPV Immature Gran % (Auto) Neut % (Auto) Lymph % (Auto) Coffee % (Auto) Eos % (Auto) Baso % (Auto) Absolute Neuts (auto) Absolute Lymphs (auto) Nucleated RBC % PT 13.5 INR 1.1 Sodium Potassium Chloride Carbon Dioxide Anion Gap BUN Creatinine Estim Creat Clear Calc Est GFR (MDRD) Af Amer Est GFR (MDRD) Non-Af BUN/Creatinine Ratio Glucose Lactic Acid 2.2 H* Calcium Total Bilirubin AST ALT Alkaline Phosphatase Troponin I High Sens B-Natriuretic Peptide 87.6 Total Protein Albumin Globulin Albumin/Globulin Ratio Urine Color Urine Clarity Urine pH Ur Specific [place] Urine Protein Urine Glucose (UA) Urine Ketones Urine Occult Blood Urine Nitrite Urine Bilirubin Urine Urobilinogen Ur Leukocyte Esterase Urine RBC Urine WBC Ur Squamous Epith Cells Urine Bacteria Urine Mucus ABG Data ABG results: ABG 06/28/21 21:06 Specimen Type ART Sample Site R Radial pH 7.48 H Bicarbonate Actual 22.1 Total CO2 23 Base Excess -1 O2 Saturation 93 L ABG pCO2 29.8 L ABG pO2 60 L Alex Test Positive O2 Delivery Device Cannula Liter Flow 5.0 Radiography Diagnostic Testing: Clinical Impression(s) from Imaging Studies Chest X-Ray 06/28/21 19:12 IMPRESSION: Increased bibasilar patchy opacities concerning for worsening pneumonia. Electronically Signed: Keith Ernst MD at 19:49 EST Tel , Service support , Discharge Plan Triage Chief Complaint: Shortness of Breath ED Provider: Armando Iqbal Dx/Rx/DC Orders Primary Care Provider: Daniel Camejo
[2021-06-28 19:33] LABS: BNP,B-Type NATRIURETIC PEPTIDE 87.6 pg/mL (0-100)
--- NOTE | 2021-06-28 19:35 | EKG12_ITS ---
Test Reason : DYSRHYTHMIA Blood Pressure : / mmHG Vent. Rate : 075 BPM Atrial Rate : 075 BPM P-R Int : 214 ms QRS Dur : 098 ms QT Int : 368 ms P-R-T Axes : 052 021 041 degrees QTc Int : 410 ms Sinus rhythm with 1st degree A-V block Otherwise normal ECG Confirmed by ARY SIMON, JUNE ([id number]), assistant production editor JOSSY BUNDY ([id number]) on 07/04/2021 12:04:51 PM Referred By: MEKHI Confirmed By:JUNE MCALLISTER MD
[2021-06-28 19:37] LABS: ALB/GLOB Ratio 0.6 RATIO (0.9-2.4); AST(SGOT) 16 U/L (15-37); Alanine Aminotransfer ALT/SGPT 29 U/L (16-61); Albumin, Serum 2.3 g/dL (3.2-5.0); Alkaline Phosphatase 112 U/L (45-117); Anion Gap 12 (5-15); BUN 20 mg/dL (7-18); BUN/Creat Ratio 18.9 RATIO (10-20); Chloride 83 mmol/L (98-107); Creatinine, Serum 1.06 mg/dL (0.70-1.30); EST Glomerular Filtration Rate 71 mL/min (>60); Est Glom Filt Rate - Afr Amer 86 mL/min (>60); Estimated Creatinine Clearance 50.19 ml/min; Globulin 3.7 g/dL (2.2-4.2); Glucose 393 mg/dL (74-106); Sodium Level 118 mmol/L (136-145); Troponin-I HS 10 pg/mL (3.0-78.0)
[2021-06-28 19:39] LABS: International Normalized Ratio 1.1; Prothrombin Time (Protime)PT. 13.5 SECONDS (11.7-14.9)
[2021-06-28 20:33] LABS: Lactic Acid 2.2 mmol/L (0.4-1.9)
[2021-06-28 20:41] VITALS: BP 146/73; PULSE 74; RESP 23; TEMP 36.6; O2SAT 93
[2021-06-28 21:11] LABS: Allen Test Positive; Base Excess -1 mmol/L (-2 to +2); Bicarbonate 22.1 mmol/L (22-26); Blood Gas Specimen Type ART; O2 Delivery Device Cannula; PO2 60 mmHG (75-100); SITE R Radial; SO2 93 % (95-99); Total Carbon Dioxide 23 mmol/L; pCO2 29.8 mmHg (35-45); pH 7.48 (7.35-7.45)
[2021-06-28 21:35] VITALS: BP 146/73; PULSE 74; RESP 23; TEMP 36.6; O2SAT 93
--- NOTE | 2021-06-28 21:38 | HP.PCM.HOS_ITS ---
HPI - General General Date of Admission: 06/28/21 HPI Narrative Majority of history was taken from family, given the patient's mental status ELENA GANDARA, is a 85 M who presents with week-long confusion and some shortness of breath and a dry cough. Patient was hospitalized here for COVID-19 and completed remdesivir and dexamethasone and discharged home without requiring home oxygen, on Jun 19. He did present to the ED and was discharged home on oxygen last week. Since then the patient has become more confused at home and eating less, and not drinking much. They were concerned about his legs and it appeared fluid was building up. They did not record any fevers at home. The family notes that they cannot care for him anymore at this time. Granddaughter at bedside states that they have held ibrutinib as per the recommendation of the oncologist. CXR showed Increased bibasilar patchy opacities concerning for worsening pneumonia.WBC 11 to 21.6, and hypoxic requiring 4 liters NASAL CANNULA, to 92%. He was also given antibiotics Zosyn and vancomycin PFSH Medical History Ankle fracture, left BPH (benign prostatic hyperplasia) Bronchitis Chronic leukemia Diabetes GERD (gastroesophageal reflux disease) History of gout History of hyperlipidemia History of non anemic vitamin B12 deficiency History of shingles Radiculopathy of leg Spinal stenosis Home Medications allopurinol 100 mg PO DAILY 04/29/17 [History Last Taken 06/21/21] cholecalciferol (vitamin D3) 5,000 unit PO DAILY 04/29/17 [History Last Taken 1 08/21/20] cyanocobalamin (vitamin B-12) 1,000 mcg IM Q30D 04/29/17 [History Last Taken Unknown] gabapentin 300 mg PO TID 04/29/17 [History Last Taken 06/21/21] metformin 1,000 mg PO BID 04/29/17 [History Last Taken 06/21/21] omeprazole 20 mg PO DAILY 04/29/17 [History Last Taken 06/21/21] ibrutinib 420 mg PO LUNCH 02/18/19 [History Last Taken 06/20/21] montelukast 10 mg PO QHS 04/14/20 [History Last Taken 06/20/21] albuterol sulfate [Ventolin HFA] 2 puff INHALATION Q4H PRN PRN #1 inhaler 12/11/20 [Rx Last Taken Unknown] Renal Caps 1 cap PO DAILY 06/17/21 [History Last Taken 06/20/21] Restasis 1 drp EACH EYE Q12H 06/17/21 [History Last Taken Unknown] alogliptin [Nesina] 12.5 mg PO DAILY 06/17/21 [History Last Taken 06/21/21] duloxetine 60 mg PO DAILY 06/17/21 [History Last Taken 06/21/21] hydroxyzine HCl 25 mg PO TID PRN 06/17/21 [History Last Taken Unknown] multivitamin 1 tab PO DAILY 06/17/21 [History Last Taken 06/20/21] oxycodone-acetaminophen 1 tab PO BID PRN 06/17/21 [History Last Taken Unknown] aspirin [Aspirin Childrens] 81 mg PO DAILY 30 Days #30 tab 06/19/21 [Rx Last Taken Unknown] glimepiride [Amaryl] 4 mg PO DAILY 30 Days #60 tab 06/19/21 [Rx Last Taken Unknown] dexamethasone 6 mg PO DAILY 06/21/21 [History Last Taken 06/21/21] terazosin 1 mg PO QHS 06/21/21 [History Last Taken 06/20/21] Allergy/AdvReac Type Severity Reaction Status Date / Time Biscivq-WTJ-EmE Reductase Allergy Pain in Verified 06/21/21 12:09 Inhibitor joints [Nngwgwe-Bsl-Zff Reductase Inhibitor] prednisone AdvReac Nausea/Vom/ Verified 06/21/21 12:09 Diarrhea Family History Mother Cancer skin Father Colon cancer Sister Cancer Brother Heart disease Family History unable to obtain Surgical History unable to obtain Social History Smoking Status: Never smoker ROS ROS Narrative + anorexia, and sob, and swelling in legs No fevers chills, chest pain, no falls, syncope, dysuria, hematuria, no seizures. Unable to obtain full review due to altered mental status. Vital Signs Vital Signs Vital Signs: 06/28/21 18:47 06/28/21 18:52 06/28/21 20:41 Temperature 97.8 F 97.8 F 97.8 F Temperature Source Temporal Temporal Temporal Pulse Rate 80 80 74 Respiratory Rate 24 H 24 H 23 H Blood Pressure 133/67 H 133/67 H 146/73 H Blood Pressure Mean 89 89 97 Pulse Ox 87 89 93 Oxygen Delivery Method Nasal Cannula Nasal Cannula Nasal Cannula Oxygen Flow Rate (L/min) 4 5 5 06/28/21 21:35 Temperature 97.8 F Temperature Source Temporal Pulse Rate 74 Respiratory Rate 23 H Blood Pressure 146/73 H Blood Pressure Mean 97 Pulse Ox 93 Oxygen Delivery Method Nasal Cannula Oxygen Flow Rate (L/min) Weight Weight: 176 lb 5.917 oz Body Mass Index (BMI) 26.8 Physical Exam Const alert and no apparent distress General Appearance: cooperative Orientation / Consciousness: confused HEENT normocephalic and head/scalp atraumatic HEENT Narrative: scab on right ear Resp normal respiratory effort Resp Narrative: Course, R>L without wheezing. Appears in no apparent distress. Cardio regular rate and regular rhythm GI normal to inspection, nondistended, normoactive bowel sounds Extremity normal to inspection Skin no rashes or lesions noted Psych Psych Narrative: Poor insight. unkemp Results Lab / Micro Data Result Diagrams: 06/28/21 19:02 06/28/21 19:02 Labs: Laboratory Results - last 24 hr 06/28/21 19:01: Urine Color Yellow, Urine Clarity Clear, Urine pH 7.0, Ur Specific [place] 1.010, Urine Protein 15 H, Urine Glucose (UA) 1000 H, Urine Ketones Negative, Urine Occult Blood Negative, Urine Nitrite Negative, Urine Bilirubin Negative, Urine Urobilinogen Normal, Ur Leukocyte Esterase Negative, Urine RBC 0 SEEN, Urine WBC 0 SEEN, Ur Squamous Epith Cells 0 SEEN, Urine Bacteria RARE, Urine Mucus 0 SEEN 06/28/21 19:02: WBC 21.6 H, RBC 4.00 L, Hgb 12.7 L, Hct 35.4 L, MCV 88.5, MCH 31.8, MCHC 35.9, RDW Std Deviation 48.4 H, RDW Coeff of Samreen 15.1 H, Plt Count 131 L, MPV 9.8, Immature Gran % (Auto) 3.400 H, Neut % (Auto) 90.4 H, Lymph % (Auto) 3.6 L, [place] % (Auto) 2.1, Eos % (Auto) 0.0, Baso % (Auto) 0.5, Absolute Neuts (auto) 19.5 H, Absolute Lymphs (auto) 0.78 L, Nucleated RBC % 0 06/28/21 19:02: Sodium 118 L*, Potassium 5.0, Chloride 83 L, Carbon Dioxide 23.0, Anion Gap 12, BUN 20 H, Creatinine 1.06, Estim Creat Clear Calc 50.19, Est GFR (MDRD) Af Amer 86, Est GFR (MDRD) Non-Af 71, BUN/Creatinine Ratio 18.9, Glucose 393 H, Calcium 9.0, Total Bilirubin 0.90, AST 16, ALT 29, Alkaline Phosphatase 112, Troponin I High Sens 10, Total Protein 6.0 L, Albumin 2.3 L, Globulin 3.7, Albumin/Globulin Ratio 0.6 L 06/28/21 19:02: B-Natriuretic Peptide 87.6 06/28/21 19:02: PT 13.5, INR 1.1 06/28/21 20:00: Lactic Acid 2.2 H* ABG Data ABG results: ABG 06/28/21 21:06 Specimen Type ART Sample Site R Radial pH 7.48 H Bicarbonate Actual 22.1 Total CO2 23 Base Excess -1 O2 Saturation 93 L ABG pCO2 29.8 L ABG pO2 60 L Alex Test Positive O2 Delivery Device Cannula Liter Flow 5.0 Radiology Impression Chest X-Ray 06/28/21 19:12 IMPRESSION: Increased bibasilar patchy opacities concerning for worsening pneumonia. Electronically Signed: Keith Ernst MD at 19:49 EST Tel , Service support , Assessment & Plan Assessment/Plan (1) Hypoxemia: (2) Pneumonia: (3) Hyponatremia: (4) Anorexia: PLAN: 1. Acute hypoxic respiratory failure Concern for pneumonia - Meets sepsis criteria - Stable at this time, on NC - s/p Remdesivir and Dexamethasone. ?Patient admitted to med-surg receiving supplemental oxygen. -PEP and incentive spirometry -Duonebs while awake. -Check lactic acidosis 2.2 in 6-8 hours -Vanc and Zosyn given concern for bacterial pneumonia and worsening white count, continue at this time. Will continue with broad-spectrum in light of recent hospitalization -Avoid IV fluids were possible given concern for volume overload. 2. CLL ?Patient is ibrutinib, which has been held at home starting this week and we will continue to hold 3. Diabetes mellitus type II with hyperglycemia -patient's oral hypoglycemics held, except for glimepiride which will be continued. Placed on long acting insulin 10 u nightly, Accu-Cheks a.c. and at bedtime and covered with sliding scale insulin 4. GERD ?Patient is on PPI did continue 5. Hypertension - Blood pressure controlled, home medications continued with dose adjustment as needed 6. Dyslipidemia ?Patient is on gemfibrozil this was held on admission 7. Chronic pain syndrome ?Patient is on gabapentin, duloxetine -Tylenol PRN 8. Gout ?On allopurinol did continue 9. Moderate hyponatremia ? Psuedohyponatramia due to glucose vs SIADH as a result of patient underlying lung condition. Requested for urine electrolytes --Also suspect sodium 118 due to significant hyperglycemia and will treat blood sugars --Hold on 3% saline unless failure to improve via above. 10. DVT prophylaxis ?Lovenox 40 mg SC daily Continue diet Full code Lovenox 40 mg Mynor Callahan Charges/Coding Visit Charges Inpatient E&M: 33017 Init Hosp L3
[2021-06-28 21:41] VITALS: BMI 26.1
[2021-06-28 21:52] VITALS: BP 147/78; PULSE 78; RESP 20; TEMP 36; O2SAT 92
--- NOTE | 2021-06-28 22:20 | PCS.PANDOC ---
PANDEMIC DOCUMENTATION INITIATED: Date: 02/12/2021 Time: 190
[2021-06-29] VITALS (10 sets, daily range): BP systolic 122–160; BP diastolic 42–77; PULSE 65–74; RESP 16–20; TEMP 36.6–36.7; O2SAT 92–96
[2021-06-29 00:04] LABS: Reflex Lactate? Y
[2021-06-29] MEDS: Insulin Lispro 100 UNIT/ML INSULN.PEN SC ×5 (00:04→20:20)
[2021-06-29] MEDS: 0.9% Saline Lock 10 ML Syringe IV (00:05)
[2021-06-29] MEDS: Montelukast 10 MG Tablet PO ×2 (00:06→20:19)
[2021-06-29] MEDS: Doxazosin 1 MG Tablet PO ×2 (00:06→20:19)
[2021-06-29] MEDS: Gabapentin 300 MG Capsule PO ×4 (00:06→20:19)
[2021-06-29 00:21] LABS: Bedside Glucose 346 mg/dL (70-110)
--- NOTE | 2021-06-29 00:27 | PCM.RX.CS ---
Consult Pharmacy has been consulted to manage selected antiobiotic: Vancomycin Type of Consult: New start Suspected Infection: Sepsis Labs: Sodium 118 mmol/L (136-145) L* 06/28/21 19:02 Potassium 5.0 mmol/L (3.5-5.1) 06/28/21 19:02 Chloride 83 mmol/L (98-107) L 06/28/21 19:02 Carbon Dioxide 23.0 mmol/L (21.0-32.0) 06/28/21 19:02 Anion Gap 12 (5-15) 06/28/21 19:02 BUN 20 mg/dL (7-18) H 06/28/21 19:02 Creatinine 1.06 mg/dL (0.70-1.30) 06/28/21 19:02 Est GFR (MDRD) Af Amer 86 mL/min (>60) 06/28/21 19:02 Est GFR (MDRD) Non-Af 71 mL/min (>60) 06/28/21 19:02 BUN/Creatinine Ratio 18.9 RATIO (10-20) 06/28/21 19:02 Glucose 393 mg/dL (74-106) H 06/28/21 19:02 Goal Trough: 15-20 mcg/mL Pharmacy Plan for Drug Dosing: Pharmacy Service will continue to monitor and adjust dosing as required. Medications Vancomycin HCl () 500 mg in 100 mls @ 100 mls/hr IV Q12H ROX Discontinued Medications Vancomycin HCl 1,250 mg/ (Sodium Chloride) 275 mls @ 167 mls/hr IV X1 ONE Stop: 06/28/21 21:02 Last Admin: 06/28/21 22:09 Dose: Infused Documented by: Follow-Up Labs: Trough Vancomycin Labs to be done on [date and time ordered]: 06/30 @ 6906
[2021-06-29 03:14] LABS: Lactic Acid 2.3 mmol/L (0.4-1.9)
--- NOTE | 2021-06-29 03:18 | PCS.PANDOC ---
PANDEMIC DOCUMENTATION INITIATED: Date: 02/12/2021 Time: 190
[2021-06-29] MEDS: Piperacil/Tazobactam 3.375 GM/50 ML ML IV ×3 (06:40→21:34)
[2021-06-29] MEDS: Pantoprazole Sodium 20 MG Tablet PO ×2 (06:40→08:38)
[2021-06-29 07:00] LABS: Absolute Lymphocyte Count 1.21 X10^3/uL (0.83-4.51); Absolute Neutrophil Count 14.2 X10^3/uL (2.0-7.7); Basophil% 0.6 % (0-1); Hematocrit 33.5 % (40-54); Hemoglobin 11.7 g/dL (13.0-16.5); Lymphocyte # 1.21 X10^3/ul (0.83-4.51); Lymphocyte % 7.2 % (19-41); Mean Corp Hgb Conc 34.9 g/dL (32-36); Mean Corpuscular Volume 88.9 fL (80-94); Mean Platelet Vol. 9.9 fl (6.2-12.0); Monocyte# 0.65 X10^3/uL; Monocyte% 3.9 % (0-10); NRBC Flagged by Analyzer 0.1 % (0-5); Neutrophil # 14.17 X10^3/uL (2.7-7.7); Platelet Count 122 K/mm3 (150-450); RBC Distribution Width CV 15.2 % (11.6-14.6); RBC Distribution Width SD 48.9 fl (35.1-43.9); Red Blood Count 3.77 M/mm3 (4.6-6.2); White Blood Count 16.9 K/mm3 (4.4-11.0)
[2021-06-29 07:05] LABS: Bedside Glucose 248 mg/dL (70-110)
[2021-06-29 07:34] LABS: Anion Gap 9 (5-15); BUN 20 mg/dL (7-18); BUN/Creat Ratio 22.9 RATIO (10-20); Calcium,Total 8.9 mg/dL (8.5-10.1); Chloride 87 mmol/L (98-107); Creatinine, Serum 0.87 mg/dL (0.70-1.30); EST Glomerular Filtration Rate 89 mL/min (>60); Est Glom Filt Rate - Afr Amer 107 mL/min (>60); Estimated Creatinine Clearance 59.09 ml/min; Glucose 259 mg/dL (74-106); Potassium 4.6 mmol/L (3.5-5.1); Sodium Level 121 mmol/L (136-145)
[2021-06-29 08:24] LABS: Procalcitonin 0.05 ng/mL (0.00-0.09)
[2021-06-29] MEDS: Enoxaparin 40 MG/0.4 ML Syringe SC (08:37)
[2021-06-29] MEDS: Glimepiride 4 MG Tablet PO (08:38)
[2021-06-29] MEDS: Allopurinol 100 MG Tablet PO (08:38)
[2021-06-29] MEDS: Aspirin 81 MG TAB.CHEW PO ×3 (08:38)
[2021-06-29] MEDS: DULoxetine Hcl 60 MG Capsule PO (08:39)
[2021-06-29 10:18] LABS: Osmolality, Serum 262 mOsm/KG (280-301)
[2021-06-29] MEDS: Vancomycin IV 500 MG/100 ML BAG 100 MG IV ×2 (11:22→20:17)
[2021-06-29 11:26] LABS: Bedside Glucose 217 mg/dL (70-110)
--- NOTE | 2021-06-29 12:05 | PCM.PN.HOSP ---
Subjective Subjective No fever. Patient is not responding to simple question. Opens eyes. Objective Data Objective Data Vital Signs: Vital Signs Temp Pulse Resp BP Pulse Ox 98.0 F 67 16 129/42 H 92 06/29/21 08:40 06/29/21 08:40 06/29/21 08:40 06/29/21 08:40 06/29/21 08:40 Oxygen Flow Rate (L/min) 2 Oxygen Delivery Method Nasal Cannula Weight: 165 lb 9.074 oz Body Mass Index (BMI) 26.1 Intake & Output: Intake and Output for Last 24 Hours 06/27/21 06/28/21 06/29/21 23:59 23:59 23:59 Intake Total 294.93 / 294.93 50 / 50 Balance 294.93 / 294.93 50 / 50 Medical Nutrition Assessment Dietitian: Malnutrition Criteria Met Start: 06/29/21 11:32 Freq: Status: Active Protocol: Document 06/29/21 11:32 AG (Rec: 06/29/21 11:32 [id number]) Nutrition Malnutrition Evidence of Malnutrition Exists Yes Malnutrition (severe): Acute Illness/Injury Evidenced By Suboptimal Energy Intake ( Severe),Weight Loss (Severe) Clinical Problem Acute Disease or Injury Related Malnutrition Etiology severe, acute malnutrition r/t inadequate energy intake w/ acute illness Signs/Symptoms as evidenced by unintentional wt loss of 11.5#/6.5% < 2 weeks; estimated PO intake meeting <75% of estimated energy needs >1 week Status Active Problem Recommendation Dietitian Recommendations/Changes continue regular diet d/t malnutrition; will fortify foods when possible and provide fortified pudding or magic cup w/ meals for additional calories/protein if consumed. Continue fluid restriction per hospitalist until etiology of hyponatremia is determined. Lab / Micro Data Result Diagrams: 06/29/21 06:24 06/29/21 06:24 Labs: Laboratory Results - last 24 hr 06/28/21 19:01: Urine Color Yellow, Urine Clarity Clear, Urine pH 7.0, Ur Specific Diana 1.010, Urine Protein 15 H, Urine Glucose (UA) 1000 H, Urine Ketones Negative, Urine Occult Blood Negative, Urine Nitrite Negative, Urine Bilirubin Negative, Urine Urobilinogen Normal, Ur Leukocyte Esterase Negative, Urine RBC 0 SEEN, Urine WBC 0 SEEN, Ur Squamous Epith Cells 0 SEEN, Urine Bacteria RARE, Urine Mucus 0 SEEN 06/28/21 19:02: WBC 21.6 H, RBC 4.00 L, Hgb 12.7 L, Hct 35.4 L, MCV 88.5, MCH 31.8, MCHC 35.9, RDW Std Deviation 48.4 H, RDW Coeff of Samreen 15.1 H, Plt Count 131 L, MPV 9.8, Immature Gran % (Auto) 3.400 H, Neut % (Auto) 90.4 H, Lymph % (Auto) 3.6 L, [place] % (Auto) 2.1, Eos % (Auto) 0.0, Baso % (Auto) 0.5, Absolute Neuts (auto) 19.5 H, Absolute Lymphs (auto) 0.78 L, Nucleated RBC % 0 06/28/21 19:02: Sodium 118 L*, Potassium 5.0, Chloride 83 L, Carbon Dioxide 23.0, Anion Gap 12, BUN 20 H, Creatinine 1.06, Estim Creat Clear Calc 50.19, Est GFR (MDRD) Af Amer 86, Est GFR (MDRD) Non-Af 71, BUN/Creatinine Ratio 18.9, Glucose 393 H, Calcium 9.0, Total Bilirubin 0.90, AST 16, ALT 29, Alkaline Phosphatase 112, Troponin I High Sens 10, Total Protein 6.0 L, Albumin 2.3 L, Globulin 3.7, Albumin/Globulin Ratio 0.6 L 06/28/21 19:02: B-Natriuretic Peptide 87.6 06/28/21 19:02: PT 13.5, INR 1.1 06/28/21 20:00: Lactic Acid 2.2 H* 06/29/21 00:01: POC Glucose 346 H 06/29/21 01:50: Lactic Acid 2.3 H* 06/29/21 06:24: WBC 16.9 H, RBC 3.77 L, Hgb 11.7 L, Hct 33.5 L, MCV 88.9, MCH 31.0, MCHC 34.9, RDW Std Deviation 48.9 H, RDW Coeff of Samreen 15.2 H, Plt Count 122 L, MPV 9.9, Immature Gran % (Auto) 4.300 H, Neut % (Auto) 84.0 H, Lymph % (Auto) 7.2 L, [place] % (Auto) 3.9, Eos % (Auto) 0.0, Baso % (Auto) 0.6, Absolute Neuts (auto) 14.2 H, Absolute Lymphs (auto) 1.21, Nucleated RBC % 0.1 06/29/21 06:24: Sodium 121 L, Potassium 4.6, Chloride 87 L, Carbon Dioxide 25.0, Anion Gap 9, BUN 20 H, Creatinine 0.87, Estim Creat Clear Calc 59.09, Est GFR (MDRD) Af Amer 107, Est GFR (MDRD) Non-Af 89, BUN/Creatinine Ratio 22.9 H, Glucose 259 H, Calcium 8.9 06/29/21 06:24: Procalcitonin 0.05 06/29/21 06:24: Serum Osmolality 262 L 06/29/21 06:36: POC Glucose 248 H 06/29/21 10:50: POC Glucose 217 H ABG Data ABG results: ABG 06/28/21 21:06 Specimen Type ART Sample Site R Radial pH 7.48 H Bicarbonate Actual 22.1 Total CO2 23 Base Excess -1 O2 Saturation 93 L ABG pCO2 29.8 L ABG pO2 60 L Alex Test Positive O2 Delivery Device Cannula Liter Flow 5.0 Radiography Diagnostic Testing: Radiology Impression Chest X-Ray 06/28/21 19:12 IMPRESSION: Increased bibasilar patchy opacities concerning for worsening pneumonia. Electronically Signed: Keith Ernst MD at 19:49 EST Tel , Service support , Physical Exam Narrative As per nursing staff, patient is confused and disoriented pulling out his IV lines. General: Lethargic, obtunded. Not responding to simple question, nonverbal. HEENT: Atraumatic, PERRLA, EOMI, Normocephalic Oral: No Gingival or Mucosal Lesions/ Ulcerations Neck: Supple, No JVD, Negative Carotid Bruits Lungs: Air entry diminished in bilateral lung bases. Bilateral coarse crepitations. Cardiovascular: Regular rate, Regular Rhythm, Normal S1, Normal S2, No murmurs Abdomen: Bowel Sounds Present, Soft, Non Tender, Non-Distended : No renal angle tenderness. No suprapubic tenderness. Extremities: No edema, Capillary Refill Less than 3 Seconds Skin: Bruises over knees. Musculoskeletal: bruise and a scab over knees. ROM restricted. Low functional capacity. Neurological: Cranial nerves II-XII grossly intact, DTR 2+/4 and Symmetrical, Neuro grossly intact Psych/Mental Status: Confused, disoriented. Assessment & Plan Assessment/Plan (1) Hypoxemia: (2) Pneumonia: (3) Hyponatremia: (4) Anorexia: PLAN: 1. Acute hypoxic respiratory failure due to bilateral COVID-19 pneumonia: Patient had remdesivir and dexamethasone. Had Covid infection and was admitted before and discharged on June 19, 2021. Patient more confused and disoriented with low functional capacity and decreased appetite. Lactic acid 2.2. On vanc and Zosyn given concern for bacterial pneumonia and worsening white count. 2. CLL ?Patient is ibrutinib, which has been held at home started this week and we will continue to hold 3. Diabetes mellitus type II with hyperglycemia -patient's oral hypoglycemics held, except for glimepiride which will be continued. Placed on long acting insulin 10 u nightly, Accu-Cheks a.c. and at bedtime and covered with sliding scale insulin 4. GERD ?Patient is on PPI did continue 5. Hypertension - Blood pressure controlled, home medications continued with dose adjustment as needed 6. Dyslipidemia ?Patient is on gemfibrozil this was held on admission 7. Chronic pain syndrome ?Patient is on gabapentin, duloxetine -Tylenol PRN 8. Gout ?On allopurinol did continue 9. Moderate hyponatremia ?Normovolemic hypotonic hyponatremia due to glucose vs SIADH as a result of patient underlying lung condition. Urine electrolytes ordered. Serum osmolality low --Serum sodium 121 Consult nephrology 10. Encephalopathy unclear acute or chronic possible dementia: Most probably due to metabolic or infectious. ABG 7.4 02/27/60 on 5 L of oxygeN. Try to correct underlying disorder DVT prophylaxis ?Lovenox 40 mg SC daily Continue diet Full code Lovenox 40 mg Mynor Callahan Charges/Coding Visit Charges Inpatient E&M: 33516 Subs Hosp L2
--- NOTE | 2021-06-29 13:39 | CASEMGMT ---
Readmission Note: Index: 06/17 thru 06/19/21 for COVID. Pt was discharged home with family support and previous DME including cane, grab bars, and BGM w/supplies. Pt resides with his and his daughter lives in the basement. Pt had been independent with ADLS prior to this index admission. ED visit 06/21/21: Pt noted to be hypoxic and discharged back home with Home O2 at 4l/min but was increased to 5l/min per RN CM guidance during follow-up call. Redmission: 06/28 Pneumonia, acute hypoxic respiratory failure. Pt noted by family to have increased confusion and hypoxia at home with O2 increased to 5l/min and increased weakness. Pt was scheduled to follow-up with his PCP Dr. Camejo on Friday, 07/03 at noon. They had been in contact with Dr. Camejo's office since ED visit and nebulizer treatments had been ordered. Pt's daughter and granddaughter have assisted with ADLs and new onset incontinence care. This RN MICHELLE spoke with pt's Ebony regarding discharge plan s/p this visit. PT/OT is ordered but evaluations pending. Nursing noting pt to be oriented to person only. Discussed potential discharge dispositions including home health and SNF. Pt's states she and her daughter have not discussed a plan at this point in time. Will follow-up on Friday s/p PT/OT evaluations and progression of medical condition for discharge disposition determination. Valentine Roy RN CM
--- NOTE | 2021-06-29 13:50 | CPS ---
started by nursing
[2021-06-29 17:46] LABS: Bedside Glucose 165 mg/dL (70-110)
--- NOTE | 2021-06-29 20:47 | PCM.PN.BLA ---
Progress Note Consult for hyponatremia is acknowledged. The patient is a 85-year-old man who was recently admitted to the hospital for COVID-19 pneumonia. He was discharged last week on home oxygen. The patient returns with confusion, anorexia, and failure to thrive at home. During work-up in the emergency department, the patient was found to have a serum sodium of 118 mmol/L. Serum sodium has improved to 121 mmol/L today, but this is still below his usual baseline serum sodium. During the last admission, serum sodium was between 130 to 132 mmol/L. Suspect that the patient has hypoosmolar hypotonic hyponatremia due to decreased intake. Another possibility is hyperglycemia induced hyponatremia although serum sodium would still be below 135 even after correcting for hyperglycemia. Another possibility would be hypoosmolar isotonic hyponatremia due to SIADH which could be related to recent pulmonary infection. However, this is a diagnosis of exclusion. Although possible, hyponatremia due to SNRI such as duloxetine is rare. Okay to continue duloxetine for now. I will check urine sodium, urine osmolality, serum osmolality. We will also check TSH and a.m. cortisol levels to be complete. Since serum sodium is improving, there is no need for hypertonic saline at this point. Recheck serum sodium in a.m.
[2021-06-29] MEDS: Ipratropium/Albuterol Sulfate 3 ML AMPUL.NEB INHALATION (20:50)
[2021-06-29 21:11] LABS: Bedside Glucose 229 mg/dL (70-110)
[2021-06-30] VITALS (10 sets, daily range): BP systolic 107–119; BP diastolic 55–58; PULSE 62–86; RESP 16–27; TEMP 36.4–36.6; O2SAT 90–95
--- NOTE | 2021-06-30 02:45 | NURSING ---
pt incont of urine. Pt straight cath for urine for osmolarlity.
[2021-06-30 03:33] LABS: Urine Sodium 58 mmol/L (Not Establ.)
[2021-06-30] MEDS: Piperacil/Tazobactam 3.375 GM/50 ML ML IV ×3 (05:31→21:42)
[2021-06-30] MEDS: Gabapentin 300 MG Capsule PO ×2 (05:31→12:42)
[2021-06-30] MEDS: Insulin Lispro 100 UNIT/ML INSULN.PEN SC ×4 (06:42→20:00)
[2021-06-30 06:50] LABS: Bedside Glucose 171 mg/dL (70-110)
[2021-06-30] MEDS: Ipratropium/Albuterol Sulfate 3 ML AMPUL.NEB INHALATION ×3 (07:35→19:30)
[2021-06-30 08:05] LABS: Absolute Lymphocyte Count 0.93 X10^3/uL (0.83-4.51); Basophil# 0.07 X10^3/uL; Basophil% 0.5 % (0-1); Eosinophil# 0.02 X10^3/uL; Eosinophils% 0.1 % (0-5); Hematocrit 30.6 % (40-54); Hemoglobin 10.7 g/dL (13.0-16.5); Lymphocyte # 0.93 X10^3/ul (0.83-4.51); Lymphocyte % 6.5 % (19-41); Mean Corpuscular Hgb 30.9 pg (27.0-32.0); Mean Corpuscular Volume 88.4 fL (80-94); Mean Platelet Vol. 9.9 fl (6.2-12.0); Monocyte# 0.72 X10^3/uL; NRBC Flagged by Analyzer 0 % (0-5); Neutrophil # 12.01 X10^3/uL (2.7-7.7); Neutrophil % 83.3 % (47-70); Platelet Count 106 K/mm3 (150-450); RBC Distribution Width CV 15.1 % (11.6-14.6); RBC Distribution Width SD 48.6 fl (35.1-43.9); Red Blood Count 3.46 M/mm3 (4.6-6.2); White Blood Count 14.4 K/mm3 (4.4-11.0)
[2021-06-30] MEDS: Glimepiride 4 MG Tablet PO (08:28)
[2021-06-30] MEDS: Glucerna Shake 120 ML LIQUID PO ×3 (08:28→16:41)
[2021-06-30 09:13] LABS: AST(SGOT) 10 U/L (15-37); Alanine Aminotransfer ALT/SGPT 19 U/L (16-61); Albumin, Serum 1.8 g/dL (3.2-5.0); Alkaline Phosphatase 79 U/L (45-117); Anion Gap 9 (5-15); BUN 16 mg/dL (7-18); BUN/Creat Ratio 20.5 RATIO (10-20); Bilirubin, Direct 0.39 mg/dL (0.00-0.30); Calcium,Total 8.2 mg/dL (8.5-10.1); Chloride 90 mmol/L (98-107); Creatinine, Serum 0.78 mg/dL (0.70-1.30); EST Glomerular Filtration Rate 101 mL/min (>60); Est Glom Filt Rate - Afr Amer 122 mL/min (>60); Estimated Creatinine Clearance 51.41 ml/min; Glucose 159 mg/dL (74-106); Protein, Total 4.8 g/dL (6.4-8.2); Sodium Level 125 mmol/L (136-145); Thyroid Stim Hormone (TSH) 1.69 uIU/mL (0.358-3.74)
[2021-06-30 09:20] LABS: Osmolality, Serum 258 mOsm/KG (280-301)
[2021-06-30 10:03] LABS: Vancomycin, Trough Level 8.9 ug/mL (5.0-15.0)
[2021-06-30] MEDS: Vancomycin IV 500 MG/100 ML BAG 100 MG IV (10:23)
[2021-06-30] MEDS: Enoxaparin 40 MG/0.4 ML Syringe SC (10:24)
[2021-06-30] MEDS: DULoxetine Hcl 60 MG Capsule PO (10:24)
[2021-06-30] MEDS: Pantoprazole Sodium 20 MG Tablet PO (10:25)
[2021-06-30] MEDS: Allopurinol 100 MG Tablet PO (10:25)
--- NOTE | 2021-06-30 10:39 | PCM.RX.CS ---
Consult Pharmacy has been consulted to manage selected antiobiotic: Vancomycin Type of Consult: Follow-up Prior Doses of Antibiotics Received/Current Regimen: currently on vanc 500mg IV q12h Labs: Sodium 125 mmol/L (136-145) L 06/30/21 07:22 Potassium 4.0 mmol/L (3.5-5.1) 06/30/21 07:22 Chloride 90 mmol/L (98-107) L 06/30/21 07:22 Carbon Dioxide 26.0 mmol/L (21.0-32.0) 06/30/21 07:22 Anion Gap 9 (5-15) 06/30/21 07:22 BUN 16 mg/dL (7-18) 06/30/21 07:22 Creatinine 0.78 mg/dL (0.70-1.30) 06/30/21 07:22 Est GFR (MDRD) Af Amer 122 mL/min (>60) 06/30/21 07:22 Est GFR (MDRD) Non-Af 101 mL/min (>60) 06/30/21 07:22 BUN/Creatinine Ratio 20.5 RATIO (10-20) H 06/30/21 07:22 Glucose 159 mg/dL (74-106) H 06/30/21 07:22 Vancomycin Trough 8.9 ug/mL (5.0-15.0) 06/30/21 09:00 Microbiology: Microbiology 06/28/21 19:45 Urine, Clean Catch Urine Culture - Final Mixed Gram Positive Organisms 06/29/21 14:20 Urine, Clean Catch Legionella Antigen - Final 06/29/21 14:20 Urine, Clean Catch Streptococcus pneumoniae Antigen (M - Final Weight used for dosin.8 kg Estimated Creatinine Clearance: 51 ml/min Goal Trough: 15-20 mcg/mL Pharmacy Plan for Drug Dosing: The vanc trough drawn before this morning's dose was 8.9. This is below goal range so will increase next dose to 750mg IV q12h. Hesitant to increase dose too much at once since the patient is 85 years old. This morning's dose was already given so will start new dose a little earlier tonight. Will recheck a trough before the 4th new dose. Pharmacy Service will continue to monitor and adjust dosing as required. Follow-Up Labs: Trough Vancomycin Labs to be done on [date and time ordered]: 07/02/21 07:30
[2021-06-30 10:46] LABS: Bedside Glucose 152 mg/dL (70-110)
--- NOTE | 2021-06-30 10:51 | CON.PCM.RE_ITS ---
Assessment & Plan Assessment/Plan (1) Hyponatremia: PLAN: The patient is a 85-year-old man who was recently admitted to the hospital for COVID-19 pneumonia. He was discharged last week on home oxygen. The patient returns with confusion, anorexia, and failure to thrive at home. During work-up in the emergency department, the patient was found to have a serum sodium of 118 mmol/L. Serum sodium has improved to 125 mmol/L today, but this is still below his usual baseline serum sodium. During the last admission, serum sodium was between 130 to 132 mmol/L. Suspect that the patient has hypoosmolar hypotonic hyponatremia due to decreased intake. Another possibility is hyperglycemia induced hyponatremia although serum sodium would still be below 135 even after correcting for hyperglycemia. Another possibility would be hypoosmolar isotonic hyponatremia due to SIADH which could be related to recent pulmonary infection. However, this is a diagnosis of exclusion. Although possible, hyponatremia due to SNRI such as duloxetine is rare. Okay to continue duloxetine for now. U Na 58, urine osmolality is pending, serum osmolality 258. We will also check TSH and a.m. cortisol levels to be complete. Since serum sodium is improving, there is no need for hypertonic saline at this point. 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 HPI Consult Data Date of Consult: 06/30/21 HPI Narrative Reason for Consultation: hyponatremia HPI Narrative: ELENA GANDARA, is a 85 M who presents with change in MS, recently seen in june 19 for COVID 19 tx with remedivir and steriod, has CLL on ibrutinb, HTN DM-2 on metformin chronic use of duloxetine now stable with normal renal function developed hyponatremia acute on onset. [facility] Medical History Ankle fracture, left BPH (benign prostatic hyperplasia) Bronchitis Chronic leukemia Diabetes GERD (gastroesophageal reflux disease) History of gout History of hyperlipidemia History of non anemic vitamin B12 deficiency History of shingles Radiculopathy of leg Spinal stenosis Home Medications allopurinol 100 mg PO DAILY 04/29/17 [History Last Taken 06/21/21] cholecalciferol (vitamin D3) 5,000 unit PO DAILY 04/29/17 [History Last Taken 06/20/21] cyanocobalamin (vitamin B-12) 1,000 mcg IM Q30D 04/29/17 [History Last Taken Unknown] gabapentin 300 mg PO TID 04/29/17 [History Last Taken 06/21/21] metformin 1,000 mg PO BID 04/29/17 [History Last Taken 06/21/21] omeprazole 20 mg PO DAILY 04/29/17 [History Last Taken 06/21/21] ibrutinib 420 mg PO LUNCH 02/18/19 [History Last Taken 06/20/21] montelukast 10 mg PO QHS 04/14/20 [History Last Taken 06/20/21] albuterol sulfate [Ventolin HFA] 2 puff INHALATION Q4H PRN PRN #1 inhaler 12/11/20 [Rx Last Taken Unknown] Renal Caps 1 cap PO DAILY 06/17/21 [History Last Taken 06/20/21] Restasis 1 drp EACH EYE Q12H 06/17/21 [History Last Taken Unknown] alogliptin [Nesina] 12.5 mg PO DAILY 06/17/21 [History Last Taken 06/21/21] duloxetine 60 mg PO DAILY 06/17/21 [History Last Taken 06/21/21] hydroxyzine HCl 25 mg PO TID PRN 06/17/21 [History Last Taken Unknown] multivitamin 1 tab PO DAILY 06/17/21 [History Last Taken 06/20/21] oxycodone-acetaminophen 1 tab PO BID PRN 06/17/21 [History Last Taken Unknown] aspirin [Aspirin Childrens] 81 mg PO DAILY 30 Days #30 tab 06/19/21 [Rx Last Taken Unknown] glimepiride [Amaryl] 4 mg PO DAILY 30 Days #60 tab 06/19/21 [Rx Last Taken Unknown] dexamethasone 6 mg PO DAILY 06/21/21 [History Last Taken 06/21/21] terazosin 1 mg PO QHS 06/21/21 [History Last Taken 06/20/21] Allergy/AdvReac Type Severity Reaction Status Date / Time Nvuvxtt-RIQ-OpB Reductase Allergy Pain in Verified 06/21/21 12:09 Inhibitor joints [Oigndnr-Tbz-Aet Reductase Inhibitor] prednisone AdvReac Nausea/Vom/ Verified 06/21/21 12:09 Diarrhea Family History Mother Cancer skin Father Colon cancer Sister Cancer Brother Heart disease Family History unable to obtain Surgical History unable to obtain Social History Smoking Status: Never smoker Physical Exam Narrative MMM Confused CTA RRR Medical Records Data Medical Nutrition Assessment Dietitian: Malnutrition Criteria Met Start: 06/29/21 11:32 Freq: Status: Active Protocol: Document 06/29/21 11:32 AG (Rec: 06/29/21 11:32 AG [id number]) Nutrition Malnutrition Evidence of Malnutrition Exists Yes Malnutrition (severe): Acute Illness/Injury Evidenced By Suboptimal Energy Intake ( Severe),Weight Loss (Severe) Clinical Problem Acute Disease or Injury Related Malnutrition Etiology severe, acute malnutrition r/t inadequate energy intake w/ acute illness Signs/Symptoms as evidenced by unintentional wt loss of 11.5#/6.5% < 2 weeks; estimated PO intake meeting <75% of estimated energy needs >1 week Status Active Problem Recommendation Dietitian Recommendations/Changes continue regular diet d/t malnutrition; will fortify foods when possible and provide fortified pudding or magic cup w/ meals for additional calories/protein if consumed. Continue fluid restriction per hospitalist until etiology of hyponatremia is determined. Lab / Micro Data Result Diagrams: 06/30/21 07:22 06/30/21 07:22 Labs: Laboratory Results - last 24 hr 06/29/21 10:50: POC Glucose 217 H 06/29/21 17:06: POC Glucose 165 H 06/29/21 20:17: POC Glucose 229 H 06/30/21 02:50: Ur Random Sodium 58, Urine Creatinine 52.20 06/30/21 06:40: POC Glucose 171 H 06/30/21 07:22: WBC 14.4 H, RBC 3.46 L, Hgb 10.7 L, Hct 30.6 L, MCV 88.4, MCH 30.9, MCHC 35.0, RDW Std Deviation 48.6 H, RDW Coeff of Samreen 15.1 H, Plt Count 106 L, MPV 9.9, Immature Gran % (Auto) 4.600 H, Neut % (Auto) 83.3 H, Lymph % (Auto) 6.5 L, [place] % (Auto) 5.0, Eos % (Auto) 0.1, Baso % (Auto) 0.5, Absolute Neuts (auto) 12.0 H, Absolute Lymphs (auto) 0.93, Nucleated RBC % 0 06/30/21 07:22: Sodium 125 L, Potassium 4.0, Chloride 90 L, Carbon Dioxide 26.0, Anion Gap 9, BUN 16, Creatinine 0.78, Estim Creat Clear Calc 51.41, Est GFR (MDRD) Af Amer 122, Est GFR (MDRD) Non-Af 101, BUN/Creatinine Ratio 20.5 H, Glucose 159 H, Calcium 8.2 L, Total Bilirubin 0.90, Direct Bilirubin 0.39 H, AST 10 L, ALT 19, Alkaline Phosphatase 79, C-React Prot Ext Range 24.10 H, Total Protein 4.8 L, Albumin 1.8 L, Globulin 3.0, TSH 1.69 06/30/21 07:22: Serum Osmolality 258 L 06/30/21 09:00: Vancomycin Trough 8.9 06/30/21 10:28: POC Glucose 152 H Micro: Microbiology 06/28/21 19:45 Urine, Clean Catch Urine Culture - Final Mixed Gram Positive Organisms 06/29/21 14:20 Urine, Clean Catch Legionella Antigen - Final 06/29/21 14:20 Urine, Clean Catch Streptococcus pneumoniae Antigen (M - Final
[2021-06-30] MEDS: Sodium Chloride 1 GM Tablet 2 GM PO ×2 (12:42→19:55)
--- NOTE | 2021-06-30 13:38 | PCM.PN.HOSP ---
Subjective Subjective Patient is confused and disoriented. Opens eyes, incomprehensible words and phrases. No fever. Objective Data Objective Data Vital Signs: Vital Signs Temp Pulse Resp BP Pulse Ox 97.6 F L 68 16 109/56 L 93 06/30/21 08:30 06/30/21 09:35 06/30/21 09:35 06/30/21 08:30 06/30/21 09:35 Oxygen Flow Rate (L/min) 2 Oxygen Delivery Method Nasal Cannula Weight: 169 lb 5.04 oz Body Mass Index (BMI) 26.1 Intake & Output: Intake and Output for Last 24 Hours 06/28/21 06/29/21 06/30/21 23:59 23:59 23:59 Intake Total 294.93 / 294.93 400 / 460 440 / 440 Output Total 150 / 350 700 / 700 Balance 294.93 / 294.93 250 / 110 -260 / -260 Medical Nutrition Assessment Dietitian: Malnutrition Criteria Met Start: 06/29/21 11:32 Freq: Status: Active Protocol: Document 06/29/21 11:32 AG (Rec: 06/29/21 11:32 [id number]) Nutrition Malnutrition Evidence of Malnutrition Exists Yes Malnutrition (severe): Acute Illness/Injury Evidenced By Suboptimal Energy Intake ( Severe),Weight Loss (Severe) Clinical Problem Acute Disease or Injury Related Malnutrition Etiology severe, acute malnutrition r/t inadequate energy intake w/ acute illness Signs/Symptoms as evidenced by unintentional wt loss of 11.5#/6.5% < 2 weeks; estimated PO intake meeting <75% of estimated energy needs >1 week Status Active Problem Recommendation Dietitian Recommendations/Changes continue regular diet d/t malnutrition; will fortify foods when possible and provide fortified pudding or magic cup w/ meals for additional calories/protein if consumed. Continue fluid restriction per hospitalist until etiology of hyponatremia is determined. Lab / Micro Data Result Diagrams: 06/30/21 07:22 06/30/21 07:22 Labs: Laboratory Results - last 24 hr 06/29/21 17:06: POC Glucose 165 H 06/29/21 20:17: POC Glucose 229 H 06/30/21 02:50: Ur Random Sodium 58, Urine Creatinine 52.20 06/30/21 06:40: POC Glucose 171 H 06/30/21 07:22: WBC 14.4 H, RBC 3.46 L, Hgb 10.7 L, Hct 30.6 L, MCV 88.4, MCH 30.9, MCHC 35.0, RDW Std Deviation 48.6 H, RDW Coeff of Samreen 15.1 H, Plt Count 106 L, MPV 9.9, Immature Gran % (Auto) 4.600 H, Neut % (Auto) 83.3 H, Lymph % (Auto) 6.5 L, Worth % (Auto) 5.0, Eos % (Auto) 0.1, Baso % (Auto) 0.5, Absolute Neuts (auto) 12.0 H, Absolute Lymphs (auto) 0.93, Nucleated RBC % 0 06/30/21 07:22: Sodium 125 L, Potassium 4.0, Chloride 90 L, Carbon Dioxide 26.0, Anion Gap 9, BUN 16, Creatinine 0.78, Estim Creat Clear Calc 51.41, Est GFR (MDRD) Af Amer 122, Est GFR (MDRD) Non-Af 101, BUN/Creatinine Ratio 20.5 H, Glucose 159 H, Calcium 8.2 L, Total Bilirubin 0.90, Direct Bilirubin 0.39 H, AST 10 L, ALT 19, Alkaline Phosphatase 79, C-React Prot Ext Range 24.10 H, Total Protein 4.8 L, Albumin 1.8 L, Globulin 3.0, TSH 1.69 06/30/21 07:22: Serum Osmolality 258 L 06/30/21 09:00: Vancomycin Trough 8.9 06/30/21 10:28: POC Glucose 152 H Micro: Microbiology 06/28/21 19:45 Urine, Clean Catch Urine Culture - Final Mixed Gram Positive Organisms 06/29/21 14:20 Urine, Clean Catch Legionella Antigen - Final 06/29/21 14:20 Urine, Clean Catch Streptococcus pneumoniae Antigen (M - Final Physical Exam Narrative Seen by specialized language instructor and discussed with him General: Lethargic, obtunded. Incomprehensible words and phrases. HEENT: Atraumatic, PERRLA, EOMI, Normocephalic Oral: No Gingival or Mucosal Lesions/ Ulcerations Neck: Supple, No JVD, Negative Carotid Bruits Lungs: Air entry diminished in bilateral lung bases. Occasional bilateral expiratory rhonchi Cardiovascular: Regular rate, Regular Rhythm, Normal S1, Normal S2, No murmurs Abdomen: Bowel Sounds Present, Soft, Non Tender, Non-Distended : Urinary incontinent, voided 3 times. No renal angle tenderness. No suprapubic tenderness. Extremities: No edema, Capillary Refill Less than 3 Seconds Skin: Bruises over knees. Musculoskeletal: bruise and a scab over left knee. ROM restricted. Low functional capacity. History of fall Neurological: Cranial nerves II-XII grossly intact, DTR 2+/4 and Symmetrical Psych/Mental Status: Confused, disoriented. Assessment & Plan Assessment/Plan (1) Hypoxemia: (2) Pneumonia: (3) Hyponatremia: (4) Anorexia: PLAN: 1. Acute hypoxic respiratory failure due to bilateral COVID-19 pneumonia with suspicion of secondary bacterial infection: Patient had remdesivir and dexamethasone. Had Covid infection and was admitted before and discharged on June 19, 2021. Patient more confused and disoriented with low functional capacity and decreased appetite. Lactic acid 2.2. On vanc and Zosyn given concern for bacterial pneumonia and worsening white count. 06/30: Urinary antigens are negative. Respiratory viral panel not available. Flu panel ordered 2. CLL ?Patient is ibrutinib, which has been held at home started this week and we will continue to hold 3. Diabetes mellitus type II with hyperglycemia -patient's oral hypoglycemics held, except for glimepiride which will be continued. Placed on long acting insulin 10 u nightly, Accu-Cheks a.c. and at bedtime and covered with sliding scale insulin 4. GERD ?Patient is on PPI did continue 5. Hypertension - Blood pressure controlled, home medications continued with dose adjustment as needed 6. Dyslipidemia ?Patient is on gemfibrozil this was held on admission 7. Chronic pain syndrome -Tylenol PRN Gabapentin discontinued. Continue duloxetine. Trying to avoid polypharmacy 8. Gout ?On allopurinol did continue 9. Moderate hyponatremia ?Normovolemic hypotonic hyponatremia due to glucose vs SIADH as a result of patient underlying lung condition. Serum osmolality low --Serum sodium 121 Patient urine sodium 58, TSH normal. Cortisol pending. BMP 37.6. 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 Started on sodium chloride tablets 2 g twice daily. Avoid fluid due to CHF. 10. Encephalopathy unclear acute or chronic possible dementia: Most probably due to metabolic or infectious. ABG 7.4 8/30/60 on 5 L of oxygeN. Try to correct underlying disorder DVT prophylaxis ?Lovenox 40 mg SC daily Continue diet Full code Lovenox 40 mg Charges/Coding Visit Charges Inpatient E&M: 29077 Subs Hosp L2
[2021-06-30 15:36] LABS: Osmolality, Urine 489 mOsm/KG
[2021-06-30 17:00] LABS: Bedside Glucose 311 mg/dL (70-110)
[2021-06-30] MEDS: Doxazosin 1 MG Tablet PO (19:55)
[2021-06-30] MEDS: guaiFENesin/D-Methorphan TAB.SR.12H 1 TABLET PO (19:55)
[2021-06-30] MEDS: Montelukast 10 MG Tablet PO (19:56)
[2021-06-30 20:35] LABS: Bedside Glucose 201 mg/dL (70-110)
[2021-07-01] VITALS (9 sets, daily range): BP systolic 104–124; BP diastolic 49–62; PULSE 67–82; RESP 17–20; TEMP 36.5–36.9; O2SAT 92–95
[2021-07-01] MEDS: Piperacil/Tazobactam 3.375 GM/50 ML ML IV ×3 (06:32→22:05)
[2021-07-01] MEDS: Insulin Lispro 100 UNIT/ML INSULN.PEN SC ×4 (06:35→21:48)
[2021-07-01 06:50] LABS: Bedside Glucose 189 mg/dL (70-110)
[2021-07-01] MEDS: Ipratropium/Albuterol Sulfate 3 ML AMPUL.NEB INHALATION ×4 (07:08→23:05)
[2021-07-01 07:13] LABS: Hematocrit 28.7 % (40-54); Hemoglobin 10.3 g/dL (13.0-16.5); Mean Corp Hgb Conc 35.9 g/dL (32-36); Mean Corpuscular Volume 89.1 fL (80-94); Mean Platelet Vol. 9.9 fl (6.2-12.0); POSITIVE COUNT YES; POSITIVE MORPHOLOGY YES; Platelet Count 100 K/mm3 (150-450); RBC Distribution Width CV 15.3 % (11.6-14.6); RBC Distribution Width SD 49.4 fl (35.1-43.9); Red Blood Count 3.22 M/mm3 (4.6-6.2); White Blood Count 11.5 K/mm3 (4.4-11.0)
[2021-07-01 07:33] LABS: AST(SGOT) 10 U/L (15-37); Alanine Aminotransfer ALT/SGPT 20 U/L (16-61); Albumin, Serum 1.7 g/dL (3.2-5.0); Alkaline Phosphatase 85 U/L (45-117); Anion Gap 7 (5-15); BUN 14 mg/dL (7-18); BUN/Creat Ratio 16.8 RATIO (10-20); Bilirubin, Direct 0.35 mg/dL (0.00-0.30); Calcium,Total 8.1 mg/dL (8.5-10.1); Chloride 93 mmol/L (98-107); Creatinine, Serum 0.83 mg/dL (0.70-1.30); EST Glomerular Filtration Rate 93 mL/min (>60); Est Glom Filt Rate - Afr Amer 113 mL/min (>60); Estimated Creatinine Clearance 61.94 ml/min; Globulin 2.9 g/dL (2.2-4.2); Glucose 190 mg/dL (74-106); Potassium 3.6 mmol/L (3.5-5.1); Protein, Total 4.6 g/dL (6.4-8.2); Sodium Level 127 mmol/L (136-145)
[2021-07-01 07:34] LABS: Differential Indicated MANUAL DIFF
[2021-07-01 08:40] LABS: Lymphocyte 10 % (19-41); Metamyelocyte 1 % (0-1); Monocyte 9 % (0-10); Neutrophil-Segmented 80 % (47-70); Total Cells Counted 100 (MANUAL DIFF)
[2021-07-01 08:41] LABS: Hypochromasia RARE; Platelet Estimate SLT DEC (ADEQ)
[2021-07-01 08:42] LABS: Absolute Lymphocyte Count 1.15 X10^3/uL (0.83-4.51); Absolute Neutrophil Count 9.3 X10^3/uL (2.0-7.7)
[2021-07-01] MEDS: Sodium Chloride 1 GM Tablet 2 GM PO ×2 (10:04→20:33)
[2021-07-01] MEDS: Allopurinol 100 MG Tablet PO (10:04)
[2021-07-01] MEDS: Enoxaparin 40 MG/0.4 ML Syringe SC (10:04)
[2021-07-01] MEDS: DULoxetine Hcl 60 MG Capsule PO (10:04)
[2021-07-01] MEDS: Pantoprazole Sodium 20 MG Tablet PO (10:04)
[2021-07-01] MEDS: guaiFENesin/D-Methorphan TAB.SR.12H 1 TABLET PO ×2 (10:04→20:34)
[2021-07-01] MEDS: Glucerna Shake 120 ML LIQUID PO ×2 (10:05→17:27)
[2021-07-01 11:50] LABS: Bedside Glucose 270 mg/dL (70-110)
--- NOTE | 2021-07-01 15:22 | PCM.PN.HOSP ---
Subjective Subjective Patient is more awake alert to verbal. Is speaking few words. Understands simple questions. Improvement in sodium to 127. Objective Data Objective Data Vital Signs: Vital Signs Temp Pulse Resp BP Pulse Ox 97.7 F L 80 18 124/56 H 94 07/01/21 14:00 07/01/21 14:00 07/01/21 14:00 07/01/21 14:00 07/01/21 14:00 Oxygen Flow Rate (L/min) 2 Oxygen Delivery Method Nasal Cannula Weight: 167 lb 15.876 oz Body Mass Index (BMI) 26.1 Intake & Output: Intake and Output for Last 24 Hours 06/29/21 06/30/21 07/01/21 23:59 23:59 23:59 Intake Total 400 / 460 1075 / 1075 605 / 605 Output Total 150 / 350 1200 / 1200 300 / 300 Balance 250 / 110 -125 / -125 305 / 305 Medical Nutrition Assessment Dietitian: Malnutrition Criteria Met Start: 06/29/21 11:32 Freq: Status: Active Protocol: Document 06/29/21 11:32 (Rec: 06/29/21 11:32 [id number]) Nutrition Malnutrition Evidence of Malnutrition Exists Yes Malnutrition (severe): Acute Illness/Injury Evidenced By Suboptimal Energy Intake ( Severe),Weight Loss (Severe) Clinical Problem Acute Disease or Injury Related Malnutrition Etiology severe, acute malnutrition r/t inadequate energy intake w/ acute illness Signs/Symptoms as evidenced by unintentional wt loss of 11.5#/6.5% < 2 weeks; estimated PO intake meeting <75% of estimated energy needs >1 week Status Active Problem Recommendation Dietitian Recommendations/Changes continue regular diet d/t malnutrition; will fortify foods when possible and provide fortified pudding or magic cup w/ meals for additional calories/protein if consumed. Continue fluid restriction per hospitalist until etiology of hyponatremia is determined. Lab / Micro Data Result Diagrams: 07/01/21 06:24 07/01/21 06:24 Labs: Laboratory Results - last 24 hr 06/30/21 14:40: Urine Osmolality 489 06/30/21 16:38: POC Glucose 311 H 06/30/21 19:50: POC Glucose 201 H 07/01/21 06:24: WBC 11.5 H, RBC 3.22 L, Hgb 10.3 L, Hct 28.7 L, MCV 89.1, MCH 32.0, MCHC 35.9, RDW Std Deviation 49.4 H, RDW Coeff of Samreen 15.3 H, Plt Count 100 L, MPV 9.9, Neut % (Auto) Not Reportable, Absolute Neuts (auto) 9.3 H, Absolute Lymphs (auto) 1.15, Total Counted 100, Neutrophils % (Manual) 80 H, Lymphocytes % (Manual) 10 L, Monocytes % (Manual) 9, Metamyelocytes % 1, Diff Path Review October foll, Platelet Estimate SLT DEC, Hypochromasia RARE 07/01/21 06:24: Sodium 127 L, Potassium 3.6, Chloride 93 L, Carbon Dioxide 27.0, Anion Gap 7, BUN 14, Creatinine 0.83, Estim Creat Clear Calc 61.94, Est GFR (MDRD) Af Amer 113, Est GFR (MDRD) Non-Af 93, BUN/Creatinine Ratio 16.8, Glucose 190 H, Calcium 8.1 L, Total Bilirubin 0.80, Direct Bilirubin 0.35 H, AST 10 L, ALT 20, Alkaline Phosphatase 85, Total Protein 4.6 L, Albumin 1.7 L, Globulin 2.9 07/01/21 06:29: POC Glucose 189 H 07/01/21 11:36: POC Glucose 270 H Micro: Microbiology 06/28/21 19:47 Blood Culture (Wb) - Left Wrist Blood Culture - Preliminary No growth in 48 hours. 06/28/21 20:00 Blood Culture (Wb) - Right Hand Blood Culture - Preliminary No growth in 48 hours. 06/30/21 16:25 Mucosa - Nasopharyngeal Influenza Types A,B Direct FA (CATHY) - Final 06/28/21 19:45 Urine, Clean Catch Urine Culture - Final Mixed Gram Positive Organisms 06/29/21 14:20 Urine, Clean Catch Legionella Antigen - Final 06/29/21 14:20 Urine, Clean Catch Streptococcus pneumoniae Antigen (M - Final Physical Exam Narrative Physical exam General: Awake, oriented x1. Responds to simple questions appropriately. HEENT: Atraumatic, PERRLA, EOMI, Normocephalic Oral: No Gingival or Mucosal Lesions/ Ulcerations Neck: Supple, No JVD, Negative Carotid Bruits Lungs: Air entry diminished in bilateral lung bases. Occasional rhonchi/crepitations bilaterally Cardiovascular: Regular rate, Regular Rhythm, Normal S1, Normal S2, No murmurs Abdomen: Bowel Sounds Present, Soft, Non Tender, Non-Distended : Urinary incontinent. No renal angle tenderness. No suprapubic tenderness. Extremities: No edema, Capillary Refill Less than 3 Seconds Skin: Bruises over knees. Musculoskeletal: bruise and a scab over left knee. ROM restricted. Low functional capacity. Neurological: Cranial nerves II-XII grossly intact, DTR 2+/4 and Symmetrical Psych/Mental Status: Intermittent confusion, possible dementia Assessment & Plan Assessment/Plan (1) Hypoxemia: (2) Pneumonia: (3) Hyponatremia: (4) Anorexia: PLAN: 1. Acute hypoxic respiratory failure due to bilateral COVID-19 pneumonia: Patient had remdesivir and dexamethasone. Had Covid infection and was admitted before and discharged on June 19, 2021. Patient more confused and disoriented with low functional capacity and decreased appetite. Lactic acid 2.2. On vanc and Zosyn given concern for bacterial pneumonia /2: No fever or chills. Leukocytosis improving. Seems responding to antibiotic. Blood culture negative for 48 hours. Urinary antigens negative. Influenza A and B antigen negative 2. CLL ?Patient is ibrutinib, which has been held at home started this week and we will continue to hold 3. Diabetes mellitus type II with hyperglycemia -patient's oral hypoglycemics held, except for glimepiride which will be continued. Placed on long acting insulin 10 u nightly, Accu-Cheks a.c. and at bedtime and covered with sliding scale insulin Glucose indestructible limited 4. GERD ?Patient is on PPI did continue 5. Hypertension - Blood pressure controlled, home medications continued with dose adjustment as needed 6. Dyslipidemia ?Patient is on gemfibrozil this was held on admission 7. Chronic pain syndrome ?Patient is on gabapentin, duloxetine -Tylenol PRN 8. Gout ?On allopurinol did continue 9. Moderate hyponatremia ?Normovolemic hypotonic hyponatremia due to glucose vs SIADH as a result of patient underlying lung condition. urine osmolarity more than serum osmolality. Urine sodium 58. 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 Serum sodium responding to sodium tablet is started on 06/30. Discussed with the shift boss 10. Encephalopathy unclear acute or chronic possible dementia: Most probably due to metabolic or infectious. ABG 7.4 830/60 on 5 L of oxygeN. Try to correct underlying disorder DVT prophylaxis ?Lovenox 40 mg SC daily Continue diet Full code Lovenox 40 mg Active Medications Acetaminophen (Acetaminophen 325 Mg Tablet) 650 mg PO Q6H PRN PRN PRN Reason: Pain Score 1-10/Temp > 100.7 F Albuterol/Ipratropium (Ipratropium/Albuterol Sulfate 3 Ml Ampul.Neb) 3 ml INHALATION Q6HWA.RT [facility] Last Admin: 07/01/21 12:39 Dose: 3 ml Documented by: Allopurinol (Allopurinol 100 Mg Tablet) 100 mg PO DAILY [facility] Last Admin: 07/01/21 10:04 Dose: 100 mg Documented by: Aspirin (Aspirin 81 Mg Tab.Chew) 81 mg PO DAILYCM [facility] Last Admin: 06/29/21 08:38 Dose: 81 mg Documented by: Dextrose (Dextrose 50%-Water 25 Gm/50 Ml Disp.Syrin) 0 gm IV X1 PRN; Protocol PRN Reason: Hypoglycemia Doxazosin Mesylate (Doxazosin 1 Mg Tablet) 1 mg PO QHS [facility] Last Admin: 06/30/21 19:55 Dose: 1 mg Documented by: Duloxetine HCl (Duloxetine Hcl 60 Mg Capsule) 60 mg PO DAILY [facility] Last Admin: 07/01/21 10:04 Dose: 60 mg Documented by: Enoxaparin Sodium (Enoxaparin 40 Mg/0.4 Ml Syringe) 40 mg SC DAILY [facility] Last Admin: 07/01/21 10:04 Dose: 40 mg Documented by: Glucagon (Glucagon 1 Mg/Ml Syringe) 1 mg IM .X1 PRN PRN Reason: Hypoglycemia Guaifenesin (Guaifenesin/D-Methorphan Tab.Sr.12h) 1 tablet PO BID [facility] Last Admin: 07/01/21 10:04 Dose: 1 tablet Documented by: Vancomycin IV-PHARMACY TO DOSE (1 each/ Sodium Chloride) 500 mls @ 250 mls/hr IV X1 PRN; Protocol PRN Reason: Rx to Dose Sodium Chloride () 250 mls @ 15 mls/hr IV .[id number] PRN PRN Reason: Saline Flush Sodium Chloride () 250 mls @ 15 mls/hr IV .[id number] PRN PRN Reason: Additional IVPB Infusion Piperacillin Sod/Tazobactam Sod (Zosyn) 3.375 gm in 50 mls @ 12.5 mls/hr IV Q8 [facility] Last Admin: 07/01/21 13:51 Dose: 12.5 mls/hr Documented by: Vancomycin HCl 750 mg/ Sodium (Chloride) 265 mls @ 250 mls/hr IV Q12H [facility] Last Infusion: 07/01/21 12:32 Dose: Infused Documented by: Insulin Glargine (Insulin Glargine 100 Units/Ml Pen) 15 units SC QHS [facility] Last Admin: 06/30/21 19:59 Dose: 15 u Documented by: Insulin Human Lispro (Insulin Lispro 100 Unit/Ml Insuln.Pen) 0 unit SC ACHS [facility]; Protocol Last Admin: 07/01/21 12:15 Dose: 4 unit Documented by: Montelukast Sodium (Montelukast 10 Mg Tablet) 10 mg PO QHS [facility] Last Admin: 06/30/21 19:56 Dose: 10 mg Documented by: Nutritional Formula (Lactose Free) (Glucerna Shake 120 Ml Liquid) 120 ml PO TIDCM [facility] Last Admin: 07/01/21 12:16 Dose: Not Given Documented by: Pantoprazole Sodium (Pantoprazole Sodium 20 Mg Tablet) 20 mg PO DAILY [facility] Last Admin: 07/01/21 10:04 Dose: 20 mg Documented by: Sodium Chloride (0.9% Saline Lock 10 Ml Syringe) 10 - 40 ml IV UD PRN PRN Reason: SALINE FLUSH Last Admin: 06/29/21 00:05 Dose: 10 ml Documented by: Sodium Chloride (Sodium Chloride 1 Gm Tablet) 2 gm PO BID [facility] Last Admin: 07/01/21 10:04 Dose: 2 gm Documented by: Charges/Coding Visit Charges Inpatient E&M: 73705 Subs Hosp L2
[2021-07-01 16:55] LABS: Bedside Glucose 262 mg/dL (70-110)
[2021-07-01] MEDS: Doxazosin 1 MG Tablet PO (20:33)
[2021-07-01] MEDS: Montelukast 10 MG Tablet PO (20:33)
[2021-07-01] MEDS: 0.9% Saline Lock 10 ML Syringe IV (22:22)
[2021-07-01 23:45] LABS: Bedside Glucose 182 mg/dL (70-110)
[2021-07-02] VITALS (10 sets, daily range): BP systolic 126–143; BP diastolic 55–67; PULSE 65–89; RESP 16–20; TEMP 36.6–36.9; O2SAT 94–97
[2021-07-02] MEDS: Piperacil/Tazobactam 3.375 GM/50 ML ML IV ×2 (06:11→14:21)
[2021-07-02 06:30] LABS: Bedside Glucose 146 mg/dL (70-110)
[2021-07-02] MEDS: Ipratropium/Albuterol Sulfate 3 ML AMPUL.NEB INHALATION ×3 (07:33→18:27)
[2021-07-02 08:04] LABS: Mean Corp Hgb Conc 34.5 g/dL (32-36); Mean Corpuscular Hgb 30.8 pg (27.0-32.0); Mean Corpuscular Volume 89.2 fL (80-94); Mean Platelet Vol. 9.4 fl (6.2-12.0); POSITIVE COUNT YES; POSITIVE MORPHOLOGY YES; Platelet Count 106 K/mm3 (150-450); RBC Distribution Width CV 15.3 % (11.6-14.6); RBC Distribution Width SD 49.8 fl (35.1-43.9); Red Blood Count 3.25 M/mm3 (4.6-6.2); White Blood Count 10.6 K/mm3 (4.4-11.0)
[2021-07-02 08:05] LABS: Differential Indicated MANUAL DIFF
[2021-07-02 08:29] LABS: Lymphocyte 6 % (19-41); Metamyelocyte 1 % (0-1); Monocyte 1 % (0-10); Myelocyte 1 % (0-0); Neutrophil-Band 1 % (0-5); Neutrophil-Segmented 90 % (47-70); Platelet Estimate MOD DEC (ADEQ); Total Cells Counted 100 (MANUAL DIFF)
[2021-07-02 08:30] LABS: Red Cell Morphology NORM C+C NORMAL (NORM C&C)
[2021-07-02 08:32] LABS: AST(SGOT) 12 U/L (15-37); Alanine Aminotransfer ALT/SGPT 22 U/L (16-61); Albumin, Serum 1.7 g/dL (3.2-5.0); Alkaline Phosphatase 93 U/L (45-117); Anion Gap 6 (5-15); BUN 13 mg/dL (7-18); BUN/Creat Ratio 17.6 RATIO (10-20); Bilirubin, Direct 0.32 mg/dL (0.00-0.30); Calcium,Total 8.3 mg/dL (8.5-10.1); Chloride 97 mmol/L (98-107); Creatinine, Serum 0.74 mg/dL (0.70-1.30); EST Glomerular Filtration Rate 107 mL/min (>60); Est Glom Filt Rate - Afr Amer 130 mL/min (>60); Estimated Creatinine Clearance 51.41 ml/min; Glucose 138 mg/dL (74-106); Potassium 3.5 mmol/L (3.5-5.1); Protein, Total 4.7 g/dL (6.4-8.2); Sodium Level 129 mmol/L (136-145)
[2021-07-02 08:39] LABS: Vancomycin, Trough Level 12.5 ug/mL (5.0-15.0)
[2021-07-02] MEDS: Enoxaparin 40 MG/0.4 ML Syringe SC (09:00)
[2021-07-02] MEDS: DULoxetine Hcl 60 MG Capsule PO (09:00)
[2021-07-02] MEDS: Aspirin 81 MG TAB.CHEW PO (09:00)
[2021-07-02] MEDS: guaiFENesin/D-Methorphan TAB.SR.12H 1 TABLET PO ×2 (09:01→22:03)
[2021-07-02] MEDS: Sodium Chloride 1 GM Tablet 2 GM PO ×2 (09:01→22:03)
[2021-07-02] MEDS: Pantoprazole Sodium 20 MG Tablet PO (09:01)
[2021-07-02] MEDS: Glucerna Shake 120 ML LIQUID PO ×3 (09:07→17:05)
[2021-07-02] MEDS: Allopurinol 100 MG Tablet PO (10:39)
[2021-07-02] MEDS: Vancomycin IV 1,000 MG/200 ML BAG 200 MG IV (11:10)
[2021-07-02] MEDS: Insulin Lispro 100 UNIT/ML INSULN.PEN SC ×3 (11:11→22:10)
--- NOTE | 2021-07-02 11:18 | PN.RENAL_ITS ---
Subjective Subjective Following for hyponatremia. The patient denies headache, nausea, or confusion. Appetite is still poor per RN. Objective Data Objective Data Vital Signs: Vital Signs Temp Pulse Resp BP Pulse Ox 97.8 F 86 18 130/64 H 97 07/02/21 10:41 07/02/21 10:41 07/02/21 10:41 07/02/21 10:41 07/02/21 10:41 Oxygen Flow Rate (L/min) 3 Oxygen Delivery Method Nasal Cannula Weight: 75.7 kg Body Mass Index (BMI) 26.1 Intake & Output: Intake and Output for Last 24 Hours 06/30/21 07/01/21 07/02/21 23:59 23:59 23:59 Intake Total 1075 / 1075 1280 / 1280 220 / 220 Output Total 1200 / 1200 900 / 900 Balance -125 / -125 380 / 380 220 / 220 Medical Nutrition Assessment Dietitian: Malnutrition Criteria Met Start: 06/29/21 11:32 Freq: Status: Active Protocol: Document 06/29/21 11:32 (Rec: 06/29/21 11:32 [id number]) Nutrition Malnutrition Evidence of Malnutrition Exists Yes Malnutrition (severe): Acute Illness/Injury Evidenced By Suboptimal Energy Intake ( Severe),Weight Loss (Severe) Clinical Problem Acute Disease or Injury Related Malnutrition Etiology severe, acute malnutrition r/t inadequate energy intake w/ acute illness Signs/Symptoms as evidenced by unintentional wt loss of 11.5#/6.5% < 2 weeks; estimated PO intake meeting <75% of estimated energy needs >1 week Status Active Problem Recommendation Dietitian Recommendations/Changes continue regular diet d/t malnutrition; will fortify foods when possible and provide fortified pudding or magic cup w/ meals for additional calories/protein if consumed. Continue fluid restriction per hospitalist until etiology of hyponatremia is determined. Lab / Micro Data Result Diagrams: 07/02/21 07:35 07/02/21 07:35 Labs: Laboratory Results - last 24 hr 06/30/21 07:22: Cortisol 21.90 07/01/21 11:36: POC Glucose 270 H 07/01/21 16:47: POC Glucose 262 H 07/01/21 21:46: POC Glucose 182 H 07/02/21 06:06: POC Glucose 146 H 07/02/21 07:35: WBC 10.6, RBC 3.25 L, Hgb 10.0 L, Hct 29.0 L, MCV 89.2, MCH 30.8, MCHC 34.5, RDW Std Deviation 49.8 H, RDW Coeff of Samreen 15.3 H, Plt Count 106 L, MPV 9.4, Neut % (Auto) Not Reportable, Total Counted 100, Neutrophils % (Manual) 90 H, Band Neutrophils % 1, Lymphocytes % (Manual) 6 L, Monocytes % (Manual) 1, Metamyelocytes % 1, Myelocytes % 1 H, Diff Path Review October, Platelet Estimate MOD DEC, RBC Morphology NORM C+C 07/02/21 07:35: Sodium 129 L, Potassium 3.5, Chloride 97 L, Carbon Dioxide 26.0, Anion Gap 6, BUN 13, Creatinine 0.74, Estim Creat Clear Calc 51.41, Est GFR (MDRD) Af Amer 130, Est GFR (MDRD) Non-Af 107, BUN/Creatinine Ratio 17.6, Glucose 138 H, Calcium 8.3 L, Total Bilirubin 0.70, Direct Bilirubin 0.32 H, AST 12 L, ALT 22, Alkaline Phosphatase 93, Total Protein 4.7 L, Albumin 1.7 L, Globulin 3.0 07/02/21 07:35: Vancomycin Trough 12.5 Micro: Microbiology 06/28/21 19:47 Blood Culture (Wb) - Left Wrist Blood Culture - Preliminary No growth in 48 hours. 06/28/21 20:00 Blood Culture (Wb) - Right Hand Blood Culture - Preliminary No growth in 48 hours. 06/30/21 16:25 Mucosa - Nasopharyngeal Influenza Types A,B Direct FA (CATHY) - Final 06/28/21 19:45 Urine, Clean Catch Urine Culture - Final Mixed Gram Positive Organisms 06/29/21 14:20 Urine, Clean Catch Legionella Antigen - Final 06/29/21 14:20 Urine, Clean Catch Streptococcus pneumoniae Antigen (M - Final Physical Exam Narrative General: No apparent distress HEENT: Normocephalic, atraumatic. Mucous membrane moist. Heart: Normal S1, S2. There is a 2/6 systolic murmur. Lungs: Clear to auscultation anteriorly. Abdomen: Normal bowel sound, soft, nontender, no guarding or rebound. Extremities: No clubbing, cyanosis, or edema. Assessment & Plan Assessment/Plan (1) Hyponatremia: PLAN: The patient is a 85-year-old man who was recently admitted to the [facility] for COVID-19 pneumonia. He was discharged last week on home oxygen. The patient returns on 06/28/2021 with confusion, anorexia, and failure to thrive at home. During work-up in the emergency department, the patient was found to have a serum sodium of 118 mmol/L. Serum sodium has improved to 129 mmol/L today, but this is still below his usual baseline serum sodium. During the last admission, serum sodium was between 130 to 132 mmol/L. The patient has hypoosmolar hypotonic hyponatremia due to decreased solute intake. TSH and cortisol level were normal. Another possibility for hyponatremia would be SIADH although the patient still appears to be volume depleted by exam. Although possible, hyponatremia due to SNRI such as duloxetine is rare. Okay to continue duloxetine for now since serum sodium is improving. Continue to encourage patient to increase solute, particularly protein, intake. Limit free water intake to less than 1.5 L/day. From my standpoint, if the patient can keep food/water down and if we can check serum sodium again in 2 to 3 days as outpatient, he can be discharged from my standpoint. My only concern would be if the patient can keep up with oral intake on his own as outpatient. Recheck serum sodium in a.m.
--- NOTE | 2021-07-02 12:56 | PCM.RX.CS ---
Consult Pharmacy has been consulted to manage selected antiobiotic: Vancomycin Type of Consult: Follow-up Prior Doses of Antibiotics Received/Current Regimen: 750mg iv q12h Labs: Sodium 129 mmol/L (136-145) L 07/02/21 07:35 Potassium 3.5 mmol/L (3.5-5.1) 07/02/21 07:35 Chloride 97 mmol/L (98-107) L 07/02/21 07:35 Carbon Dioxide 26.0 mmol/L (21.0-32.0) 07/02/21 07:35 Anion Gap 6 (5-15) 07/02/21 07:35 BUN 13 mg/dL (7-18) 07/02/21 07:35 Creatinine 0.74 mg/dL (0.70-1.30) 07/02/21 07:35 Est GFR (MDRD) Af Amer 130 mL/min (>60) 07/02/21 07:35 Est GFR (MDRD) Non-Af 107 mL/min (>60) 07/02/21 07:35 BUN/Creatinine Ratio 17.6 RATIO (10-20) 07/02/21 07:35 Glucose 138 mg/dL (74-106) H 07/02/21 07:35 Vancomycin Trough 12.5 ug/mL (5.0-15.0) 07/02/21 07:35 Microbiology: Microbiology 06/28/21 19:47 Blood Culture (Wb) - Left Wrist Blood Culture - Preliminary No growth in 48 hours. 06/28/21 20:00 Blood Culture (Wb) - Right Hand Blood Culture - Preliminary No growth in 48 hours. 06/30/21 16:25 Mucosa - Nasopharyngeal Influenza Types A,B Direct FA (CATHY) - Final 06/28/21 19:45 Urine, Clean Catch Urine Culture - Final Mixed Gram Positive Organisms 06/29/21 14:20 Urine, Clean Catch Legionella Antigen - Final 06/29/21 14:20 Urine, Clean Catch Streptococcus pneumoniae Antigen (M - Final Weight used for dosin.7 kg Estimated Creatinine Clearance: 73ml/min Goal Trough: 15-20 mcg/mL Pharmacy Plan for Drug Dosing: Trough level today was 12.5 with goal of 15-20mcg/ml. Renal function of CrCl calculated to be ~73ml/min for adjusted body weight of 69.7kg. Will increase dose to 1gm iv q12h and get another trough before 4th dose. Pharmacy Service will continue to monitor and adjust dosing as required. Follow-Up Labs: Trough Vancomycin - 1.4.22 @2130 before 2200 dose
--- NOTE | 2021-07-02 13:28 | CASEMGMT ---
Social Work Consult: [facility] placement. Met with patient in room. Introduced self and director social welfare role. Patient agreeable to speak with this director social welfare. Patient reports concerns on returning to home and aware that recommendation is currently for patient to transition to a usp home. This director social welfare provided patient with in-network usp homes that are local to patient geographical region. Patient request are 1) [facility], 2) [facility]. Patient prior level was at home with spouse needing some help and plans to return. Patient also agreeable to this director social welfare contacting patient spouse, Ebony Telephone call to Ebony. Ebony agrees to all above. Support provided. Ebony confirms that plan is for patient to return to home. [facility] No answer. VM left. Will continue to follow. Deneen VALENTINE, MIKHAIL
--- NOTE | 2021-07-02 13:35 | CASEMGMT ---
Social Work Telephone call from [facility], Karen, unable to accept patient due to policy being to not accept patient with positive COVID until 21 days out. Telephone call to [facility]. [facility] reports beds are tight but to be able to review clinicals. [facility] confirms to be able to accept positive COVID at 12 days out. Clinical information faxed. PLAN: [facility]. Will continue to follow. Deneen VALNETINE, CLAYS
[2021-07-02 13:38] LABS: Pathologist Review Reviewed
[2021-07-02 13:48] LABS: Pathologist Review Reviewed
[2021-07-02 13:59] LABS: Absolute Neutrophil Count 9.6 X10^3/uL (2.0-7.7); Neutrophil # 9.64 X10^3/uL (2.7-7.7)
[2021-07-02 14:00] LABS: Absolute Lymphocyte Count 0.63 X10^3/uL (0.83-4.51); Lymphocyte # 0.63 X10^3/ul (0.83-4.51)
--- NOTE | 2021-07-02 14:16 | CASEMGMT ---
Social Work Transfer to extended care form initiated. Deneen Chin SUMMER ASSOCIATE, EZEKIEL-S
--- NOTE | 2021-07-02 14:22 | NURSING ---
pt back to bed with loose strong cough at times. exp wheezes to rt lungs. spo2 on 2l was 96% pt with no needs voiced. dozing off and resting well with call light within reach and bed exit on
[2021-07-02 14:26] LABS: Bedside Glucose 223 mg/dL (70-110)
--- NOTE | 2021-07-02 16:23 | CASEMGMT ---
Social Work Telephone call to Lubna [place]. Lubna reports to have not gotten a chance to look at the referral yet and will get back to [employer] social science research assistant tomorrow. Will continue to follow. Deneen Chin MSW, MIKHAIL
--- NOTE | 2021-07-02 16:56 | PCM.PN.HOSP ---
Subjective Subjective Patient is more awake and alert. Following simple commands. Sodium improved to 129. Objective Data Objective Data Vital Signs: Vital Signs Temp Pulse Resp BP Pulse Ox 97.8 F 81 18 130/64 H 96 07/02/21 10:41 07/02/21 13:16 07/02/21 13:16 07/02/21 10:41 07/02/21 12:41 Oxygen Flow Rate (L/min) 2 Oxygen Delivery Method Nasal Cannula Weight: 166 lb 14.239 oz Body Mass Index (BMI) 26.1 Intake & Output: Intake and Output for Last 24 Hours 06/30/21 07/01/21 07/02/21 23:59 23:59 23:59 Intake Total 1075 / 1075 1280 / 1280 660 / 660 Output Total 1200 / 1200 900 / 900 125 / 125 Balance -125 / -125 380 / 380 535 / 535 Medical Nutrition Assessment Dietitian: Malnutrition Criteria Met Start: 06/29/21 11:32 Freq: Status: Active Protocol: Document 06/29/21 11:32 AG (Rec: 06/29/21 11:32 [id number]) Nutrition Malnutrition Evidence of Malnutrition Exists Yes Malnutrition (severe): Acute Illness/Injury Evidenced By Suboptimal Energy Intake ( Severe),Weight Loss (Severe) Clinical Problem Acute Disease or Injury Related Malnutrition Etiology severe, acute malnutrition r/t inadequate energy intake w/ acute illness Signs/Symptoms as evidenced by unintentional wt loss of 11.5#/6.5% < 2 weeks; estimated PO intake meeting <75% of estimated energy needs >1 week Status Active Problem Recommendation Dietitian Recommendations/Changes continue regular diet d/t malnutrition; will fortify foods when possible and provide fortified pudding or magic cup w/ meals for additional calories/protein if consumed. Continue fluid restriction per hospitalist until etiology of hyponatremia is determined. Lab / Micro Data Result Diagrams: 07/02/21 07:35 07/02/21 07:35 Labs: Laboratory Results - last 24 hr 06/30/21 07:22: Cortisol 21.90 07/01/21 06:24: Diff Path Review Reviewed 07/01/21 21:46: POC Glucose 182 H 07/02/21 06:06: POC Glucose 146 H 07/02/21 07:35: WBC 10.6, RBC 3.25 L, Hgb 10.0 L, Hct 29.0 L, MCV 89.2, MCH 30.8, MCHC 34.5, RDW Std Deviation 49.8 H, RDW Coeff of Samreen 15.3 H, Plt Count 106 L, MPV 9.4, Neut % (Auto) Not Reportable, Absolute Neuts (auto) 9.6 H, Absolute Lymphs (auto) 0.63 L, Total Counted 100, Neutrophils % (Manual) 90 H, Band Neutrophils % 1, Lymphocytes % (Manual) 6 L, Monocytes % (Manual) 1, Metamyelocytes % 1, Myelocytes % 1 H, Diff Path Review Reviewed, Platelet Estimate MOD DEC, RBC Morphology NORM C+C 07/02/21 07:35: Sodium 129 L, Potassium 3.5, Chloride 97 L, Carbon Dioxide 26.0, Anion Gap 6, BUN 13, Creatinine 0.74, Estim Creat Clear Calc 51.41, Est GFR (MDRD) Af Amer 130, Est GFR (MDRD) Non-Af 107, BUN/Creatinine Ratio 17.6, Glucose 138 H, Calcium 8.3 L, Total Bilirubin 0.70, Direct Bilirubin 0.32 H, AST 12 L, ALT 22, Alkaline Phosphatase 93, Total Protein 4.7 L, Albumin 1.7 L, Globulin 3.0 07/02/21 07:35: Vancomycin Trough 12.5 07/02/21 11:07: POC Glucose 223 H Micro: Microbiology 06/28/21 19:47 Blood Culture (Wb) - Left Wrist Blood Culture - Preliminary No growth in 48 hours. 06/28/21 20:00 Blood Culture (Wb) - Right Hand Blood Culture - Preliminary No growth in 48 hours. 06/30/21 16:25 Mucosa - Nasopharyngeal Influenza Types A,B Direct FA (CATHY) - Final 06/28/21 19:45 Urine, Clean Catch Urine Culture - Final Mixed Gram Positive Organisms 06/29/21 14:20 Urine, Clean Catch Legionella Antigen - Final 06/29/21 14:20 Urine, Clean Catch Streptococcus pneumoniae Antigen (M - Final Physical Exam Narrative Physical exam General: Awake, oriented x2. Responds to simple questions appropriately. Fatigue HEENT: Atraumatic, PERRLA, EOMI, Normocephalic Oral: No Gingival or Mucosal Lesions/ Ulcerations Neck: Supple, No JVD, Negative Carotid Bruits Lungs: Air entry diminished in bilateral lung bases. Mild rhonchi/fine crepitations bilaterally. Cardiovascular: Regular rate, Regular Rhythm, Normal S1, Normal S2, No murmurs Abdomen: Bowel Sounds Present, Soft, Non Tender, Non-Distended : Urinary incontinent. No renal angle tenderness. No suprapubic tenderness. Extremities: No edema, Capillary Refill Less than 3 Seconds Skin: Bruises over knees. Musculoskeletal: bruise and a scab over left knee. ROM restricted. Low functional capacity. Neurological: Cranial nerves II-XII grossly intact, DTR 2+/4 and Symmetrical Psych/Mental Status: Intermittent confusion, possible dementia Assessment & Plan Assessment/Plan (1) Hypoxemia: (2) Pneumonia: (3) Hyponatremia: (4) Anorexia: PLAN: This is a deferral question intermittent was readmitted after successful treatment of remdesivir and dexamethasone without requiring home oxygen on June 19 and readmitted for shortness of breath, dry cough in 1 week along confusion. Hyponatremia was present on admission. 1. Acute hypoxic respiratory failure due to bilateral COVID-19 pneumonia: Patient had remdesivir and dexamethasone. Had Covid infection and was admitted before and discharged on June 19, 2021. Patient more confused and disoriented with low functional capacity and decreased appetite. Lactic acid 2.2. Patient empirically will start on vancomycin and Zosyn for concern of bacterial pneumonia. 1/3: No fever or chills. Leukocytosis improving. Seems responding to antibiotic. Blood culture negative for 48 hours. Urinary antigens negative. Influenza A and B antigen negative. Will discontinue vancomycin and Zosyn. Patient afebrile since admission. 2. CLL ?Patient is ibrutinib, which has been held at home started this week and we will continue to hold 3. Diabetes mellitus type II with hyperglycemia -patient's oral hypoglycemics held, except for glimepiride which will be continued. Placed on long acting insulin 10 u nightly, Accu-Cheks a.c. and at bedtime and covered with sliding scale insulin Glucose indestructible limited 4. GERD ?Patient is on PPI did continue 5. Hypertension - Blood pressure controlled, home medications continued with dose adjustment as needed 6. Dyslipidemia ?Patient is on gemfibrozil this was held on admission 7. Chronic pain syndrome ?Patient is on gabapentin, duloxetine -Tylenol PRN 8. Gout ?On allopurinol did continue 9. Moderate hyponatremia ?Normovolemic hypotonic hyponatremia due to glucose vs SIADH as a result of patient underlying lung condition. urine osmolarity more than serum osmolality. Urine sodium 58. 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 Serum sodium responding to sodium tablet is started on 06/30. Discussed with the manager sports 07/02: Sodium improved to 129. Serum cortisol 21.9. 10. Encephalopathy unclear acute or chronic possible dementia: Most probably due to metabolic or infectious. ABG 7.4 02/27/60 on 5 L of oxygeN. Try to correct underlying disorder DVT prophylaxis ?Lovenox 40 mg SC daily Continue diet Full code Lovenox 40 mg Active Medications Acetaminophen (Acetaminophen 325 Mg Tablet) 650 mg PO Q6H PRN PRN PRN Reason: Pain Score 1-10/Temp > 100.7 F Albuterol/Ipratropium (Ipratropium/Albuterol Sulfate 3 Ml Ampul.Neb) 3 ml INHALATION Q6HWA.RT [facility] Last Admin: 07/02/21 13:14 Dose: 3 ml Documented by: Allopurinol (Allopurinol 100 Mg Tablet) 100 mg PO DAILY [facility] Last Admin: 07/02/21 10:39 Dose: 100 mg Documented by: Aspirin (Aspirin 81 Mg Tab.Chew) 81 mg PO DAILYCM [facility] Last Admin: 07/02/21 09:00 Dose: 81 mg Documented by: Dextrose (Dextrose 50%-Water 25 Gm/50 Ml Disp.Syrin) 0 gm IV X1 PRN; Protocol PRN Reason: Hypoglycemia Doxazosin Mesylate (Doxazosin 1 Mg Tablet) 1 mg PO QHS [facility] Last Admin: 07/01/21 20:33 Dose: 1 mg Documented by: Duloxetine HCl (Duloxetine Hcl 60 Mg Capsule) 60 mg PO DAILY [facility] Last Admin: 07/02/21 09:00 Dose: 60 mg Documented by: Enoxaparin Sodium (Enoxaparin 40 Mg/0.4 Ml Syringe) 40 mg SC DAILY [facility] Last Admin: 07/02/21 09:00 Dose: 40 mg Documented by: Glucagon (Glucagon 1 Mg/Ml Syringe) 1 mg IM .X1 PRN PRN Reason: Hypoglycemia Guaifenesin (Guaifenesin/D-Methorphan Tab.Sr.12h) 1 tablet PO BID [facility] Last Admin: 07/02/21 09:01 Dose: 1 tablet Documented by: Sodium Chloride () 250 mls @ 15 mls/hr IV .[id number] PRN PRN Reason: Saline Flush Sodium Chloride () 250 mls @ 15 mls/hr IV .[id number] PRN PRN Reason: Additional IVPB Infusion Insulin Glargine (Insulin Glargine 100 Units/Ml Pen) 15 units SC QHS [facility] Last Admin: 07/01/21 21:48 Dose: 15 u Documented by: Insulin Human Lispro (Insulin Lispro 100 Unit/Ml Insuln.Pen) 0 unit SC [facility]; Protocol Last Admin: 07/02/21 11:11 Dose: 2 unit Documented by: Montelukast Sodium (Montelukast 10 Mg Tablet) 10 mg PO QHS [facility] Last Admin: 07/01/21 20:33 Dose: 10 mg Documented by: Nutritional Formula (Lactose Free) (Glucerna Shake 120 Ml Liquid) 120 ml PO TIDCM [facility] Last Admin: 07/02/21 11:12 Dose: 120 ml Documented by: Pantoprazole Sodium (Pantoprazole Sodium 20 Mg Tablet) 20 mg PO DAILY [facility] Last Admin: 07/02/21 09:01 Dose: 20 mg Documented by: Potassium Chloride (Potassium Chloride Oral Tablet 20 Meq) [facility] Stop: 07/04/21 17:01 Sodium Chloride (0.9% Saline Lock 10 Ml Syringe) 10 - 40 ml IV UD PRN PRN Reason: SALINE FLUSH Last Admin: 07/01/21 22:22 Dose: 10 ml Documented by: Sodium Chloride (Sodium Chloride 1 Gm Tablet) 2 gm PO BID [facility] Last Admin: 07/02/21 09:01 Dose: 2 gm Documented by: Charges/Coding Visit Charges Inpatient E&M: 23378 Subs Hosp L2
[2021-07-02] MEDS: Potassium Chloride Oral Tablet 20 MEQ 40 MEQ PO (17:05)
[2021-07-02 17:15] LABS: Bedside Glucose 276 mg/dL (70-110)
--- NOTE | 2021-07-02 17:26 | EKG12_ITS ---
Test Reason : RHYTHM CHANGE Blood Pressure : / mmHG Vent. Rate : 089 BPM Atrial Rate : 088 BPM P-R Int : 000 ms QRS Dur : 104 ms QT Int : 362 ms P-R-T Axes : 000 022 036 degrees QTc Int : 440 ms Sinus rhythm with frequent Premature ventricular complexes Abnormal ECG Confirmed by ORIANA SIMON, ALEJANDRA ([id number]), state editor MEGAN ARGUETA ([id number]) on 07/13/2021 7:50:21 AM Referred By: PATRICIO Confirmed By:DAIN GASTELUM MD
[2021-07-02] MEDS: Montelukast 10 MG Tablet PO (22:02)
[2021-07-02] MEDS: Doxazosin 1 MG Tablet PO (22:03)
[2021-07-02] MEDS: Acetaminophen 325 MG Tablet 650 MG PO (22:03)
[2021-07-02 22:21] LABS: Bedside Glucose 190 mg/dL (70-110)
[2021-07-03] VITALS (7 sets, daily range): BP systolic 111–151; BP diastolic 49–68; PULSE 61–88; RESP 18–20; TEMP 36.2–36.6; O2SAT 93–100
[2021-07-03] MEDS: Ipratropium/Albuterol Sulfate 3 ML AMPUL.NEB INHALATION ×3 (07:08→19:18)
[2021-07-03 07:10] LABS: Bedside Glucose 72 mg/dL (70-110)
[2021-07-03 07:54] LABS: Hematocrit 29.6 % (40-54); Mean Corp Hgb Conc 33.8 g/dL (32-36); Mean Corpuscular Hgb 30.5 pg (27.0-32.0); Mean Corpuscular Volume 90.2 fL (80-94); Mean Platelet Vol. 9.7 fl (6.2-12.0); POSITIVE COUNT YES; POSITIVE MORPHOLOGY YES; Platelet Count 127 K/mm3 (150-450); RBC Distribution Width CV 15.7 % (11.6-14.6); RBC Distribution Width SD 50.7 fl (35.1-43.9); Red Blood Count 3.28 M/mm3 (4.6-6.2); White Blood Count 9.8 K/mm3 (4.4-11.0)
[2021-07-03 08:01] LABS: Differential Indicated MANUAL DIFF
[2021-07-03 08:25] LABS: Anion Gap 6 (5-15); BUN 11 mg/dL (7-18); BUN/Creat Ratio 16.5 RATIO (10-20); Calcium,Total 8.4 mg/dL (8.5-10.1); Chloride 102 mmol/L (98-107); Creatinine, Serum 0.67 mg/dL (0.70-1.30); EST Glomerular Filtration Rate 120 mL/min (>60); Est Glom Filt Rate - Afr Amer 146 mL/min (>60); Estimated Creatinine Clearance 51.41 ml/min; Glucose 72 mg/dL (74-106); Potassium 3.6 mmol/L (3.5-5.1); Sodium Level 134 mmol/L (136-145)
[2021-07-03 09:03] LABS: Lymphocyte 11 % (19-41); Monocyte 3 % (0-10); Myelocyte 1 % (0-0); Neutrophil-Band 1 % (0-5); Neutrophil-Segmented 84 % (47-70); Platelet Estimate ADEQUATE (ADEQ); Red Cell Morphology N CYTIC NORMAL (NORM C&C); Total Cells Counted 100 (MANUAL DIFF)
[2021-07-03 09:04] LABS: Absolute Lymphocyte Count 1.08 X10^3/uL (0.83-4.51); Absolute Neutrophil Count 8.3 X10^3/uL (2.0-7.7)
[2021-07-03] MEDS: Enoxaparin 40 MG/0.4 ML Syringe SC (09:59)
[2021-07-03] MEDS: Potassium Chloride Oral Tablet 20 MEQ 40 MEQ PO (09:59)
[2021-07-03] MEDS: Sodium Chloride 1 GM Tablet 2 GM PO (09:59)
[2021-07-03] MEDS: Glucerna Shake 120 ML LIQUID PO ×3 (09:59→16:57)
[2021-07-03] MEDS: Allopurinol 100 MG Tablet PO (09:59)
[2021-07-03] MEDS: DULoxetine Hcl 60 MG Capsule PO (10:00)
[2021-07-03] MEDS: Aspirin 81 MG TAB.CHEW PO (10:00)
[2021-07-03] MEDS: guaiFENesin/D-Methorphan TAB.SR.12H 1 TABLET PO ×2 (10:00→22:55)
[2021-07-03] MEDS: Pantoprazole Sodium 20 MG Tablet PO (10:00)
--- NOTE | 2021-07-03 11:20 | PCM.PN.REN ---
Subjective Subjective Following for hyponatremia. No new issues today. The patient denies headache, nausea, or ataxia. Objective Data Objective Data Vital Signs: Vital Signs Temp Pulse Resp BP Pulse Ox 97.2 F L 79 18 111/49 L 93 07/03/21 09:00 07/03/21 09:00 07/03/21 09:00 07/03/21 09:00 07/03/21 09:00 Oxygen Flow Rate (L/min) 2 Oxygen Delivery Method Nasal Cannula Weight: 75.9 kg Body Mass Index (BMI) 26.1 Intake & Output: Intake and Output for Last 24 Hours 07/01/21 07/02/21 07/03/21 23:59 23:59 23:59 Intake Total 1280 / 1280 710 / 710 240 / 240 Output Total 900 / 900 125 / 125 600 / 600 Balance 380 / 380 585 / 585 -360 / -360 Medical Nutrition Assessment Dietitian: Malnutrition Criteria Met Start: 06/29/21 11:32 Freq: Status: Active Protocol: Document 06/29/21 11:32 (Rec: 06/29/21 11:32 [id number]) Nutrition Malnutrition Evidence of Malnutrition Exists Yes Malnutrition (severe): Acute Illness/Injury Evidenced By Suboptimal Energy Intake ( Severe),Weight Loss (Severe) Clinical Problem Acute Disease or Injury Related Malnutrition Etiology severe, acute malnutrition r/t inadequate energy intake w/ acute illness Signs/Symptoms as evidenced by unintentional wt loss of 11.5#/6.5% < 2 weeks; estimated PO intake meeting <75% of estimated energy needs >1 week Status Active Problem Recommendation Dietitian Recommendations/Changes continue regular diet d/t malnutrition; will fortify foods when possible and provide fortified pudding or magic cup w/ meals for additional calories/protein if consumed. Continue fluid restriction per hospitalist until etiology of hyponatremia is determined. Lab / Micro Data Result Diagrams: 07/03/21 07:21 07/03/21 07:21 Labs: Laboratory Results - last 24 hr 07/01/21 06:24: Diff Path Review Reviewed 07/02/21 07:35: Absolute Neuts (auto) 9.6 H, Absolute Lymphs (auto) 0.63 L, Diff Path Review Reviewed 07/02/21 11:07: POC Glucose 223 H 07/02/21 16:58: POC Glucose 276 H 07/02/21 22:09: POC Glucose 190 H 07/03/21 07:04: POC Glucose 72 07/03/21 07:21: WBC 9.8, RBC 3.28 L, Hgb 10.0 L, Hct 29.6 L, MCV 90.2, MCH 30.5, MCHC 33.8, RDW Std Deviation 50.7 H, RDW Coeff of Samreen 15.7 H, Plt Count 127 L, MPV 9.7, Neut % (Auto) Not Reportable, Absolute Neuts (auto) 8.3 H, Absolute Lymphs (auto) 1.08, Total Counted 100, Neutrophils % (Manual) 84 H, Band Neutrophils % 1, Lymphocytes % (Manual) 11 L, Monocytes % (Manual) 3, Myelocytes % 1 H, Diff Path Review October, Platelet Estimate ADEQUATE, RBC Morphology N CYTIC 07/03/21 07:21: Sodium 134 L, Potassium 3.6, Chloride 102, Carbon Dioxide 26.0, Anion Gap 6, BUN 11, Creatinine 0.67 L, Estim Creat Clear Calc 51.41, Est GFR (MDRD) Af Amer 146, Est GFR (MDRD) Non-Af 120, BUN/Creatinine Ratio 16.5, Glucose 72 L, Calcium 8.4 L Micro: Microbiology 06/28/21 19:47 Blood Culture (Wb) - Left Wrist Blood Culture - Preliminary No growth in 48 hours. 06/28/21 20:00 Blood Culture (Wb) - Right Hand Blood Culture - Preliminary No growth in 48 hours. 06/30/21 16:25 Mucosa - Nasopharyngeal Influenza Types A,B Direct FA (CATHY) - Final 06/28/21 19:45 Urine, Clean Catch Urine Culture - Final Mixed Gram Positive Organisms 06/29/21 14:20 Urine, Clean Catch Legionella Antigen - Final 06/29/21 14:20 Urine, Clean Catch Streptococcus pneumoniae Antigen (M - Final Physical Exam Narrative General: No apparent distress HEENT: Normocephalic, atraumatic. Mucous membrane moist. Heart: Normal S1, S2. There is a 2/6 systolic murmur. Lungs: Clear to auscultation anteriorly. Abdomen: Normal bowel sound, soft, nontender, no guarding or rebound. Extremities: No clubbing, cyanosis, or edema. Assessment & Plan Assessment/Plan (1) Hyponatremia: PLAN: The patient is a 85-year-old man who was recently admitted to the hospital for COVID-19 pneumonia. He was discharged last week on home oxygen. The patient returns on 06/28/2021 with confusion, anorexia, and failure to thrive at home. During work-up in the emergency department, the patient was found to have a serum sodium of 118 mmol/L. The patient has hypotonic hyponatremia. Serum sodium has improved to 134 mmol/L today. Therefore, he is back to baseline serum sodium. During the last admission, serum sodium was between 130 to 132 mmol/L. The patient has hypoosmolar hypotonic hyponatremia due to decreased solute intake. TSH and cortisol level were normal. Okay to continue duloxetine for now since serum sodium is improving. Continue to encourage patient to increase solute, particularly protein, intake. This will help attenuate recurrence of hyponatremia. Limit free water intake to less than 1.5 L/day. From my standpoint, if the patient can keep food/water down and if we can check serum sodium again in 2 to 3 days as outpatient, he can be discharged from my standpoint.
[2021-07-03] MEDS: Insulin Lispro 100 UNIT/ML INSULN.PEN SC ×3 (11:30→23:00)
--- NOTE | 2021-07-03 12:45 | CASEMGMT ---
SW received a voice mail from Lubna at [facility] and they are not able to accept patient. SW will talk with family to see the next choice. Anna Marie FALCON
[2021-07-03 13:26] LABS: Bedside Glucose 190 mg/dL (70-110)
--- NOTE | 2021-07-03 13:39 | CASEMGMT ---
SHARDA called patient's Ebony. SHARDA introduced self and role at [facility]. SHARDA explained that [facility] is not able to accept patient. Ebony said she called [employer] today and they told her the hospital has help that can come out to the home and so does Mark. SHARDA asked if she still wanted group home for patient for rehab. Ebony said insurance will pay for home health at 100%. SHARDA explained to Ebony that insurance only pays for therapy to come out a couple times a week and a nurse maybe once a week. SHARDA told her there will not be someone there to help her care for patient. Ebony still states she wants patient to come home as he would not do well at a group home anyway. Her home health preferences are [facility] and [facility]. SHARDA notified RAH FALCON
--- NOTE | 2021-07-03 14:49 | PN.HOSP_ITS ---
Subjective Subjective I talked to the patient . Patient has poor functional capacity and needs 1- 2 people assist to even stand up. As per PT note, walk 10 steps with assistance. Objective Data Objective Data Vital Signs: Vital Signs Temp Pulse Resp BP Pulse Ox 97.2 F L 78 18 111/49 L 93 07/03/21 09:00 07/03/21 13:40 07/03/21 13:40 07/03/21 09:00 07/03/21 09:00 Oxygen Flow Rate (L/min) 2 Oxygen Delivery Method Nasal Cannula Weight: 167 lb 5.294 oz Body Mass Index (BMI) 26.1 Intake & Output: Intake and Output for Last 24 Hours 07/01/21 07/02/21 07/03/21 23:59 23:59 23:59 Intake Total 1280 / 1280 710 / 710 240 / 240 Output Total 900 / 900 125 / 125 600 / 600 Balance 380 / 380 585 / 585 -360 / -360 Medical Nutrition Assessment Dietitian: Malnutrition Criteria Met Start: 06/29/21 11:32 Freq: Status: Active Protocol: Document 06/29/21 11:32 AG (Rec: 06/29/21 11:32 [id number]) Nutrition Malnutrition Evidence of Malnutrition Exists Yes Malnutrition (severe): Acute Illness/Injury Evidenced By Suboptimal Energy Intake ( Severe),Weight Loss (Severe) Clinical Problem Acute Disease or Injury Related Malnutrition Etiology severe, acute malnutrition r/t inadequate energy intake w/ acute illness Signs/Symptoms as evidenced by unintentional wt loss of 11.5#/6.5% < 2 weeks; estimated PO intake meeting <75% of estimated energy needs >1 week Status Active Problem Recommendation Dietitian Recommendations/Changes continue regular diet d/t malnutrition; will fortify foods when possible and provide fortified pudding or magic cup w/ meals for additional calories/protein if consumed. Continue fluid restriction per hospitalist until etiology of hyponatremia is determined. Lab / Micro Data Result Diagrams: 07/03/21 07:21 07/03/21 07:21 Labs: Laboratory Results - last 24 hr 07/02/21 16:58: POC Glucose 276 H 07/02/21 22:09: POC Glucose 190 H 07/03/21 07:04: POC Glucose 72 07/03/21 07:21: WBC 9.8, RBC 3.28 L, Hgb 10.0 L, Hct 29.6 L, MCV 90.2, MCH 30.5, MCHC 33.8, RDW Std Deviation 50.7 H, RDW Coeff of Samreen 15.7 H, Plt Count 127 L, MPV 9.7, Neut % (Auto) Not Reportable, Absolute Neuts (auto) 8.3 H, Absolute Lymphs (auto) 1.08, Total Counted 100, Neutrophils % (Manual) 84 H, Band Neutrophils % 1, Lymphocytes % (Manual) 11 L, Monocytes % (Manual) 3, Myelocytes % 1 H, Diff Path Review October, Platelet Estimate ADEQUATE, RBC Morphology N CYTIC 07/03/21 07:21: Sodium 134 L, Potassium 3.6, Chloride 102, Carbon Dioxide 26.0, Anion Gap 6, BUN 11, Creatinine 0.67 L, Estim Creat Clear Calc 51.41, Est GFR (MDRD) Af Amer 146, Est GFR (MDRD) Non-Af 120, BUN/Creatinine Ratio 16.5, Glucose 72 L, Calcium 8.4 L 07/03/21 11:30: POC Glucose 190 H Micro: Microbiology 06/28/21 19:47 Blood Culture (Wb) - Left Wrist Blood Culture - Preliminary No growth in 48 hours. 06/28/21 20:00 Blood Culture (Wb) - Right Hand Blood Culture - Preliminary No growth in 48 hours. 06/30/21 16:25 Mucosa - Nasopharyngeal Influenza Types A,B Direct FA (CATHY) - Final 06/28/21 19:45 Urine, Clean Catch Urine Culture - Final Mixed Gram Positive Organisms 06/29/21 14:20 Urine, Clean Catch Legionella Antigen - Final 06/29/21 14:20 Urine, Clean Catch Streptococcus pneumoniae Antigen (M - Final Physical Exam Narrative Physical exam General: Awake, oriented x2. Fatigue. HEENT: Atraumatic, PERRLA, EOMI, Normocephalic Oral: No Gingival or Mucosal Lesions/ Ulcerations Neck: Supple, No JVD, Negative Carotid Bruits Lungs: Air entry diminished in bilateral lung bases. Lungs clear. On 2 L of oxygen Cardiovascular: Regular rate, Regular Rhythm, Normal S1, Normal S2, No murmurs Abdomen: Bowel Sounds Present, Soft, Non Tender, Non-Distended : Urinary incontinent. No renal angle tenderness. No suprapubic tenderness. Extremities: No edema, Capillary Refill Less than 3 Seconds Skin: Bruises over knees. Musculoskeletal: bruise and a scab over left knee. ROM restricted. Low functional capacity. Neurological: Cranial nerves II-XII grossly intact, DTR 2+/4 and Symmetrical Psych/Mental Status: Intermittent confusion, possible dementia Assessment & Plan Assessment/Plan (1) Hypoxemia: (2) Pneumonia: (3) Hyponatremia: (4) Anorexia: PLAN: This is a deferral question intermittent was readmitted after successful treatment of remdesivir and dexamethasone without requiring home oxygen on June 19 and readmitted for shortness of breath, dry cough in 1 week along confusion. Hyponatremia was present on admission. 1. Acute hypoxic respiratory failure due to bilateral COVID-19 pneumonia: Patient had remdesivir and dexamethasone. Had Covid infection and was admitted before and discharged on June 19, 2021. Patient more confused and disoriented with low functional capacity and decreased appetite. Lactic acid 2.2. Patient empirically will start on vancomycin and Zosyn for concern of bacterial pneumonia. 07/02: No fever or chills. Leukocytosis improving. Seems responding to antibiotic. Blood culture negative for 48 hours. Urinary antigens negative. Influenza A and B antigen negative. Will discontinue vancomycin and Zosyn. Patient afebrile since admission. 07/03: No fever tachycardia after discontinuation of antibiotic for last 24 hours 2. CLL ?Patient is ibrutinib, which has been held at home started this week and we will continue to hold 3. Diabetes mellitus type II with hyperglycemia -patient's oral hypoglycemics held, continue Accu-Cheks a.c. and at bedtime and covered with sliding scale insulin 07/03: Glucose a.m. 72, hypoglycemia, glimepiride discontinued. Most recent 190. Lantus insulin decreased to 10 scrimmages daily. Patient not on glimepiride. 4. GERD ?Patient is on PPI did continue 5. Hypertension - Blood pressure controlled, home medications continued with dose adjustment as needed 6. Dyslipidemia ?Patient is on gemfibrozil this was held on admission 7. Chronic pain syndrome ?Patient is on gabapentin, duloxetine -Tylenol PRN 8. Gout ?On allopurinol did continue 9. Moderate hyponatremia ?Normovolemic hypotonic hyponatremia due to glucose vs SIADH as a result of patient underlying lung condition. urine osmolarity more than serum osmolality. Urine sodium 58. 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 Serum sodium responding to sodium tablet is started on 06/30. Discussed with the jammer operator 07/02: Sodium improved to 129. Serum cortisol 21.9. 07/03: Serum sodium 134. Sodium tablet decreased to 2 g daily. Discussed with the jammer operator 10. Encephalopathy unclear acute or chronic possible dementia: Most probably due to metabolic or infectious. ABG 7.4 02/27/60 on 5 L of oxygeN. Try to correct underlying disorder DVT prophylaxis 11. Failure to thrive, physical deconditioning and poor functional capacity: Patient required 1-2 people assist to walk 10 steps. Patient cannot independently stand up. Initially patient's said he he wants to take him home with home health care. I talked to the patient's and she has concern for the insurance to go to prison. I further talked to the home health care social worker, Anna Marie and she said TCU needs 21 days post Covid for acceptance. She will call his further. For now she agreed for taking him to SNF. ?Lovenox 40 mg SC daily Continue diet Full code Lovenox 40 mg Living will/advanced directive/end of life care: Patient does have living will or advanced directive. I talked to the patient's on the phone. After discussion of benefits/risks procedures involved with full code, DNR CC arrest and DNR CC, the patient's is states it is do not insert Comfort Care arrest. As per living will, patient's does not want artificial life support including intubation, tube feed, ventilator and/chest compression, central venous catheter, vasopressor and DC shock if needed Total time spent in qsky-ml-ymvp encounter in discussion of advanced directive 16 minutes. CODE STATUS changed to DNR CC arrest with no intubation Active Medications Acetaminophen (Acetaminophen 325 Mg Tablet) 650 mg PO Q6H PRN PRN PRN Reason: Pain Score 1-10/Temp > 100.7 F Albuterol/Ipratropium (Ipratropium/Albuterol Sulfate 3 Ml Ampul.Neb) 3 ml INHALATION Q6HWA.RT [facility] Last Admin: 07/02/21 13:14 Dose: 3 ml Documented by: Allopurinol (Allopurinol 100 Mg Tablet) 100 mg PO DAILY [facility] Last Admin: 07/02/21 10:39 Dose: 100 mg Documented by: Aspirin (Aspirin 81 Mg Tab.Chew) 81 mg PO DAILYCM [facility] Last Admin: 07/02/21 09:00 Dose: 81 mg Documented by: Dextrose (Dextrose 50%-Water 25 Gm/50 Ml Disp.Syrin) 0 gm IV X1 PRN; Protocol PRN Reason: Hypoglycemia Doxazosin Mesylate (Doxazosin 1 Mg Tablet) 1 mg PO QHS [facility] Last Admin: 07/01/21 20:33 Dose: 1 mg Documented by: Duloxetine HCl (Duloxetine Hcl 60 Mg Capsule) 60 mg PO DAILY [facility] Last Admin: 07/02/21 09:00 Dose: 60 mg Documented by: Enoxaparin Sodium (Enoxaparin 40 Mg/0.4 Ml Syringe) 40 mg SC DAILY [facility] Last Admin: 07/02/21 09:00 Dose: 40 mg Documented by: Glucagon (Glucagon 1 Mg/Ml Syringe) 1 mg IM .X1 PRN PRN Reason: Hypoglycemia Guaifenesin (Guaifenesin/D-Methorphan Tab.Sr.12h) 1 tablet PO BID [facility] Last Admin: 07/02/21 09:01 Dose: 1 tablet Documented by: Sodium Chloride () 250 mls @ 15 mls/hr IV .[id number] PRN PRN Reason: Saline Flush Sodium Chloride () 250 mls @ 15 mls/hr IV .[id number] PRN PRN Reason: Additional IVPB Infusion Insulin Glargine (Insulin Glargine 100 Units/Ml Pen) 15 units SC QHS [facility] Last Admin: 07/01/21 21:48 Dose: 15 u Documented by: Insulin Human Lispro (Insulin Lispro 100 Unit/Ml Insuln.Pen) 0 unit SC [facility]; Protocol Last Admin: 07/02/21 11:11 Dose: 2 unit Documented by: Montelukast Sodium (Montelukast 10 Mg Tablet) 10 mg PO QHS [facility] Last Admin: 07/01/21 20:33 Dose: 10 mg Documented by: Nutritional Formula (Lactose Free) (Glucerna Shake 120 Ml Liquid) 120 ml PO TIDCM [facility] Last Admin: 07/02/21 11:12 Dose: 120 ml Documented by: Pantoprazole Sodium (Pantoprazole Sodium 20 Mg Tablet) 20 mg PO DAILY [facility] Last Admin: 07/02/21 09:01 Dose: 20 mg Documented by: Potassium Chloride (Potassium Chloride Oral Tablet 20 Meq) 40 meq PO DAILYCM [facility] Stop: 07/04/21 17:01 Sodium Chloride (0.9% Saline Lock 10 Ml Syringe) 10 - 40 ml IV UD PRN PRN Reason: SALINE FLUSH Last Admin: 07/01/21 22:22 Dose: 10 ml Documented by: Sodium Chloride (Sodium Chloride 1 Gm Tablet) 2 gm PO BID [facility] Last Admin: 07/02/21 09:01 Dose: 2 gm Documented by: Charges/Coding Visit Charges Inpatient E&M: 36452 Subs Hosp L2 Procedures Hospitalists Procedures: 92916 Advncd Care Plan 30 Min
--- NOTE | 2021-07-03 15:15 | CASEMGMT ---
Physician called patient's Ebony and explained it would not be safe to take patient home. SW called Ebony back. Discussed options and concerns. Rhina is worried about finances. Days 1-20 are covered at 100% and then after that there is a co-pay. Ebony said patient also has [facility]. Ebony was talking to Nathan at the [facility] in [place] and she is working on getting them help at home. SHARDA asked if patient is 100% service connected and she said yes. SHARDA told Ebony that SW will call Nathan and see what he is eligible for through [facility]. SHARDA called Nathan at the [facility] and patient is not 100% service connected. Patient is not eligible for the [facility] to pay for a [facility] stay. Nathan said she told patient's this yesterday. Nathan did tell Ebony that she can work on getting help in the home. SHARDA called Ebony back and let her know that patient is not eligible for the [facility] to pay for a snf. SHARDA went over the other snf options and her first choice [facility] and then [facility]. SHARDA told her SW will work on referral. SHARDA called Michelle at [facility] and left a message. SHARDA also faxed referral. Anna aMrie Fernández CARBURETOR REBUILDER EZEKIEL
[2021-07-03 16:05] LABS: Bedside Glucose 204 mg/dL (70-110)
--- NOTE | 2021-07-03 16:10 | CASEMGMT ---
SHARDA received a call from [facility]. They can accept patient. SHARDA will notify patient's . Plan: d/c to [facility] Anna [facility] FALCON
[2021-07-03 22:24] LABS: Vancomycin, Trough Level 6.6 ug/mL (5.0-15.0)
[2021-07-03] MEDS: Doxazosin 1 MG Tablet PO (22:55)
[2021-07-03] MEDS: Montelukast 10 MG Tablet PO (22:55)
[2021-07-03 23:16] LABS: Bedside Glucose 222 mg/dL (70-110)
[2021-07-04 03:01] VITALS: BP 119/53; PULSE 72; RESP 20; TEMP 36.5; O2SAT 95
[2021-07-04 05:25] LABS: Absolute Lymphocyte Count 0.96 X10^3/uL (0.83-4.51); Absolute Neutrophil Count 7.4 X10^3/uL (2.0-7.7); Basophil# 0.03 X10^3/uL; Basophil% 0.3 % (0-1); Eosinophil# 0.16 X10^3/uL; Eosinophils% 1.7 % (0-5); Hematocrit 29.6 % (40-54); Hemoglobin 10.2 g/dL (13.0-16.5); Lymphocyte # 0.96 X10^3/ul (0.83-4.51); Lymphocyte % 10.1 % (19-41); Mean Corp Hgb Conc 34.5 g/dL (32-36); Mean Corpuscular Hgb 31.5 pg (27.0-32.0); Mean Corpuscular Volume 91.4 fL (80-94); Mean Platelet Vol. 9.2 fl (6.2-12.0); Monocyte# 0.46 X10^3/uL; Monocyte% 4.8 % (0-10); NRBC Flagged by Analyzer 0 % (0-5); Neutrophil # 7.44 X10^3/uL (2.7-7.7); Neutrophil % 78.5 % (47-70); Platelet Count 134 K/mm3 (150-450); RBC Distribution Width CV 15.5 % (11.6-14.6); RBC Distribution Width SD 51.7 fl (35.1-43.9); Red Blood Count 3.24 M/mm3 (4.6-6.2); White Blood Count 9.5 K/mm3 (4.4-11.0)
[2021-07-04 05:55] LABS: Anion Gap 7 (5-15); BUN 11 mg/dL (7-18); BUN/Creat Ratio 14.8 RATIO (10-20); Calcium,Total 8.1 mg/dL (8.5-10.1); Chloride 101 mmol/L (98-107); Creatinine, Serum 0.74 mg/dL (0.70-1.30); EST Glomerular Filtration Rate 106 mL/min (>60); Est Glom Filt Rate - Afr Amer 129 mL/min (>60); Estimated Creatinine Clearance 51.41 ml/min; Glucose 79 mg/dL (74-106); Potassium 3.9 mmol/L (3.5-5.1); Sodium Level 133 mmol/L (136-145)
[2021-07-04 07:10] LABS: Bedside Glucose 76 mg/dL (70-110)
[2021-07-04] MEDS: Ipratropium/Albuterol Sulfate 3 ML AMPUL.NEB INHALATION ×2 (07:16→14:08)
[2021-07-04 07:17] VITALS: PULSE 65; RESP 16; O2SAT 94
[2021-07-04 10:13] VITALS: BP 124/56; PULSE 76; RESP 20; TEMP 36.4; O2SAT 97
[2021-07-04] MEDS: guaiFENesin/D-Methorphan TAB.SR.12H 1 TABLET PO (10:16)
[2021-07-04] MEDS: Potassium Chloride Oral Tablet 20 MEQ 40 MEQ PO (10:16)
[2021-07-04] MEDS: Allopurinol 100 MG Tablet PO (10:17)
[2021-07-04] MEDS: Enoxaparin 40 MG/0.4 ML Syringe SC (10:17)
[2021-07-04] MEDS: DULoxetine Hcl 60 MG Capsule PO (10:17)
[2021-07-04] MEDS: Sodium Chloride 1 GM Tablet 2 GM PO (10:17)
[2021-07-04] MEDS: Pantoprazole Sodium 20 MG Tablet PO (10:17)
[2021-07-04] MEDS: Aspirin 81 MG TAB.CHEW PO (10:17)
[2021-07-04] MEDS: Insulin Lispro 100 UNIT/ML INSULN.PEN SC (10:47)
--- NOTE | 2021-07-04 11:03 | CASEMGMT ---
SHARDA called patient's and let her know that [facility] can accept patient. SHARDA also told her that he will likely go today. SHARDA will notify her once transport is arranged. She thanked SHARDA for the update. Plan: d/c to [facility] under skilled level of care. Anna Marie FALCON
--- NOTE | 2021-07-04 12:06 | PCM.TXEXTCAR ---
Diet 06/28/21 21:27 Diet: Regular - General Food consistency:: Regular Liquid Consistency:: Regular/Thin Dietary Modifications:: Fortified Foods Diet Comments: fortified pudding or magic cup w/ every meal Routine Orders/Code Status O2 Liters per Minute: 2 O2 Frequency: Continuous Keep PO Greater than or Equal to (%): 92 Routine Lab Work: CBC and BMP Code Status: DNRCC-A Wound(s) nose: Wound Type: scab left knee: Wound Type: scab Therapies Physical Therapy: Eval and Treat Occupational Therapy: Eval and Treat Problem/Diagnosis (1) Hypoxemia: Status: Inactive (2) Pneumonia: Status: Acute (3) Hyponatremia: Status: Acute Comment: The patient is a 85-year-old man who was recently admitted to the hospital for COVID-19 pneumonia. He was discharged last week on home oxygen. The patient returns with confusion, anorexia, and failure to thrive at home. During work-up in the emergency department, the patient was found to have a serum sodium of 118 mmol/L. Serum sodium has improved to 125 mmol/L today, but this is still below his usual baseline serum sodium. During the last admission, serum sodium was between 130 to 132 mmol/L. Suspect that the patient has hypoosmolar hypotonic hyponatremia due to decreased intake. Another possibility is hyperglycemia induced hyponatremia although serum sodium would still be below 135 even after correcting for hyperglycemia. Another possibility would be hypoosmolar isotonic hyponatremia due to SIADH which could be related to recent pulmonary infection. However, this is a diagnosis of exclusion. Although possible, hyponatremia due to SNRI such as duloxetine is rare. Okay to continue duloxetine for now. urine sodium 58, urine osmolality-P, serum osmolality>250 We will also check TSH and a.m. cortisol levels to be complete. Since serum sodium is improving, there is no need for hypertonic saline at this point. Recheck serum sodium in a.m. start sodium chloride 2 gm PO BID (4) Anorexia: Status: Acute Allergies/Procedures Done in Hospital Allergies Udokexf-HCI-SlW Reductase Inhibitor [Btspzrn-Avk-Mkg Reductase Inhibitor] Allergy (Verified 06/21/21 12:09) Pain in joints prednisone Adverse Reaction (Verified 06/21/21 12:09) Nausea/Vom/Diarrhea Procedures: None Type of Care/Length of Stay Estimated LOS: Convalescent Care Less Than 30 days Type of Care Needed: Skilled Rehab Potential: Good Prognosis: Good Additional Orders/Day of Discharge Day of Discharge: 07/04/21 Dietary and Speech Recommendations Dietitian Recommendations/Changes: continue regular diet and fortified foods when possible; will continue fortified pudding or magic cup w/ meals and 120mL Glucerna TID for additional calories/protein if consumed. Continue fluid restriction per nephrology. Discharge Plan Admission Admit Date/Time: 06/28/21 23:00 Attending Provider: Gloria Anthony Primary Care Provider: Daniel Camejo Consulting Providers: Kevin Karimi Discharge Orders/Prescriptions Prescriptions: No Action metformin 500 MG tablet 1,000 mg PO BID RF: 0 allopurinol 100 MG tablet 100 mg PO DAILY RF: 0 cyanocobalamin (vitamin B-12) 1,000 MCG/ML solution 1,000 mcg IM Q30D RF: 0 gabapentin 300 MG capsule 300 mg PO TID RF: 0 omeprazole 20 MG capsule 20 mg PO DAILY RF: 0 cholecalciferol (vitamin D3) 5,000 UNIT capsule 5,000 unit PO DAILY RF: 0 ibrutinib 140 MG capsule 420 mg PO LUNCH RF: 0 montelukast 10 MG tablet 10 mg PO QHS RF: 0 albuterol sulfate [Ventolin HFA] 1 INHALER inhaler 2 puff inhalation Q4H PRN PRN (Reason: Wheezing) Qty: 1 RF: 0 multivitamin Tablet 1 tab PO DAILY RF: 0 oxycodone-acetaminophen 5-325 mg Tablet 1 tab PO BID PRN (Reason: Pain) RF: 0 hydroxyzine HCl 25 mg Tablet 25 mg PO TID PRN (Reason: Anxiety) RF: 0 Renal Caps 1 mg Capsule 1 cap PO DAILY RF: 0 Restasis 0.05 % Dropperette 1 drp EACH EYE Q12H RF: 0 duloxetine 60 mg Capsule,Delayed Release(Dr/Ec) 60 mg PO DAILY RF: 0 alogliptin [Nesina] 12.5 mg Tablet 12.5 mg PO DAILY RF: 0 glimepiride [Amaryl] 4 mg tablet 4 mg PO DAILY 30 Days Qty: 60 RF: 0 aspirin [Aspirin Childrens] 81 mg tablet,chewable 81 mg PO DAILY 30 Days Qty: 30 RF: 0 dexamethasone 6 mg tablet 6 mg PO DAILY RF: 0 terazosin 1 mg Tablet 1 mg PO QHS RF: 0
--- NOTE | 2021-07-04 12:09 | DS.PCM_ITS ---
Providers Date of Admission: 06/28/21 Primary Care Physician: Dr. Daniel Camejo, Consultations 06/29/21 18:05 Consult: Nephrology Routine Consulting Provider: Kevin Karimi Reason for Consult: SEVERE Hyponatremia EMERGENT Consult: No MD Notified: Yes Date Notified: 06/29/21 Time Notified: 18:05 Method of Notification: Answering Service Reason For Visit: PNEUMONIA, ACUTE RESPIRATORY FAILURE Diagnosis Discharge Diagnosis (1) Hypoxemia: Status: Inactive Code(s): R09.02 - Hypoxemia (2) Pneumonia: Status: Acute Code(s): J18.9 - Pneumonia, unspecified organism (3) Hyponatremia: Status: Acute Code(s): E87.1 - Hypo-osmolality and hyponatremia (4) Anorexia: Status: Acute Code(s): R63.0 - Anorexia Medications at Discharge Home Medications allopurinol 100 mg PO DAILY 04/29/17 cholecalciferol (vitamin D3) 5,000 unit PO DAILY 04/29/17 cyanocobalamin (vitamin B-12) 1,000 mcg IM Q30D 04/29/17 gabapentin 300 mg PO TID 04/29/17 omeprazole 20 mg PO DAILY 04/29/17 ibrutinib 420 mg PO LUNCH 02/18/19 montelukast 10 mg PO QHS 04/14/20 albuterol sulfate [Ventolin HFA] 2 puff INHALATION Q4H PRN PRN #1 inhaler 12/11/20 Renal Caps 1 cap PO DAILY 06/17/21 Restasis 1 drp EACH EYE Q12H 06/17/21 alogliptin [Nesina] 12.5 mg PO DAILY 06/17/21 duloxetine 60 mg PO DAILY 06/17/21 hydroxyzine HCl 25 mg PO TID PRN 06/17/21 multivitamin 1 tab PO DAILY 06/17/21 oxycodone-acetaminophen 1 tab PO BID PRN 06/17/21 aspirin [Aspirin Childrens] 81 mg PO DAILY 30 Days #30 tab 06/19/21 terazosin 1 mg PO QHS 06/21/21 dextromethorphan-guaifenesin [Mucus DM] 1 tab PO BID #0 tab 07/04/21 enoxaparin 40 mg SUBCUT DAILY #0 ml 07/04/21 insulin glargine [Lantus Solostar U-100 Insulin] 10 units SUBCUT QHS #0 ml 07/04/21 insulin lispro [Humalog KwikPen Insulin] See Protocol SUBCUT ACHS #0 ml 07/04/21 ipratropium-albuterol 3 ml INHALATION Q6HWA.RT #0 ml 07/04/21 nut.tx.gluc intol,lf,soy-fiber [Glucerna 1.2 Gaudencio] 120 ml PO TIDCM #0 ml 07/04/21 sodium chloride 2 g PO DAILY #0 tab 07/04/21 Medical Records Data Medical Nutrition Assessment Dietitian: Malnutrition Criteria Met Start: 06/29/21 11:32 Freq: Status: Active Protocol: Document 06/29/21 11:32 AG (Rec: 06/29/21 11:32 [id number]) Nutrition Malnutrition Evidence of Malnutrition Exists Yes Malnutrition (severe): Acute Illness/Injury Evidenced By Suboptimal Energy Intake ( Severe),Weight Loss (Severe) Clinical Problem Acute Disease or Injury Related Malnutrition Etiology severe, acute malnutrition r/t inadequate energy intake w/ acute illness Signs/Symptoms as evidenced by unintentional wt loss of 11.5#/6.5% < 2 weeks; estimated PO intake meeting <75% of estimated energy needs >1 week Status Active Problem Recommendation Dietitian Recommendations/Changes continue regular diet d/t malnutrition; will fortify foods when possible and provide fortified pudding or magic cup w/ meals for additional calories/protein if consumed. Continue fluid restriction per hospitalist until etiology of hyponatremia is determined. Weight / BMI Weight Weight: 77.2 kg Body Mass Index (BMI) 26.1 ABG / Lab / Microbiology Data Result Diagrams: 07/04/21 05:00 07/04/21 05:01 Laboratory: Laboratory Results - last 24 hr 07/03/21 11:30: POC Glucose 190 H 07/03/21 15:59: POC Glucose 204 H 07/03/21 21:30: Vancomycin Trough 6.6 07/03/21 22:58: POC Glucose 222 H 07/04/21 05:00: WBC 9.5, RBC 3.24 L, Hgb 10.2 L, Hct 29.6 L, MCV 91.4, MCH 31.5, MCHC 34.5, RDW Std Deviation 51.7 H, RDW Coeff of Samreen 15.5 H, Plt Count 134 L, MPV 9.2, Immature Gran % (Auto) 4.600 H, Neut % (Auto) 78.5 H, Lymph % (Auto) 10.1 L, [place] % (Auto) 4.8, Eos % (Auto) 1.7, Baso % (Auto) 0.3, Absolute Neuts (auto) 7.4, Absolute Lymphs (auto) 0.96, Nucleated RBC % 0 07/04/21 05:01: Sodium 133 L, Potassium 3.9, Chloride 101, Carbon Dioxide 25.0, Anion Gap 7, BUN 11, Creatinine 0.74, Estim Creat Clear Calc 51.41, Est GFR (MDRD) Af Amer 129, Est GFR (MDRD) Non-Af 106, BUN/Creatinine Ratio 14.8, Glucose 79, Calcium 8.1 L 07/04/21 06:28: POC Glucose 76 Microbiology: Microbiology 06/28/21 19:47 Blood Culture (Wb) - Left Wrist Blood Culture - Final No growth in 5 days. 06/28/21 20:00 Blood Culture (Wb) - Right Hand Blood Culture - Final No growth in 5 days. 06/30/21 16:25 Mucosa - Nasopharyngeal Influenza Types A,B Direct FA (CATHY) - Final 06/28/21 19:45 Urine, Clean Catch Urine Culture - Final Mixed Gram Positive Organisms 06/29/21 14:20 Urine, Clean Catch Legionella Antigen - Final 06/29/21 14:20 Urine, Clean Catch Streptococcus pneumoniae Antigen (M - Final Meaningful Use Info Meaningful Use Diagnoses (Choose all that apply): None applicable Discharge Plan Admission Admit Date/Time: 06/28/21 23:00 Primary Reason for Your Visit: /Shortness of breath/cough Attending Provider: Gloria Anthony Primary Care Provider: Daniel Camejo Consulting Providers: Kevin Karimi Discharge Orders/Prescriptions Prescriptions: New ipratropium-albuterol 0.5 mg-3 mg(2.5 mg base)/3 mL Solution For Nebulization 3 ml inhalation Q6HWA.RT Qty: 0 RF: 0 sodium chloride 1 gram Tablet 2 g PO DAILY Qty: 0 RF: 0 Mucus DM 30-600 mg Tablet Extended Release 12 Hr 1 tab PO BID Qty: 0 RF: 0 enoxaparin 40 mg/0.4 mL Syringe 40 mg subcut DAILY Qty: 0 RF: 0 insulin lispro [Humalog KwikPen Insulin] 100 unit/mL Insulin Pen See Protocol unit subcut ACHS Qty: 0 RF: 0 Lantus Solostar U-100 Insulin 100 unit/mL (3 mL) Insulin Pen 10 units subcut QHS Qty: 0 RF: 0 Glucerna 1.2 Gaudencio 0.06-1.2 gram-kcal/mL Liquid 120 ml PO TIDCM Qty: 0 RF: 0 Continued allopurinol 100 MG tablet 100 mg PO DAILY RF: 0 cyanocobalamin (vitamin B-12) 1,000 MCG/ML solution 1,000 mcg IM Q30D RF: 0 gabapentin 300 MG capsule 300 mg PO TID RF: 0 omeprazole 20 MG capsule 20 mg PO DAILY RF: 0 cholecalciferol (vitamin D3) 5,000 UNIT capsule 5,000 unit PO DAILY RF: 0 ibrutinib 140 MG capsule 420 mg PO LUNCH RF: 0 montelukast 10 MG tablet 10 mg PO QHS RF: 0 albuterol sulfate [Ventolin HFA] 1 INHALER inhaler 2 puff inhalation Q4H PRN PRN (Reason: Wheezing) Qty: 1 RF: 0 multivitamin Tablet 1 tab PO DAILY RF: 0 oxycodone-acetaminophen 5-325 mg Tablet 1 tab PO BID PRN (Reason: Pain) RF: 0 hydroxyzine HCl 25 mg Tablet 25 mg PO TID PRN (Reason: Anxiety) RF: 0 Renal Caps 1 mg Capsule 1 cap PO DAILY RF: 0 Restasis 0.05 % Dropperette 1 drp EACH EYE Q12H RF: 0 duloxetine 60 mg Capsule,Delayed Release(Dr/Ec) 60 mg PO DAILY RF: 0 alogliptin [Nesina] 12.5 mg Tablet 12.5 mg PO DAILY RF: 0 aspirin [Aspirin Childrens] 81 mg tablet,chewable 81 mg PO DAILY 30 Days Qty: 30 RF: 0 terazosin 1 mg Tablet 1 mg PO QHS RF: 0 Discontinued metformin 500 MG tablet 1,000 mg PO BID RF: 0 glimepiride [Amaryl] 4 mg tablet 4 mg PO DAILY 30 Days Qty: 60 RF: 0 dexamethasone 6 mg tablet 6 mg PO DAILY RF: 0 Referrals / Follow Up: Camejo,Daniel, DO [Primary Care Provider] - Within 1 Month Disposition Disposition (needs filled in before D/C Order can be placed): [facility] Facility Charges/Coding Visit Charges Inpatient E&M: 36177 SNF Disch >30 Min
--- NOTE | 2021-07-04 12:14 | DS.PCM_ITS ---
Providers Date of Admission: 06/28/21 Primary Care Physician: Dr. Daniel Camejo, Consultations 06/29/21 18:05 Consult: Nephrology Routine Consulting Provider: Kevin Karimi Reason for Consult: SEVERE Hyponatremia EMERGENT Consult: No MD Notified: Yes Date Notified: 06/29/21 Time Notified: 18:05 Method of Notification: Answering Service Reason For Visit: PNEUMONIA, ACUTE RESPIRATORY FAILURE Diagnosis Discharge Diagnosis (1) Pneumonia: Status: Acute Code(s): J18.9 - Pneumonia, unspecified organism (2) Hyponatremia: Status: Acute Code(s): E87.1 - Hypo-osmolality and hyponatremia (3) Anorexia: Status: Acute Code(s): R63.0 - Anorexia Medications at Discharge Home Medications allopurinol 100 mg PO DAILY 04/29/17 cholecalciferol (vitamin D3) 5,000 unit PO DAILY 04/29/17 cyanocobalamin (vitamin B-12) 1,000 mcg IM Q30D 04/29/17 gabapentin 300 mg PO TID 04/29/17 omeprazole 20 mg PO DAILY 04/29/17 ibrutinib 420 mg PO LUNCH 02/18/19 montelukast 10 mg PO QHS 04/14/20 albuterol sulfate [Ventolin HFA] 2 puff INHALATION Q4H PRN PRN #1 inhaler 12/11/20 Renal Caps 1 cap PO DAILY 06/17/21 Restasis 1 drp EACH EYE Q12H 06/17/21 alogliptin [Nesina] 12.5 mg PO DAILY 06/17/21 duloxetine 60 mg PO DAILY 06/17/21 hydroxyzine HCl 25 mg PO TID PRN 06/17/21 multivitamin 1 tab PO DAILY 06/17/21 oxycodone-acetaminophen 1 tab PO BID PRN 06/17/21 aspirin [Aspirin Childrens] 81 mg PO DAILY 30 Days #30 tab 06/19/21 terazosin 1 mg PO QHS 06/21/21 dextromethorphan-guaifenesin [Mucus DM] 1 tab PO BID #0 tab 07/04/21 enoxaparin 40 mg SUBCUT DAILY #0 ml 07/04/21 insulin glargine [Lantus Solostar U-100 Insulin] 10 units SUBCUT QHS #0 ml 07/04/21 insulin lispro [Humalog KwikPen Insulin] See Protocol SUBCUT ACHS #0 ml 07/04/21 ipratropium-albuterol 3 ml INHALATION Q6HWA.RT #0 ml 07/04/21 nut.tx.gluc intol,lf,soy-fiber [Glucerna 1.2 Gaudencio] 120 ml PO TIDCM #0 ml 07/04/21 sodium chloride 2 g PO DAILY #0 tab 07/04/21 Hospital Course Operations None Procedures None Summary of Care Provided Minutes Spent on Discharge: 45 Hospital Course: Mr. Everett is an 85-year-old white male who presented to the emergency department at [facility] on 06/28/2021 for confusion and shortness of breath with a dry cough. The patient had been hospitalized here from 06/17 to 06/19/2021 and was diagnosed with COVID-19 pneumonia at that time. He completed remdesivir and Decadron and was discharged home without requiring oxygen. On 06/21/2021 he presented to the emergency department secondary to shortness of breath and was discharged with oxygen at that time. Since then they reported that he had increased confusion and he was therefore brought back to the emergency department on 06/28/2021 and admitted. He had become more confused and was eating less and had decreased p.o. intake. He has CLL and his ibrutinib has been held per the recommendation of his oncologist. On admission he had a leukocytosis and was hypoxic requiring 4 L of nasal cannula to maintain an oxygen saturation of 92%. He was given Zosyn and vancomycin upon admission. Empiric antibiotics were continued. His sodium was also noted to be significantly low on admission with a serum sodium of 118. It did improve with IV hydration to 125 but did remain low compared to his baseline and therefore nephrology was consulted. He was diagnosed with hypoosmolar hypotonic hyponatremia due to decreased p.o. intake. His mental status did improve with sodium correction. Nephrology recommended increased solute intake, free water limitation to less than 1.5 L/day and sodium tablets were started. On the day of discharge his sodium had improved to 133 and the patient's mental status was much improved. Nephrology recommended that his duloxetine be continued as his sodium was improving despite him being on this. They also mary mmended a repeat BMP in the next 2 to 3 days to recheck his sodium and if he remains stable his sodium tablets may be discontinued. I would recommend periodic reevaluation of his serum sodium. Infectious work-up was negative and vancomycin and Zosyn were discontinued on 07/02/2021. He has a diagnosis of diabetes at baseline and his oral hypoglycemics were held during his hospitalization and he was started on Lantus 10 units daily as well as a sliding scale. I recommend that we continue this until his p.o. intake is more consistent and then convert him back to his home oral hypoglycemics which included metformin 1000 mg p.o. twice daily, and glimepiride 4 mg p.o. daily. We will go ahead and continue his Nesina. He will need continued physical occupational therapy. Upon evaluation by physical and Occupational Therapy it was found that he required significant assistance and skilled facility was recommended. We recommend follow-up with his primary care physician within the next month. He was discharged to the long term facility in stable condition. Discharge diagnoses: Acute hypoxic respiratory failure secondary to Covid pneumonia COVID-19 pneumonia Acute hyponatremia Metabolic encephalopathy CLL DM-2 GERD Hypertension Hyperlipidemia Failure to thrive Chronic pain Gout Physical Exam Const alert, oriented x3, no apparent distress and average body habitus Constitutional Narrative: Older white male sitting up in a chair at the bedside, appears comfortable, nontoxic General Appearance: cooperative, comfortable, well kempt and well developed Exam Limitations: no limitations Nutritional Appearance: overweight HEENT normocephalic, head/scalp atraumatic and moist oral mucous membranes HEENT Narrative: [place], dentures in place Eyes PERRL, EOMs intact bilaterally and conjunctivae normal Eyes Narrative: No scleral icterus Neck no lymphadenopathy, supple and no JVD Neck Narrative: Trachea midline, no thyroid enlargement Resp normal respiratory effort, no retractions, no use of accessory muscles and No clear to auscultation bilaterally Resp Narrative: Diffusely diminished Auscultation: Negative for crackles, rales, rhonchi or wheezes Cardio regular rate, regular rhythm, S1 normal heart sound, S2 normal heart sound, no murmurs, no rub, no gallops, no clicks and no JVD GI normal to inspection, nondistended, normoactive bowel sounds, soft to palpation, non-tender and non-distended Extremity no clubbing, cyanosis or edema Neuro oriented x3, CN's II-XII intact bilaterally, moves all extremities and no focal motor deficits Neuro Narrative: Marked generalized weakness Sensorium / Orientation: awake and alert Speech: speech normal Psych affect normal Psych Narrative: Very pleasant Medical Records Data Medical Nutrition Assessment Dietitian: Malnutrition Criteria Met Start: 06/29/21 11:32 Freq: Status: Active Protocol: Document 06/29/21 11:32 AG (Rec: 06/29/21 11:32 AG [id number]) Nutrition Malnutrition Evidence of Malnutrition Exists Yes Malnutrition (severe): Acute Illness/Injury Evidenced By Suboptimal Energy Intake ( Severe),Weight Loss (Severe) Clinical Problem Acute Disease or Injury Related Malnutrition Etiology severe, acute malnutrition r/t inadequate energy intake w/ acute illness Signs/Symptoms as evidenced by unintentional wt loss of 11.5#/6.5% < 2 weeks; estimated PO intake meeting <75% of estimated energy needs >1 week Status Active Problem Recommendation Dietitian Recommendations/Changes continue regular diet d/t malnutrition; will fortify foods when possible and provide fortified pudding or magic cup w/ meals for additional calories/protein if consumed. Continue fluid restriction per hospitalist until etiology of hyponatremia is determined. Weight / BMI Weight Weight: 77.2 kg Body Mass Index (BMI) 26.1 ABG / Lab / Microbiology Data Result Diagrams: 07/04/21 05:00 07/04/21 05:01 Laboratory: Laboratory Results - last 24 hr 07/03/21 11:30: POC Glucose 190 H 07/03/21 15:59: POC Glucose 204 H 07/03/21 21:30: Vancomycin Trough 6.6 07/03/21 22:58: POC Glucose 222 H 07/04/21 05:00: WBC 9.5, RBC 3.24 L, Hgb 10.2 L, Hct 29.6 L, MCV 91.4, MCH 31.5, MCHC 34.5, RDW Std Deviation 51.7 H, RDW Coeff of Samreen 15.5 H, Plt Count 134 L, MPV 9.2, Immature Gran % (Auto) 4.600 H, Neut % (Auto) 78.5 H, Lymph % (Auto) 10.1 L, Benzie % (Auto) 4.8, Eos % (Auto) 1.7, Baso % (Auto) 0.3, Absolute Neuts (auto) 7.4, Absolute Lymphs (auto) 0.96, Nucleated RBC % 0 07/04/21 05:01: Sodium 133 L, Potassium 3.9, Chloride 101, Carbon Dioxide 25.0, Anion Gap 7, BUN 11, Creatinine 0.74, Estim Creat Clear Calc 51.41, Est GFR (MDRD) Af Amer 129, Est GFR (MDRD) Non-Af 106, BUN/Creatinine Ratio 14.8, Gluco se 79, Calcium 8.1 L 07/04/21 06:28: POC Glucose 76 Microbiology: Microbiology 06/28/21 19:47 Blood Culture (Wb) - Left Wrist Blood Culture - Final No growth in 5 days. 06/28/21 20:00 Blood Culture (Wb) - Right Hand Blood Culture - Final No growth in 5 days. 06/30/21 16:25 Mucosa - Nasopharyngeal Influenza Types A,B Direct FA (CATHY) - Final 06/28/21 19:45 Urine, Clean Catch Urine Culture - Final Mixed Gram Positive Organisms 06/29/21 14:20 Urine, Clean Catch Legionella Antigen - Final 06/29/21 14:20 Urine, Clean Catch Streptococcus pneumoniae Antigen (M - Final Meaningful Use Info Meaningful Use Diagnoses (Choose all that apply): None applicable Discharge Plan Admission Admit Date/Time: 06/28/21 23:00 Primary Reason for Your Visit: /Shortness of breath/cough Attending Provider: Gloria Anthony Primary Care Provider: Daniel Camejo Consulting Providers: Kevin Karimi Discharge Orders/Prescriptions Prescriptions: New ipratropium-albuterol 0.5 mg-3 mg(2.5 mg base)/3 mL Solution For Nebulization 3 ml inhalation Q6HWA.RT Qty: 0 RF: 0 sodium chloride 1 gram Tablet 2 g PO DAILY Qty: 0 RF: 0 Mucus DM 30-600 mg Tablet Extended Release 12 Hr 1 tab PO BID Qty: 0 RF: 0 enoxaparin 40 mg/0.4 mL Syringe 40 mg subcut DAILY Qty: 0 RF: 0 insulin lispro [Humalog KwikPen Insulin] 100 unit/mL Insulin Pen See Protocol unit subcut ACHS Qty: 0 RF: 0 Lantus Solostar U-100 Insulin 100 unit/mL (3 mL) Insulin Pen 10 units subcut QHS Qty: 0 RF: 0 Glucerna 1.2 Gaudencio 0.06-1.2 gram-kcal/mL Liquid 120 ml PO TIDCM Qty: 0 RF: 0 Continued allopurinol 100 MG tablet 100 mg PO DAILY RF: 0 cyanocobalamin (vitamin B-12) 1,000 MCG/ML solution 1,000 mcg IM Q30D RF: 0 gabapentin 300 MG capsule 300 mg PO TID RF: 0 omeprazole 20 MG capsule 20 mg PO DAILY RF: 0 cholecalciferol (vitamin D3) 5,000 UNIT capsule 5,000 unit PO DAILY RF: 0 ibrutinib 140 MG capsule 420 mg PO LUNCH RF: 0 montelukast 10 MG tablet 10 mg PO QHS RF: 0 albuterol sulfate [Ventolin HFA] 1 INHALER inhaler 2 puff inhalation Q4H PRN PRN (Reason: Wheezing) Qty: 1 RF: 0 multivitamin Tablet 1 tab PO DAILY RF: 0 oxycodone-acetaminophen 5-325 mg Tablet 1 tab PO BID PRN (Reason: Pain) RF: 0 hydroxyzine HCl 25 mg Tablet 25 mg PO TID PRN (Reason: Anxiety) RF: 0 Renal Caps 1 mg Capsule 1 cap PO DAILY RF: 0 Restasis 0.05 % [place] 1 drp EACH EYE Q12H RF: 0 duloxetine 60 mg Capsule,Delayed Release(Dr/Ec) 60 mg PO DAILY RF: 0 alogliptin [Nesina] 12.5 mg Tablet 12.5 mg PO DAILY RF: 0 aspirin [Aspirin Childrens] 81 mg tablet,chewable 81 mg PO DAILY 30 Days Qty: 30 RF: 0 terazosin 1 mg Tablet 1 mg PO QHS RF: 0 Discontinued metformin 500 MG tablet 1,000 mg PO BID RF: 0 glimepiride [Amaryl] 4 mg tablet 4 mg PO DAILY 30 Days Qty: 60 RF: 0 dexamethasone 6 mg tablet 6 mg PO DAILY RF: 0 Referrals / Follow Up: Daniel Camejo DO [Primary Care Provider] - Within 1 Month Disposition Disposition (needs filled in before D/C Order can be placed): [facility] Charges/Coding Visit Charges Inpatient E&M: 02192 SNF Disch >30 Min
[2021-07-04 12:31] LABS: Bedside Glucose 246 mg/dL (70-110)
[2021-07-04 13:02] VITALS: O2SAT 96
[2021-07-04 13:18] LABS: Pathologist Review Reviewed
--- NOTE | 2021-07-04 13:38 | CASEMGMT ---
Patient's son delivered his glasses. SHARDA arranged for patient to get picked up at 1430 via cot. SHARDA faxed orders and seed cone picker time to [facility]. SHARDA completed 7000 on HENS. SHARDA notified RN, secretary specialist, and Kathy at [facility]. SHARDA also called patient's and let her know. SHARDA also let her know that their son delivered patient's glasses. Plan: d/c to [facility] under skilled level of care on a convalescent stay. [facility] transported via cot. Anna Marie FALCON
--- NOTE | 2021-07-04 13:38 | PCM.PN.REN ---
Subjective Subjective Following for hyponatremia. The patient denies headache, nausea, or diarrhea. He is going home today. Objective Data Objective Data Vital Signs: Vital Signs Temp Pulse Resp BP Pulse Ox 97.6 F L 76 20 H 124/56 H 97 07/04/21 10:13 07/04/21 10:13 07/04/21 10:13 07/04/21 10:13 07/04/21 10:13 Oxygen Flow Rate (L/min) 2 Oxygen Delivery Method Nasal Cannula Weight: 77.2 kg Body Mass Index (BMI) 26.1 Intake & Output: Intake and Output for Last 24 Hours 07/02/21 07/03/21 07/04/21 23:59 23:59 23:59 Intake Total 710 / 710 240 / 240 Output Total 125 / 125 600 / 750 150 / 150 Balance 585 / 585 -360 / -510 -150 / -150 Medical Nutrition Assessment Dietitian: Malnutrition Criteria Met Start: 06/29/21 11:32 Freq: Status: Active Protocol: Document 06/29/21 11:32 AG (Rec: 06/29/21 11:32 [id number]) Nutrition Malnutrition Evidence of Malnutrition Exists Yes Malnutrition (severe): Acute Illness/Injury Evidenced By Suboptimal Energy Intake ( Severe),Weight Loss (Severe) Clinical Problem Acute Disease or Injury Related Malnutrition Etiology severe, acute malnutrition r/t inadequate energy intake w/ acute illness Signs/Symptoms as evidenced by unintentional wt loss of 11.5#/6.5% < 2 weeks; estimated PO intake meeting <75% of estimated energy needs >1 week Status Active Problem Recommendation Dietitian Recommendations/Changes continue regular diet d/t malnutrition; will fortify foods when possible and provide fortified pudding or magic cup w/ meals for additional calories/protein if consumed. Continue fluid restriction per hospitalist until etiology of hyponatremia is determined. Lab / Micro Data Result Diagrams: 07/04/21 05:00 07/04/21 05:01 Labs: Laboratory Results - last 24 hr 07/03/21 07:21: Diff Path Review Reviewed 07/03/21 15:59: POC Glucose 204 H 07/03/21 21:30: Vancomycin Trough 6.6 07/03/21 22:58: POC Glucose 222 H 07/04/21 05:00: WBC 9.5, RBC 3.24 L, Hgb 10.2 L, Hct 29.6 L, MCV 91.4, MCH 31.5, MCHC 34.5, RDW Std Deviation 51.7 H, RDW Coeff of Samreen 15.5 H, Plt Count 134 L, MPV 9.2, Immature Gran % (Auto) 4.600 H, Neut % (Auto) 78.5 H, Lymph % (Auto) 10.1 L, [place] % (Auto) 4.8, Eos % (Auto) 1.7, Baso % (Auto) 0.3, Absolute Neuts (auto) 7.4, Absolute Lymphs (auto) 0.96, Nucleated RBC % 0 07/04/21 05:01: Sodium 133 L, Potassium 3.9, Chloride 101, Carbon Dioxide 25.0, Anion Gap 7, BUN 11, Creatinine 0.74, Estim Creat Clear Calc 51.41, Est GFR (MDRD) Af Amer 129, Est GFR (MDRD) Non-Af 106, BUN/Creatinine Ratio 14.8, Glucose 79, Calcium 8.1 L 07/04/21 06:28: POC Glucose 76 07/04/21 10:39: POC Glucose 246 H Micro: Microbiology 06/28/21 19:47 Blood Culture (Wb) - Left Wrist Blood Culture - Final No growth in 5 days. 06/28/21 20:00 Blood Culture (Wb) - Right Hand Blood Culture - Final No growth in 5 days. 06/30/21 16:25 Mucosa - Nasopharyngeal Influenza Types A,B Direct FA (CATHY) - Final 06/28/21 19:45 Urine, Clean Catch Urine Culture - Final Mixed Gram Positive Organisms 06/29/21 14:20 Urine, Clean Catch Legionella Antigen - Final 06/29/21 14:20 Urine, Clean Catch Streptococcus pneumoniae Antigen (M - Final Physical Exam Narrative General: No apparent distress HEENT: Normocephalic, atraumatic. Mucous membrane moist. Heart: Normal S1, S2. There is a 2/6 systolic murmur. Lungs: Clear to auscultation anteriorly. Abdomen: Normal bowel sound, soft, nontender, no guarding or rebound. Extremities: No clubbing, cyanosis, or edema. Assessment & Plan Assessment/Plan (1) Hyponatremia: PLAN: The patient is a 85-year-old man who was recently admitted to the hospital for COVID-19 pneumonia. The patient returns to the hospital on 06/28/2021 with confusion, anorexia, and failure to thrive at home. During work-up in the emergency department, the patient was found to have a serum sodium of 118 mmol/L. The patient has hypotonic hyponatremia. Serum sodium has improved to 134 mmol/L yesterday. Serum sodium is 133 mmol/L today. Therefore, he is back to baseline serum sodium. During the last admission, serum sodium was between 130 to 132 mmol/L. The patient has hypoosmolar hypotonic hyponatremia due to decreased solute intake. TSH and cortisol level were normal. Okay to continue duloxetine for now since serum sodium is stable. Continue to encourage patient to increase solute, particularly protein, intake. This will help attenuate recurrence of hyponatremia. Limit free water intake to less than 1.5 L/day. Okay for discharge. Would recommend checking BMP again next week.
--- NOTE | 2021-07-04 14:02 | PHA.DC.MR ---
Pharmacy Service has performed discharge medication reconciliation for this patient. The patient's discharge medication list was reviewed for discrepancies and discrepancies were resolved. Home Medications allopurinol 100 mg PO DAILY 04/29/17 cholecalciferol (vitamin D3) 5,000 unit PO DAILY 04/29/17 cyanocobalamin (vitamin B-12) 1,000 mcg IM Q30D 04/29/17 gabapentin 300 mg PO TID 04/29/17 omeprazole 20 mg PO DAILY 04/29/17 ibrutinib 420 mg PO LUNCH 02/18/19 montelukast 10 mg PO QHS 04/14/20 albuterol sulfate [Ventolin HFA] 2 puff INHALATION Q4H PRN PRN #1 inhaler 12/11/20 Renal Caps 1 cap PO DAILY 06/17/21 Restasis 1 drp EACH EYE Q12H 06/17/21 alogliptin [Nesina] 12.5 mg PO DAILY 06/17/21 duloxetine 60 mg PO DAILY 06/17/21 hydroxyzine HCl 25 mg PO TID PRN 06/17/21 multivitamin 1 tab PO DAILY 06/17/21 oxycodone-acetaminophen 1 tab PO BID PRN 06/17/21 aspirin [Aspirin Childrens] 81 mg PO DAILY 30 Days #30 tab 06/19/21 terazosin 1 mg PO QHS 06/21/21 dextromethorphan-guaifenesin [Mucus DM] 1 tab PO BID #0 tab 07/04/21 enoxaparin 40 mg SUBCUT DAILY #0 ml 07/04/21 insulin glargine [Lantus Solostar U-100 Insulin] 10 units SUBCUT QHS #0 ml 07/04/21 insulin lispro [Humalog KwikPen Insulin] See Protocol SUBCUT ACHS #0 ml 07/04/21 ipratropium-albuterol 3 ml INHALATION Q6HWA.RT #0 ml 07/04/21 nut.tx.gluc intol,lf,soy-fiber [Glucerna 1.2 Gaudencio] 120 ml PO TIDCM #0 ml 07/04/21 sodium chloride 2 g PO DAILY #0 tab 07/04/21
[2021-07-04 14:11] VITALS: PULSE 75; RESP 16
--- NOTE | 2021-07-04 14:24 | NURSING ---
report called to the [facility]
== END 2021-07-04 14:22 | disposition skilled nursing facility (03) | DRG 640 ==
LOC: ED 19:52 → PCU 21:29
PROVIDERS: Internal Medicine; Internal Medicine Nephrology; Admitting Provider Hospitalist; Emergency Provider Student in an Organized Health Care Education/Training Program; PCP Student in an Organized Health Care Education/Training Program; Visit Provider Internal Medicine
DX: E87.1 Hypo-osmolality and hyponatremia (principal); U07.1 COVID-19; J96.01 Acute respiratory failure with hypoxia; J12.82 Pneumonia due to coronavirus disease 2019; E43 Unspecified severe protein-calorie malnutrition; G93.41 Metabolic encephalopathy; C91.10 Chronic lymphocytic leukemia of B-cell type not having achieved remission; K21.9 Gastro-esophageal reflux disease without esophagitis; E78.5 Hyperlipidemia, unspecified; M10.9 Gout, unspecified; G89.4 Chronic pain syndrome; N40.0 Benign prostatic hyperplasia without lower urinary tract symptoms; R62.7 Adult failure to thrive; I10 Essential (primary) hypertension; R63.0 Anorexia; E11.9 Type 2 diabetes mellitus without complications; Z68.26 Body mass index [BMI] 26.0-26.9, adult; Z66 Do not resuscitate; Z79.4 Long term (current) use of insulin; Z79.84 Long term (current) use of oral hypoglycemic drugs; Z82.49 Family history of ischemic heart disease and other diseases of the circulatory system; Z80.0 Family history of malignant neoplasm of digestive organs
CPT/HCPCS: 36415; 36600; 71045; 80048; 80053; 80076; 80202; 81001; 82533; 82570; 82803; 82962; 83605; 83880; 83930; 83935; 84145; 84300; 84443; 84484; 85025; 85610; 86140; 87040; 87086; 87088; 87449; 87804; 93005; 94640; 97110; 97163; 97166; 97530; 97535; 99251; 99285; J7050; A4216; G0463

== ENCOUNTER 2021-08-19 14:52 | Emergency (ER) | payer OTHER, SELFPAY ==
[2021-08-19 14:54] VITALS: BP 117/68; PULSE 82; RESP 16; TEMP 36.1; O2SAT 97; BMI 24.6
--- NOTE | 2021-08-19 15:07 | RAD_ITS ---
STUDY: X-RAY - UNILATERAL RIBS ( RIGHT ) WITH CHEST REASON FOR EXAM: Male, 85 years old. right rib pain TECHNIQUE - RIBS: 4 view(s) of the ribs. TECHNIQUE - CHEST: Single PA view of the chest. COMPARISON: 06/28/2021 FINDINGS - RIBS: Acute displaced fractures of the lateral right seventh eighth ninth and 10th ribs. FINDINGS - CHEST: Poor inspiration with some bibasilar atelectasis. There is no demonstrated pleural abnormality. Normal size heart. Normal mediastinum and dianelys. Normal visualized pulmonary arteries. Normal visualized aortic arch and descending thoracic aorta. Normal visualized thoracic spine. Normal visualized ribs, clavicles, and shoulders. There is no demonstrated abnormality of the visualized soft tissue structures of the upper abdomen. RAD/Ribs Uni Min 3V w/PA Chest IMPRESSION: RIBS: Acute displaced fractures the lateral right seventh, eighth, ninth, and 10th ribs. CHEST: No pneumothorax or hemothorax. Electronically Signed: Miguel Alvarado MD at 16:12 EST ,
--- NOTE | 2021-08-19 15:41 | CT_ITS ---
STUDY: CT BRAIN WITHOUT CONTRAST REASON FOR EXAM: Male, 85 years old. fall RADIATION DOSAGE (If Supplied By Facility): CTDIvol = ( 47.06 ) mGy, DLP = ( 872.68 ) mGycm TECHNIQUE: Transaxial CT imaging of the brain was performed without administration of intravenous contrast material. Individualized dose optimization techniques were used for this CT. COMPARISON: No relevant priors. FINDINGS: Normal soft tissue structures. Normal calvarium. There is moderate cerebral atrophy with widening of the extra-axial spaces and ventricular dilatation. There are areas of decreased attenuation within the white matter tracts of the supratentorial brain, consistent with microvascular disease changes. Normal basal ganglia and thalami. Normal brainstem. Normal cerebellum. There is no intracranial hemorrhage. There are no findings of an acute ischemic infarction. There is mucoperiosteal inflammatory disease of the paranasal sinuses consistent with moderate chronic sinusitis. CT/Brain/Head without Contrast IMPRESSION: Chronic involutional changes of the brain. Electronically Signed: Miguel Alvarado MD at 16:24 EST ,
--- NOTE | 2021-08-19 15:55 | EX.ED.DYSGE1 ---
HPI History of Present Illness Chief Complaint: Fall Informant: patient and family Onset/Context/Timing Onset: Today Current Severity: Moderate Maximum Severity: Moderate Narrative Narrative: Patient reportedly fell from the couch landing on his right side this morning around 6 AM. Family member says they heard him fall and found him curled up lying on his right side. Has been complaining of right rib pain. Family did give him ibuprofen around 1 PM. He does report increased pain with deep breath. He denies striking his head. He reportedly is currently on an antibiotic that his PCP gave him on . Family member states this is because of some congestion he had as well as diarrhea. She states his symptoms seem to be improving at this time. Family member does report some memory problems recently. Dr. Camejo is hoping to address possible dementia once his current illnesses are improved. [facility] Medical History Ankle fracture, left BPH (benign prostatic hyperplasia) Bronchitis Chronic leukemia Diabetes GERD (gastroesophageal reflux disease) History of gout History of hyperlipidemia History of non anemic vitamin B12 deficiency History of shingles Hyponatremia Radiculopathy of leg Spinal stenosis Home Medications allopurinol 100 mg PO DAILY 04/29/17 [History Last Taken 06/21/21] cholecalciferol (vitamin D3) 5,000 unit PO DAILY 04/29/17 [History Last Taken 06/20/21] cyanocobalamin (vitamin B-12) 1,000 mcg IM Q30D 04/29/17 [History Last Taken Unknown] gabapentin 300 mg PO TID 04/29/17 [History Last Taken 06/21/21] omeprazole 20 mg PO DAILY 04/29/17 [History Last Taken 06/21/21] ibrutinib 420 mg PO LUNCH 02/18/19 [History Last Taken 06/20/21] montelukast 10 mg PO QHS 04/14/20 [History Last Taken 06/20/21] albuterol sulfate [Ventolin HFA] 2 puff INHALATION Q4H PRN PRN #1 inhaler 12/11/20 [Rx Last Taken Unknown] Renal Caps 1 cap PO DAILY 06/17/21 [History Last Taken 06/20/21] Restasis 1 drp EACH EYE Q12H 06/17/21 [History Last Taken Unknown] alogliptin [Nesina] 12.5 mg PO DAILY 06/17/21 [History Last Taken 06/21/21] duloxetine 60 mg PO DAILY 06/17/21 [History Last Taken 06/21/21] hydroxyzine HCl 25 mg PO TID PRN 06/17/21 [History Last Taken Unknown] multivitamin 1 tab PO DAILY 06/17/21 [History Last Taken 06/20/21] oxycodone-acetaminophen 1 tab PO BID PRN 06/17/21 [History Last Taken Unknown] aspirin [Aspirin Childrens] 81 mg PO DAILY 30 Days #30 tab 06/19/21 [Rx Last Taken Unknown] terazosin 1 mg PO QHS 06/21/21 [History Last Taken 06/20/21] dextromethorphan-guaifenesin [Mucus DM] 1 tab PO BID #0 tab 07/04/21 [Rx Last Taken Unknown] enoxaparin 40 mg SUBCUT DAILY #0 ml 07/04/21 [Rx Last Taken Unknown] insulin glargine [Lantus Solostar U-100 Insulin] 10 units SUBCUT QHS #0 ml 07/04/21 [Rx Last Taken Unknown] insulin lispro [Humalog KwikPen Insulin] See Protocol SUBCUT ACHS #0 ml 07/04/21 [Rx Last Taken Unknown] ipratropium-albuterol 3 ml INHALATION Q6HWA.RT #0 ml 07/04/21 [Rx Last Taken Unknown] nut.tx.gluc intol,lf,soy-fiber [Glucerna 1.2 Gaudencio] 120 ml PO TIDCM #0 ml 07/04/21 [Rx Last Taken Unknown] sodium chloride 2 g PO DAILY #0 tab 07/04/21 [Rx Last Taken Unknown] Allergy/AdvReac Type Severity Reaction Status Date / Time Ogiezmh-Aqb-Sfq Reductase Allergy Pain in Verified 06/21/21 12:09 Inhibitor joints prednisone AdvReac Nausea/Vom/ Verified 06/21/21 12:09 Diarrhea Family History Mother Cancer skin Father Colon cancer Sister Cancer Brother Heart disease Social History Smoking Status: Never smoker ROS ROS ED Constitutional Constitutional ED: Denies chills or fever(s) Eyes Eyes: Denies blurry vision or change in vision ENT ENT ED: Reports other Details: Scabbed wound to right ear being evaluated by dermatology tomorrow Cardiovascular Cardiovascular: Denies chest pain or palpitations Respiratory/Chest Respiratory/Chest: Reports other Details: Mild congestion ; Denies cough or dyspnea Gastrointestinal Gastrointestinal: Reports diarrhea; Denies nausea or vomiting Genitourinary Genitourinary ED: Denies dysuria Musculoskeletal Musculoskeletal: Denies neck pain Integumentary Denies rash Allergic/Immunologic Allergic/Immunologic ED: Denies urticaria EXAM Physical Exam Const Vital Signs: 08/19/21 14:54 Temperature 96.9 F L Temperature Source Temporal Pulse Rate 82 Respiratory Rate 16 Blood Pressure 117/68 Blood Pressure Mean 84 Pulse Ox 97 Oxygen Delivery Method Room Air Positive well nourished and well developed General Appearance ED: well developed HEENT HEENT Narrative: Scabbed lesion to the right ear. Family reports this is not from his fall today but was there previously. No active bleeding. Eyes PERRL and EOMs intact bilaterally Neck supple Neck Narrative: No C-spine tenderness. Chest Wall inspection of chest normal Chest Narrative: Right lower rib tenderness to palpation. No crepitus. Resp normal respiratory effort and clear to auscultation bilaterally Cardio regular rate and regular rhythm GI non-tender Palpation: soft Extremity normal to inspection Neuro Neuro Narrative: No focal neuro deficits. Sensorium / Orientation: alert Skin Skin Narrative: Right ear lesion as noted above. Patient has old healing ecchymotic lesions noted over his abdomen from prior subcutaneous injections. MDM MDM MDM Narrative Medical decision making narrative: Chest x-ray with rib series obtained per nursing protocol. Lab work and head CT ordered due to patient's confusion although it sounds from family that this may be an ongoing issue. Although Lovenox is listed in his medication list here at the hospital, it does not appear that he is still on this. Lab Data Attestation: I reviewed the patient's lab results. Labs: Laboratory Results - last 24 hr 08/19/21 08/19/21 15:50 15:50 WBC 10.1 RBC 3.10 L Hgb 9.7 L Hct 28.9 L MCV 93.2 MCH 31.3 MCHC 33.6 RDW Std Deviation 60.5 H RDW Coeff of Samreen 18.2 H Plt Count 111 L MPV 9.4 Neut % (Auto) Not Reportable Absolute Neuts (auto) 8.2 H Absolute Lymphs (auto) 0.91 Total Counted 100 Neutrophils % (Manual) 78 H Band Neutrophils % 3 Lymphocytes % (Manual) 9 L Monocytes % (Manual) 4 Eosinophils % (Manual) 1 Metamyelocytes % 1 Myelocytes % 4 H Diff Path Review May foll Platelet Estimate ADEQUATE RBC Morphology NORM C+C Sodium 135 L Potassium 4.1 Chloride 99 Carbon Dioxide 30.0 Anion Gap 6 BUN 18 Creatinine 1.10 Estim Creat Clear Calc 48.36 Est GFR (MDRD) Af Amer 82 Est GFR (MDRD) Non-Af 68 BUN/Creatinine Ratio 16.4 Glucose 132 H Calcium 8.6 Total Bilirubin 0.70 Direct Bilirubin 0.26 AST 20 ALT 18 Alkaline Phosphatase 99 Total Protein 5.9 L Albumin 2.4 L Globulin 3.5 Radiography Diagnostic Testing: Clinical Impression(s) from Imaging Studies Ribs w/Chest X-Ray 08/19/21 15:07 IMPRESSION: RIBS: Acute displaced fractures the lateral right seventh, eighth, ninth, and 10th ribs. CHEST: No pneumothorax or hemothorax. Electronically Signed: Miguel Alvarado MD at 16:12 EST Reading Location ID and State: [id number] / [employer] Tel , Service support , Brain CT 08/19/21 15:41 IMPRESSION: Chronic involutional changes of the brain. Electronically Signed: Miguel Alvarado MD at 16:24 EST Reading Location ID and State: [id number] / [employer] Tel , Service support , Treatment and Re-Evaluation Comments:: Lab work is unremarkable. CT head normal. Rib series with chest x-ray per my interpretation reveals at least 4 right-sided rib fractures. No evidence of pneumothorax. Radiologist interpretation reviewed and agrees. Patient given a tab of Pilot here. He has a prescription for this at home. Test results discussed with patient and family at bedside. Return instructions provided. Discharge Plan Triage Chief Complaint: Fall ED Provider: Phoebe Olson Dx/Rx/DC Orders Clinical Impression: Fall, Fracture, ribs Instructions: ED Rib Fracture Prescriptions: No Action allopurinol 100 MG tablet 100 mg PO DAILY RF: 0 cyanocobalamin (vitamin B-12) 1,000 MCG/ML solution 1,000 mcg IM Q30D RF: 0 gabapentin 300 MG capsule 300 mg PO TID RF: 0 omeprazole 20 MG capsule 20 mg PO DAILY RF: 0 cholecalciferol (vitamin D3) 5,000 UNIT capsule 5,000 unit PO DAILY RF: 0 ibrutinib 140 MG capsule 420 mg PO LUNCH RF: 0 montelukast 10 MG tablet 10 mg PO QHS RF: 0 albuterol sulfate [Ventolin HFA] 1 INHALER inhaler 2 puff inhalation Q4H PRN PRN (Reason: Wheezing) Qty: 1 RF: 0 multivitamin Tablet 1 tab PO DAILY RF: 0 oxycodone-acetaminophen 5-325 mg Tablet 1 tab PO BID PRN (Reason: Pain) RF: 0 hydroxyzine HCl 25 mg Tablet 25 mg PO TID PRN (Reason: Anxiety) RF: 0 Renal Caps 1 mg Capsule 1 cap PO DAILY RF: 0 Restasis 0.05 % Dropperette 1 drp EACH EYE Q12H RF: 0 duloxetine 60 mg Capsule,Delayed Release(Dr/Ec) 60 mg PO DAILY RF: 0 alogliptin [Nesina] 12.5 mg Tablet 12.5 mg PO DAILY RF: 0 aspirin [Aspirin Childrens] 81 mg tablet,chewable 81 mg PO DAILY 30 Days Qty: 30 RF: 0 terazosin 1 mg Tablet 1 mg PO QHS RF: 0 ipratropium-albuterol 0.5 mg-3 mg(2.5 mg base)/3 mL Solution For Nebulization 3 ml inhalation Q6HWA.RT Qty: 0 RF: 0 sodium chloride 1 gram Tablet 2 g PO DAILY Qty: 0 RF: 0 Mucus DM 30-600 mg Tablet Extended Release 12 Hr 1 tab PO BID Qty: 0 RF: 0 enoxaparin 40 mg/0.4 mL Syringe 40 mg subcut DAILY Qty: 0 RF: 0 insulin lispro [Humalog KwikPen Insulin] 100 unit/mL Insulin Pen See Protocol unit subcut ACHS Qty: 0 RF: 0 Lantus Solostar U-100 Insulin 100 unit/mL (3 mL) Insulin Pen 10 units subcut QHS Qty: 0 RF: 0 Glucerna 1.2 Gaudencio 0.06-1.2 gram-kcal/mL Liquid 120 ml PO TIDCM Qty: 0 RF: 0 Primary Care Provider: Daniel Camejo Referrals: Daniel Camejo DO [Primary Care Provider] - 1 Week Disposition Disposition: Home, Self Care
[2021-08-19 15:58] LABS: Hematocrit 28.9 % (40-54); Hemoglobin 9.7 g/dL (13.0-16.5); Mean Corp Hgb Conc 33.6 g/dL (32-36); Mean Corpuscular Hgb 31.3 pg (27.0-32.0); Mean Corpuscular Volume 93.2 fL (80-94); Mean Platelet Vol. 9.4 fl (6.2-12.0); POSITIVE COUNT YES; POSITIVE MORPHOLOGY YES; Platelet Count 111 K/mm3 (150-450); RBC Distribution Width CV 18.2 % (11.6-14.6); RBC Distribution Width SD 60.5 fl (35.1-43.9); White Blood Count 10.1 K/mm3 (4.4-11.0)
[2021-08-19 16:06] LABS: Differential Indicated MANUAL DIFF
[2021-08-19 16:18] LABS: Eosinophil 1 % (0-5); Lymphocyte 9 % (19-41); Metamyelocyte 1 % (0-1); Monocyte 4 % (0-10); Myelocyte 4 % (0-0); Neutrophil-Band 3 % (0-5); Neutrophil-Segmented 78 % (47-70); Platelet Estimate ADEQUATE (ADEQ); Red Cell Morphology NORM C+C NORMAL (NORM C&C); Total Cells Counted 100 (MANUAL DIFF)
[2021-08-19 16:19] LABS: Absolute Neutrophil Count 8.2 X10^3/uL (2.0-7.7)
[2021-08-19 16:20] LABS: Absolute Lymphocyte Count 0.91 X10^3/uL (0.83-4.51)
[2021-08-19 16:21] LABS: AST(SGOT) 20 U/L (15-37); Alanine Aminotransfer ALT/SGPT 18 U/L (16-61); Albumin, Serum 2.4 g/dL (3.2-5.0); Alkaline Phosphatase 99 U/L (45-117); Anion Gap 6 (5-15); BUN 18 mg/dL (7-18); BUN/Creat Ratio 16.4 RATIO (10-20); Bilirubin, Direct 0.26 mg/dL (0.00-0.30); Calcium,Total 8.6 mg/dL (8.5-10.1); Chloride 99 mmol/L (98-107); EST Glomerular Filtration Rate 68 mL/min (>60); Est Glom Filt Rate - Afr Amer 82 mL/min (>60); Estimated Creatinine Clearance 48.36 ml/min; Globulin 3.5 g/dL (2.2-4.2); Glucose 132 mg/dL (74-106); Potassium 4.1 mmol/L (3.5-5.1); Protein, Total 5.9 g/dL (6.4-8.2); Sodium Level 135 mmol/L (136-145)
[2021-08-19] MEDS: HYDROcodone Bitartrate/Apap 5/325 Tablet PO (16:33)
[2021-08-20 14:17] LABS: Pathologist Review Reviewed
--- NOTE | 2021-08-21 16:15 | CASEMGMT ---
Addendum entered by Delia Corbin 08/22/21 11:29: Call placed to Dr. Daniel Camejo's office to inform of patient's 's interest in HHC. Office nurse also made aware of patient's complaint of pain yesterday with family resistance to allowing patient to take prescribed pain medication. Per nurse, message will be forwarded to Dr. Camejo so that topics may be addressed during tomorrow's scheduled follow-up appointment. RAH Espinosa CM Original Note: RAH MARTINEZ ED follow-up: Date of ER visit: 08/19/21 Presenting ER complaint: fall Dx with multiple rib fractures RAH MARTINEZ placed call to patient's telephone number listed on demographics and patient's Ebony answered. RAH MARTINEZ introduced self and role at [facility]. Ebony states patient is in too much pain to speak. Ebony agreeable to speak with RAH MARTINEZ. When questioned if patient is taking pain medication, reports he was instructed by ER provider to take the prescription pain medication that he has at home (hydrocodone/acetaminophen 5/325mg) but patient's daughter and granddaughter do not want patient taking this medication out of fear that he may become addicted. RAH MARTINEZ informed that this medication is indicated for multiple rib fractures, as instructed by ER provider. Instructed pain medication appropriate for short duration and at prescribed dosing. denies history of prescription drug abuse. reports she did give patient one tablet of prescription medication last evening before bed and he slept well during the night. Today, has given patient Tylenol 1 gm at 3:00 p.m. without pain relief. instructed to avoid giving Tylenol with Rx [place] as [place] contains acetaminophen. Voiced understanding. instructed on possible medication side effects. Patient has follow-up appointment with PCP on 08/23 at 2:00 p.m. and plans to discuss need for HHC. Patient has pulse oximeter at home and SpO2 92% on room air today, reports normal for patient. instructed on deep breathing exercises that patient may perform, as well as splinting when coughing. Patient's denies further questions or concerns and states she will give patient medication as prescribed. RAH Espinosa CM
== END 2021-08-19 23:59 | disposition home or self-care (01) ==
PROVIDERS: Emergency Provider Emergency Medicine; PCP Student in an Organized Health Care Education/Training Program; Visit Provider Emergency Medicine
DX: S22.41XA Multiple fractures of ribs, right side, initial encounter for closed fracture (principal); E11.9 Type 2 diabetes mellitus without complications; W08.XXXA Fall from other furniture, initial encounter; R19.7 Diarrhea, unspecified; R41.0 Disorientation, unspecified; E78.5 Hyperlipidemia, unspecified; N40.0 Benign prostatic hyperplasia without lower urinary tract symptoms; M10.9 Gout, unspecified; K21.9 Gastro-esophageal reflux disease without esophagitis; Z79.82 Long term (current) use of aspirin; Z79.84 Long term (current) use of oral hypoglycemic drugs
CPT/HCPCS: 70450; 71101; 80048; 80076; 85025; 99282; A4216

== ENCOUNTER 2021-08-22 16:50 | Emergency (ER) | payer OTHER, SELFPAY ==
[2021-08-22] VITALS (10 sets, daily range): BP systolic 102–157; BP diastolic 50–78; PULSE 89–94; RESP 15–22; TEMP 36.7–37.1; O2SAT 85–95; BMI 24.3
--- NOTE | 2021-08-22 17:08 | CT_ITS ---
STUDY: CT BRAIN WITHOUT CONTRAST REASON FOR EXAM: Male, 85 years old. Confusion. History of fall 3 days ago with multiple broken ribs. History of hypertension and diabetes. RADIATION DOSAGE (If Supplied By Facility): CTDIvol = ( 44.99 ) mGy, DLP = ( 1659.71 ) mGycm TECHNIQUE: Transaxial CT imaging of the brain was performed without administration of intravenous contrast material. Individualized dose optimization techniques were used for this CT. COMPARISON: 08/19/2021. FINDINGS: Normal soft tissue structures. Normal calvarium. Normal size ventricles and extra-axial spaces for the patient''s age. Normal white matter tracts of the cerebral hemispheres. Normal basal ganglia and thalami. Normal brainstem. Normal cerebellum. There is no intracranial hemorrhage. There are no findings of an acute ischemic infarction. There is mucoperiosteal reaction within the bilateral maxillary and ethmoid air cells. This appears unchanged. CT/Brain/Head without Contrast IMPRESSION: 1. No acute intracranial or calvarial abnormality. There is no interval change. 2. Stable sinusitis. Electronically Signed: Julio Rivera DO at 18:47 EST Reading Location ID and State: [address] [place] [address] Tel [phone], Service support ,
--- NOTE | 2021-08-22 17:08 | RAD_ITS ---
STUDY: X-RAY CHEST REASON FOR EXAM: Male, 85 years old. Chest pain. TECHNIQUE: Single AP portable view of the chest. COMPARISON: 06/28/2021. PA chest with RIBS, 08/19/2021 FINDINGS: There is a small right pleural effusion with questionable atelectasis versus infiltrate. The lungs are otherwise clear. Normal size heart. Normal mediastinum and dianelys. Normal visualized pulmonary arteries. There is atherosclerotic calcification of the aortic arch with tortuosity. No osseous changes. Again seen are fractures of the right seventh eighth and ninth ribs. Also question fracture of the anterior right sixth rib. There is no demonstrated abnormality of the visualized soft tissue structures of the upper abdomen. RAD/Chest 1 View (Portable) IMPRESSION: 1. Multiple right rib fractures with right pleural effusion and atelectasis. This appears increased from the study of 3 days earlier. Electronically Signed: Julio Rivera DO at 17:47 EST ,
--- NOTE | 2021-08-22 17:09 | EKG12_ITS ---
Test Reason : CONFUSION HYPOXIA Blood Pressure : / mmHG Vent. Rate : 094 BPM Atrial Rate : 094 BPM P-R Int : 170 ms QRS Dur : 102 ms QT Int : 338 ms P-R-T Axes : 022 018 018 degrees QTc Int : 422 ms Sinus rhythm with frequent Premature ventricular complexes Otherwise normal ECG Confirmed by UMESH SIMON, CHRISTOPHER ([id number]), editor trade journal MEGAN ARGUETA ([id number]) on 08/24/2021 9:58:31 AM Referred By: LASHAY Confirmed By:CHRISTOPHER CALVO MD
--- NOTE | 2021-08-22 17:11 | EDS_ITS ---
HPI History of Present Illness Chief Complaint: Confusion Informant: patient and spouse/S.O. Onset/Context/Timing Onset: Today Context: Gradual Onset Timing: Continuous Worsened by: Nothing Relieved by: Nothing Narrative Narrative: Patient presents with low oxygen and increasing confusion that became worse today. Patient fell 4 days ago and had rib fractures. Patient was given a prescription for oxycodone. Patient took a dose of oxycodone yesterday. states patient is more confused today. states that his oxygen saturations have been in the 80s at home all day today. states patient has been having some subjective chills at home. denies any shortness of breath. [facility] Medical History (Updated 08/22/21 @ 20:[address] Romeo Ragsdale, DO) Ankle fracture, left BPH (benign prostatic hyperplasia) Bronchitis Chronic leukemia Diabetes GERD (gastroesophageal reflux disease) History of gout History of hyperlipidemia History of non anemic vitamin B12 deficiency History of shingles Hyponatremia Radiculopathy of leg Spinal stenosis Home Medications allopurinol 400 mg PO DAILY 04/29/17 [History Last Taken 06/21/21] cholecalciferol (vitamin D3) 5,000 unit PO DAILY 04/29/17 [History Last Taken 06/20/21] cyanocobalamin (vitamin B-12) 1,000 mcg IM Q30D 04/29/17 [History Last Taken Unknown] gabapentin 300 mg PO TID 04/29/17 [History Last Taken 06/21/21] omeprazole 20 mg PO DAILY 04/29/17 [History Last Taken 06/21/21] ibrutinib 420 mg PO LUNCH 02/18/19 [History Last Taken 06/20/21] montelukast 10 mg PO QHS 04/14/20 [History Last Taken 06/20/21] albuterol sulfate [Ventolin HFA] 2 puff INHALATION Q4H PRN PRN #1 inhaler 12/11/20 [Rx Last Taken Unknown] Renal Caps 1 cap PO DAILY 06/17/21 [History Last Taken 06/20/21] alogliptin [Nesina] 12.5 mg PO DAILY 06/17/21 [History Last Taken 06/21/21] duloxetine 60 mg PO DAILY 06/17/21 [History Last Taken 06/21/21] hydroxyzine HCl 25 mg PO TID PRN 06/17/21 [History Last Taken Unknown] multivitamin 1 tab PO DAILY 06/17/21 [History Last Taken 06/20/21] aspirin [Aspirin Childrens] 81 mg PO DAILY 30 Days #30 tab 06/19/21 [Rx Last Taken Unknown] terazosin 1 mg PO QHS 06/21/21 [History Last Taken 06/20/21] ipratropium-albuterol 3 ml INHALATION Q6HWA.RT #0 ml 07/04/21 [Rx Last Taken Unknown] nut.tx.gluc intol,lf,soy-fiber [Glucerna 1.2 Gaudencio] 120 ml PO TIDCM #0 ml 07/04/21 [Rx Last Taken Unknown] cefdinir [Omnicef] 300 mg PO BID 08/22/21 [History Last Taken Unknown] furosemide 20 mg PO DAILY 08/22/21 [History Last Taken Unknown] glimepiride 4 mg PO DAILY 08/22/21 [History Last Taken Unknown] hydrocodone-acetaminophen 1 tab PO Q8H PRN 08/22/21 [History Last Taken Unknown] metformin 1,000 mg PO BID 08/22/21 [History Last Taken Unknown] pravastatin 20 mg PO DAILY 08/22/21 [History Last Taken Unknown] Allergy/AdvReac Type Severity Reaction Status Date / Time Wabggfo-RIC-HcE Reductase Allergy Pain in Verified 08/22/21 17:18 Inhibitor joints [Mzxbgob-Cxt-Lgi Reductase Inhibitor] prednisone AdvReac Nausea/Vom/ Verified 08/22/21 17:18 Diarrhea Family History Mother Cancer skin Father Colon cancer Sister Cancer Brother Heart disease Surgical History (Updated 08/22/21 @ 19:[address] Maria De Jesus Pereira MD) History of ankle surgery S/P appendectomy Social History (Updated 08/22/21 @ 19:[address] Maria De Jesus Pereira MD) household members: spouse and family Smoking Status: Never smoker alcohol intake: never substance use type: does not use ROS ROS ED Constitutional Constitutional ED: Reports chills and subjective; Denies fever(s) Eyes Eyes: Denies blurry vision or change in vision ENT ENT ED: Denies rhinorrhea or sore throat Cardiovascular Cardiovascular: Reports chest pain; Denies palpitations Respiratory/Chest Respiratory/Chest: Reports dyspnea; Denies cough Gastrointestinal Gastrointestinal: Denies nausea or vomiting Genitourinary Genitourinary ED: Denies dysuria or hematuria Musculoskeletal Musculoskeletal: Denies back pain or neck pain Integumentary Denies abscess or rash Neurologic Neurologic: Denies headache(s) or weakness Allergic/Immunologic Allergic/Immunologic ED: Denies mouth swelling or urticaria EXAM Physical Exam Const Vital Signs: 08/22/21 16:51 08/22/21 17:17 08/22/21 17:20 Temperature 98.1 F Temperature Source Temporal Pulse Rate 90 Respiratory Rate 20 H Blood Pressure 157/78 H Blood Pressure Mean 104 Pulse Ox 90 85 90 Oxygen Delivery Method Room Air Nasal Cannula Nasal Cannula Oxygen Flow Rate (L/min) 2 4 Fraction of Inspired Oxygen (FIO2) 08/22/21 17:38 08/22/21 17:50 08/22/21 17:52 Temperature 98.1 F Temperature Source Temporal Pulse Rate 91 91 Respiratory Rate 21 H 21 H Blood Pressure 121/50 H 121/50 H Blood Pressure Mean 73 73 Pulse Ox 91 91 92 Oxygen Delivery Method Venturi Mask Venturi Mask Venturi Mask Oxygen Flow Rate (L/min) 12 Fraction of Inspired Oxygen (FIO2) 50 50 08/22/21 19:25 08/22/21 20:13 Temperature 98.4 F 98.4 F Temperature Source Axillary Axillary Pulse Rate 94 90 Respiratory Rate 22 H 21 H Blood Pressure 116/69 112/71 Blood Pressure Mean 84 84 Pulse Ox 94 94 Oxygen Delivery Method Non-Rebreather Non-Rebreather Oxygen Flow Rate (L/min) Fraction of Inspired Oxygen (FIO2) Positive well nourished and well developed General Appearance ED: well developed and NAD HEENT Reports moist mucous membranes Neck supple and no JVD Resp normal respiratory effort Auscultation: diminished lung sounds diffuse Cardio regular rate and regular rhythm GI non-tender Palpation: soft Neuro CN's II-XII intact bilaterally and no sensory deficits noted Sensorium / Orientation: alert Motor Exam: strength 5/5 throughout MDM MDM MDM Narrative Medical decision making narrative: Patient was placed on oxygen. Patient had to be increased to a 50% Ventimask. CBC shows mild leukocytosis of 13.2. Platelets were slightly low at 118. PT was INR PTT were within normal limits. Comprehensive metabolic profile was obtained and was within normal limits. Urinalysis does not show any evidence of hematuria or urinary tract infection. Portable chest x-ray was obtained. There is 1 view. On my interpretation, there are fractures of the seventh eighth and ninth ribs on the right. There is a questionable fracture of the anterior sixth rib on the right. There is an increase in the pleural effusion on the right. There is also some right lower lobe atelectasis versus infiltrate. Radiologist also interpreted the x-ray and agrees. CT scan of the brain was obtained. There is no acute intracranial abnormality. EKG was obtained. On my interpretation, there is normal sinus rhythm with a rate of 94. There are frequent PVCs noted. There are no acute ST or T wave changes. Arterial blood gas showed a pH of 7.48, PCO2 of 34.5, PO2 of 55.8, bicarb of 25.7, and O2 saturation of 98.9% on a 50% Ventimask. Case was discussed with the hospitalist, Dr. Pereira. She was in to evaluate the patient she discussed the case with Dr. Benoit. They recommended obtaining a CTA of the chest for further evaluation of the effusion and rib fractures. As long as the rib fractures appear to be stable, they feel comfortable admitting the patient here. Otherwise, the patient will need to be transferred. CTA of the chest shows consolidation versus atelectasis of the majority of the right lower lobe and a right pleural effusion. There is no evidence of pulmonary embolism. There is no aortic dissection or aneurysm. There are several large lymph nodes compressing the right mainstem bronchus. I discussed the results with Dr. Benoit. She recommended transferring the patient since this could also be pulmonary contusion in the setting of the rib fractures. Case was discussed with the transfer line at [facility]. Patient was accepted to the service of Dr. Yanes. Patient will be transferred to the emergency department there. Patient and family understood and were agreeable with the plan. All questions were answered. Lab Data Attestation: I reviewed the patient's lab results. Labs: Laboratory Results - last 24 hr 08/22/21 08/22/21 08/22/21 17:04 17:04 17:04 WBC 13.2 H RBC 3.41 L Hgb 10.7 L Hct 32.4 L MCV 95.0 H MCH 31.4 MCHC 33.0 RDW Std Deviation 63.2 H RDW Coeff of Samreen 18.8 H Plt Count 118 L MPV 10.8 Neut % (Auto) Not Reportable Absolute Neuts (auto) 11.4 H Absolute Lymphs (auto) 1.45 Total Counted 100 Neutrophils % (Manual) 85 H Band Neutrophils % 1 Lymphocytes % (Manual) 11 L Monocytes % (Manual) 1 Basophils % (Manual) 1 Metamyelocytes % 1 Nucleated RBCs/100 WBC 1 Diff Path Review May foll Platelet Estimate SLT DEC RBC Morphology N CHROM Anisocytosis 1+ PT 13.8 INR 1.1 APTT 31.3 Sodium 132 L Potassium 4.6 Chloride 97 L Carbon Dioxide 28.0 Anion Gap 7 BUN 26 H Creatinine 1.07 Estim Creat Clear Calc 49.72 Est GFR (MDRD) Af Amer 85 Est GFR (MDRD) Non-Af 70 BUN/Creatinine Ratio 24.3 H Glucose 122 H Calcium 9.4 Total Bilirubin 0.80 AST 15 ALT 16 Alkaline Phosphatase 113 Troponin I High Sens 23 Total Protein 6.5 Albumin 2.6 L Globulin 3.9 Albumin/Globulin Ratio 0.7 L Urine Color Urine Clarity Urine pH Ur Specific [place] Urine Protein Urine Glucose (UA) Urine Ketones Urine Occult Blood Urine Nitrite Urine Bilirubin Urine Urobilinogen Ur Leukocyte Esterase Urine RBC Urine WBC Ur Squamous Epith Cells Urine Bacteria Urine Mucus 08/22/21 18:50 WBC RBC Hgb Hct MCV MCH MCHC RDW Std Deviation RDW Coeff of Samreen Plt Count MPV Neut % (Auto) Absolute Neuts (auto) Absolute Lymphs (auto) Total Counted Neutrophils % (Manual) Band Neutrophils % Lymphocytes % (Manual) Monocytes % (Manual) Basophils % (Manual) Metamyelocytes % Nucleated RBCs/100 WBC Diff Path Review Platelet Estimate RBC Morphology Anisocytosis PT INR APTT Sodium Potassium Chloride Carbon Dioxide Anion Gap BUN Creatinine Estim Creat Clear Calc Est GFR (MDRD) Af Amer Est GFR (MDRD) Non-Af BUN/Creatinine Ratio Glucose Calcium Total Bilirubin AST ALT Alkaline Phosphatase Troponin I High Sens Total Protein Albumin Globulin Albumin/Globulin Ratio Urine Color Yellow Urine Clarity Clear Urine pH 7.0 Ur Specific [place] 1.005 Urine Protein 15 H Urine Glucose (UA) Normal Urine Ketones 5 H Urine Occult Blood Negative Urine Nitrite Negative Urine Bilirubin Negative Urine Urobilinogen Normal Ur Leukocyte Esterase 25 H Urine RBC 0 SEEN Urine WBC 0 SEEN Ur Squamous Epith Cells 0 SEEN Urine Bacteria 0 SEEN Urine Mucus 0 SEEN ABG Data ABG results: ABG 08/22/21 17:56 Specimen Type ART Sample Site L Radial pH 7.48 H Bicarbonate Actual 25.7 Total CO2 27 Base Excess 2 O2 Saturation 91 L O2 % 50 ABG pCO2 34.5 L ABG pO2 56 L Alex Test Positive O2 Delivery Device Venti Mask Radiography Chest X-Ray - ED: 1 View, Read by ED Physician, Read by Radiologist, Right Effusion and Right Rib Fx Diagnostic Testing: Clinical Impression(s) from Imaging Studies Brain CT 08/22/21 17:08 IMPRESSION: 1. No acute intracranial or calvarial abnormality. There is no interval change. 2. Stable sinusitis. Electronically Signed: Julio Rivera DO at 18:47 EST Reading Location ID and State: [employer] [facility] [employer] Tel [phone], Service support , Chest X-Ray 08/22/21 17:08 IMPRESSION: 1. Multiple right rib fractures with right pleural effusion and atelectasis. This appears increased from the study of 3 days earlier. Electronically Signed: Julio Rivera DO at 17:47 EST Reading Location ID and State: [employer] / [employer] Tel [phone], Service support , Chest CTA 08/22/21 18:52 IMPRESSION: 1. No evidence of pulmonary embolus. 2. No aortic dissection or aneurysm. There is prominence of the proximal pulmonary arteries suggesting pulmonary hypertension. 3. Enlarged lymph nodes compressing the right main stem bronchus. 4. Consolidation versus collapse of the majority of the right lower lobe with small right pleural effusion. 5. Degenerative changes of the thoracic spine. Right rib fractures. Electronically Signed: Julio Rivera DO at 20:21 EST Reading Location ID and State: [employer] / [employer] Tel [phone], Service support , EKG Initial EKG: Attestation: I personally reviewed and interpreted this EKG as follows: Interpretation: Sinus Rhythm (94) and No Acute Injury Pattern Comments: Frequent PVCs Prior EKG tracings: available for review Prior: Unchanged (07/02/2021) Discharge Plan Triage Chief Complaint: Confusion ED Provider: Romeo Ragsdale Dx/Rx/DC Orders Clinical Impression: Fracture, ribs, Hypoxia, Pleural effusion on right Prescriptions: No Action allopurinol 100 MG tablet 400 mg PO DAILY RF: 0 cyanocobalamin (vitamin B-12) 1,000 MCG/ML solution 1,000 mcg IM Q30D RF: 0 gabapentin 300 MG capsule 300 mg PO TID RF: 0 omeprazole 20 MG capsule 20 mg PO DAILY RF: 0 cholecalciferol (vitamin D3) 5,000 UNIT capsule 5,000 unit PO DAILY RF: 0 ibrutinib 140 MG capsule 420 mg PO LUNCH RF: 0 montelukast 10 MG tablet 10 mg PO QHS RF: 0 albuterol sulfate [Ventolin HFA] 1 INHALER inhaler 2 puff inhalation Q4H PRN PRN (Reason: Wheezing) Qty: 1 RF: 0 multivitamin Tablet 1 tab PO DAILY RF: 0 hydroxyzine HCl 25 mg Tablet 25 mg PO TID PRN (Reason: Anxiety) RF: 0 Renal Caps 1 mg Capsule 1 cap PO DAILY RF: 0 duloxetine 60 mg Capsule,Delayed Release(Dr/Ec) 60 mg PO DAILY RF: 0 alogliptin [Nesina] 12.5 mg Tablet 12.5 mg PO DAILY RF: 0 aspirin [Aspirin Childrens] 81 mg tablet,chewable 81 mg PO DAILY 30 Days Qty: 30 RF: 0 terazosin 1 mg Tablet 1 mg PO QHS RF: 0 ipratropium-albuterol 0.5 mg-3 mg(2.5 mg base)/3 mL Solution For Nebulization 3 ml inhalation Q6HWA.RT Qty: 0 RF: 0 Glucerna 1.2 Gaudencio 0.06-1.2 gram-kcal/mL Liquid 120 ml PO TIDCM Qty: 0 RF: 0 metformin 500 mg Tablet 1,000 mg PO BID RF: 0 hydrocodone-acetaminophen 5-325 mg Tablet 1 tab PO Q8H PRN (Reason: Pain) RF: 0 glimepiride 4 mg Tablet 4 mg PO DAILY RF: 0 pravastatin 20 mg Tablet 20 mg PO DAILY RF: 0 furosemide 20 mg Tablet 20 mg PO DAILY RF: 0 cefdinir [Omnicef] 300 mg Capsule 300 mg PO BID RF: 0 Primary Care Provider: Daniel Camejo Referrals: Daniel Camejo DO [Primary Care Provider] - Disposition Disposition: Acute Care Hospital Discharge Location: [facility]
[2021-08-22 17:18] LABS: Differential Indicated MANUAL DIFF; Hematocrit 32.4 % (40-54); Hemoglobin 10.7 g/dL (13.0-16.5); Mean Corpuscular Hgb 31.4 pg (27.0-32.0); Mean Platelet Vol. 10.8 fl (6.2-12.0); POSITIVE COUNT YES; POSITIVE MORPHOLOGY YES; Platelet Count 118 K/mm3 (150-450); RBC Distribution Width CV 18.8 % (11.6-14.6); RBC Distribution Width SD 63.2 fl (35.1-43.9); Red Blood Count 3.41 M/mm3 (4.6-6.2); White Blood Count 13.2 K/mm3 (4.4-11.0)
[2021-08-22 17:33] LABS: International Normalized Ratio 1.1; Prothrombin Time (Protime)PT. 13.8 SECONDS (11.7-14.9)
[2021-08-22 17:34] LABS: Partial Thromboplast Time 31.3 Seconds (24.1-36.2)
[2021-08-22 17:35] LABS: ALB/GLOB Ratio 0.7 RATIO (0.9-2.4); AST(SGOT) 15 U/L (15-37); Alanine Aminotransfer ALT/SGPT 16 U/L (16-61); Albumin, Serum 2.6 g/dL (3.2-5.0); Alkaline Phosphatase 113 U/L (45-117); Anion Gap 7 (5-15); BUN 26 mg/dL (7-18); BUN/Creat Ratio 24.3 RATIO (10-20); Calcium,Total 9.4 mg/dL (8.5-10.1); Chloride 97 mmol/L (98-107); Creatinine, Serum 1.07 mg/dL (0.70-1.30); EST Glomerular Filtration Rate 70 mL/min (>60); Est Glom Filt Rate - Afr Amer 85 mL/min (>60); Estimated Creatinine Clearance 49.72 ml/min; Globulin 3.9 g/dL (2.2-4.2); Glucose 122 mg/dL (74-106); Potassium 4.6 mmol/L (3.5-5.1); Protein, Total 6.5 g/dL (6.4-8.2); Sodium Level 132 mmol/L (136-145); Troponin-I HS 23 pg/mL (3.0-78.0)
[2021-08-22 17:43] LABS: Basophil 1 % (0-1); Lymphocyte 11 % (19-41); Monocyte 1 % (0-10); Neutrophil-Band 1 % (0-5); Nucleated Red Bld Cells,Manual 1 % (0-5); Total Cells Counted 100 (MANUAL DIFF)
[2021-08-22 17:45] LABS: Metamyelocyte 1 % (0-1); Neutrophil-Segmented 85 % (47-70)
[2021-08-22 17:46] LABS: Anisocytosis 1+; Red Cell Morphology N CHROM NORMAL (NORM C&C)
[2021-08-22 17:47] LABS: Platelet Estimate SLT DEC (ADEQ)
[2021-08-22 17:48] LABS: Absolute Lymphocyte Count 1.45 X10^3/uL (0.83-4.51); Absolute Neutrophil Count 11.4 X10^3/uL (2.0-7.7)
[2021-08-22 18:01] LABS: Allen Test Positive; Base Excess 2 mmol/L (-2 to +2); Bicarbonate 25.7 mmol/L (22-26); Blood Gas Specimen Type ART; FI02 50; O2 Delivery Device Venti Mask; PO2 56 mmHG (75-100); SITE L Radial; SO2 91 % (95-99); Total Carbon Dioxide 27 mmol/L; pCO2 34.5 mmHg (35-45); pH 7.48 (7.35-7.45)
[2021-08-22 18:52] LABS: Bacteria 0 SEEN /hpf (None Seen); Color, Urine Yellow (Yellow); Glucose, Dipstick Normal (Normal); Ketone-Dipstick 5 mg/dl (Negative); Leukocyte Esterase-Dipstick 25 /ul (Negative); Mucous, Urine 0 SEEN /hpf (<or=2+); Nitrite-Dipstick Negative (Negative); Occult Blood-Urine Negative /ul (Negative); Protein-Dipstick 15 mg/dl (Negative); Red Blood Cells-Urine 0 SEEN /hpf (0-5); Specific Gravity, Urine 1.005 (1.002-1.030); Squamous Epithelial Cells - UA 0 SEEN /hpf (0-5); Urine Bilirubin Dipstick Negative (Negative); Urine Clarity Clear (Clear); Urine Urobilinogen Normal (Normal); White Blood Cells 0 SEEN /hpf (0-5)
--- NOTE | 2021-08-22 18:52 | CT_ITS ---
STUDY: CTA CHEST REASON FOR EXAM: Male, 85 years old. Chest trauma. Fall 3 days ago. Broken ribs. Low oxygen levels and confusion. RADIATION DOSAGE (If Supplied By Facility): CTDIvol = ( 10.73 ) mGy, DLP = ( 291.20 ) mGycm TECHNIQUE: The examination was performed with the intravenous administration of 100 mL of [id number]. Post-processing of the angiographic images was performed, with multiplanar reformation and 3D reconstruction. Individualized dose optimization techniques were used for this CT. COMPARISON: Chest and right RIBS, 08/19/2021. Chest, 08/22/2021. CT a of the chest, 06/17/2021. FINDINGS: Normal enhancement of the main pulmonary artery and right and left pulmonary arteries. Normal enhancement of the bilateral peripheral pulmonary arteries. There is no demonstrated pulmonary embolism. There is prominence of the main pulmonary arteries without peripheral pulmonary vascular congestion, suggesting pulmonary hypertension. There is mild atherosclerotic tortuosity of the thoracic aorta without aneurysm. There is no demonstrated aortic dissection. Normal heart and pericardium. Her coronary artery calcifications. There are calcifications at the root of the aorta and mitral valve plane. There are enlarged subcarinal and as azygo esophageal recess lymph nodes. Subcentimeter nonspecific lymph nodes are seen in the AP window and paratracheal region. Normal dianelys. Right hilar lymphadenopathy. Normal trachea and left bronchi. There is narrowing of the right mainstem bronchus secondary large subcarinal and as azygo esophageal lymph nodes. Azygos lobe in the right lung apex. There is a [id number]-basuwntz right pleural effusion. There is consolidation predominantly in the right lower lobe with minimal subcutaneous segmental atelectasis seen in the right upper and right middle lobes. Minimal dependent changes are seen at left lung base. There are fractures of the anterolateral sixth and seventh ribs. The remainder of the lower ribs are not included. There are degenerative changes of thoracic spine. Normal visualized upper abdomen. CT/CTA Chest W/WO Contrast IMPRESSION: 1. No evidence of pulmonary embolus. 2. No aortic dissection or aneurysm. There is prominence of the proximal pulmonary arteries suggesting pulmonary hypertension. 3. Enlarged lymph nodes compressing the right main stem bronchus. 4. Consolidation versus collapse of the majority of the right lower lobe with small right pleural effusion. 5. Degenerative changes of the thoracic spine. Right rib fractures. Electronically Signed: Julio Rivera DO at 20:21 EST Reading Location ID and State: [facility] / [place] Tel [phone], Service support ,
--- NOTE | 2021-08-22 18:56 | ED.RN ---
pt drops to 85-88% on 50% venti if dozes off. when awakened and told to take deeper breaths pt up to 91-92%. pt more alert since venti mask placed. st cathed for 100cc clear qing urine and garret well. back in with family and med list completed.
[2021-08-22] MEDS: Morphine 2 MG/ML Syringe IV (20:39)
[2021-08-22] MEDS: levoFLOXacin IV 750 MG/150 ML BAG 100 MG IV (20:39)
[2021-08-23 15:05] LABS: Pathologist Review Reviewed
== END 2021-08-22 23:59 | disposition short-term general hospital (02) ==
PROVIDERS: Emergency Provider Emergency Medicine; PCP Student in an Organized Health Care Education/Training Program; Visit Provider Emergency Medicine
DX: S22.41XA Multiple fractures of ribs, right side, initial encounter for closed fracture (principal); E11.9 Type 2 diabetes mellitus without complications; J90 Pleural effusion, not elsewhere classified; I49.3 Ventricular premature depolarization; E78.5 Hyperlipidemia, unspecified; R09.02 Hypoxemia; R41.0 Disorientation, unspecified; K21.9 Gastro-esophageal reflux disease without esophagitis; Y93.9 Activity, unspecified; Y99.9 Unspecified external cause status; W19.XXXA Unspecified fall, initial encounter; Y92.9 Unspecified place or not applicable; N40.0 Benign prostatic hyperplasia without lower urinary tract symptoms; M10.9 Gout, unspecified; Z79.899 Other long term (current) drug therapy; Z79.82 Long term (current) use of aspirin; Z79.84 Long term (current) use of oral hypoglycemic drugs
CPT/HCPCS: 36600; 70450; 71045; 71275; 80053; 81001; 82803; 84484; 85025; 85610; 85730; 87426; 93005; 96365; 96366; 96375; 99285; Q9967